=== PATIENT | female | born 1995 | race Hispanic/Latino ===

== ENCOUNTER 2017-01-13 13:57 | Emergency (ER) | payer OTHER, MEDICAID ==
[2017-01-13 14:04] VITALS: BP 129/69; PULSE 76; RESP 18; TEMP 97.6; O2SAT 99
[2017-01-13 15:54] LABS: BASO # 0.2 K/uL (0.0-0.2); BASO % 1.2 % (0.0-2.0); EOS # 0.6 K/uL (0.0-0.7); EOS % 4.2 % (0.0-4.0); HEMATOCRIT 43.3 % (34.0-47.0); LYMPH # 4.6 K/uL (1.0-4.3); MEAN CELL VOLUME 78.2 fl (81.0-99.0); MEAN CORPUSCULAR HEMOGLOBIN 24.9 pg (27.0-31.0); MEAN CORPUSCULAR HGB CONC 31.9 g/dL (33.0-37.0); MEAN PLATELET VOLUME 8.1 fl (7.2-11.7); MONO # 0.8 K/uL (0.0-0.8); MONO % 5.8 % (0.0-10.0); NEUT # 7.7 K/uL (1.8-7.0); NEUT % 55.8 % (50.0-75.0); NRBC % 0.1 % (0.0-0.0); RED CELL DISTRIBUTION WIDTH 15.3 % (11.5-14.5); WHITE BLOOD COUNT 13.9 K/uL (4.8-10.8)
--- NOTE | 2017-01-13 16:04 | US ---
HISTORY: RUQ pain radiating to back COMPARISON: 02/03/2015 TECHNIQUE: Sonographic evaluation of the right upper quadrant of the abdomen. FINDINGS: LIVER: Measures 16.5 cm in length. Hepatopedal blood flow. Fatty infiltration manifest ultrasonographically as increased echogenicity of the liver parenchyma. No mass. No intrahepatic bile duct dilatation. GALLBLADDER: Unremarkable. No gallstones. COMMON BILE DUCT: Measures 4.2 mm. No stones. No dilatation. PANCREAS: Unremarkable as visualized. No mass. No ductal dilatation. RIGHT KIDNEY: Measures 3.3 x 9.0 cm in length. Normal echogenicity. No calculus, mass, or hydronephrosis. AORTA: No aneurysmal dilatation. IVC: Unremarkable. OTHER FINDINGS: None . IMPRESSION: No acute findings related to/accounting for the clinical presentation.
[2017-01-13 16:05] LABS: ALB/GLOB RATIO 1.4 (1.0-2.1); ALKALINE PHOSPHATASE 90 U/L (38-126); ALT/SGPT 17 U/L (9-52); AST/SGOT 32 U/L (14-36); BILIRUBIN,TOTAL 0.7 mg/dl (0.2-1.3); BLOOD UREA NITROGEN 13 mg/dl (7-17); CALCIUM 9.5 mg/dL (8.4-10.2); CARBON DIOXIDE 22 mmol/L (22-30); CHLORIDE 105 mmol/L (98-107); GFR AFRICAN-AMERICAN > 60; GLUCOSE,RANDOM 78 mg/dL (65-105); LIPASE 53 U/L (23-300); POTASSIUM 5.3 MMOL/L (3.6-5.0); SODIUM 141 mmol/l (132-148); TOTAL PROTEIN 8.3 G/DL (6.3-8.2)
--- NOTE | 2017-01-13 16:44 | ED PDOC ---
HPI: Abdomen Chief Complaint (Provider): Flank pain History Per: Patient History/Exam Limitations: no limitations Onset/Duration Of Symptoms: Days Current Symptoms Are (Timing): Still Present Severity: Moderate Pain Scale Rating Of: 5 Location Of Pain/Discomfort: RUQ Quality Of Discomfort: Sharp, "Pain" Associated Symptoms: Nausea. denies: Fever, Chills, Vomiting Exacerbating Factors: Other (urination) Alleviating Factors: None Last Bowel Movement: Today Additional History Per: Patient <Sara Dong - Last Filed: 01/13/17 16:41> <Ihsan Luna - Last Filed: 01/13/17 16:54> Time Seen by Provider: 01/13/17 14:27 Chief Complaint (Nursing): Abdominal Pain Additional Complaint(s): 21 yo F with PMH of depression, CP and radha type I malformation presents to ER with c/o RUQ pain radiating to the back x 2 days. States pain is worse with urination, but denies dysuria or hematuria. No association with food. Mild nausea but no vomiting. Took 2 tabs of tylenol 2 days ago but made pain worse so discontinued use. Denies fever, chills, chest pain SOB. (Sara Dong) Supervising Attending Note - Supervising Attending Note The Documented history was done by the: Physician Passenger Car Cleaning Supervisor, Attending Physician The documented physical exam was done by the: Physician Passenger Car Cleaning Supervisor, Attending Physician The documented procedures were done by the: Physician Passenger Car Cleaning Supervisor, Attending Physician - Attestation: I have personally seen and examined this patient.: Yes I have fully participated in the care of the patient.: Yes I have reviewed all pertinent clinical information: Yes <Ihsan Luna - Last Filed: 01/13/17 16:54> Against Medical Advice <Sara Dong - Last Filed: 01/13/17 16:41> <Ihsan Luna - Last Filed: 01/13/17 16:54> - AMA Patient Left Against Medical Advice: The patient declines admission to the hospital and wishes to leave the Emergency Department. This action is against my medical advice. This decision was made with informed refusal. The patient was told that admission to the hospital is necessary. Explanation of the reasons why were discussed. The risks of leaving were explained to the patient and include, but are not limited to, worsening of known or currently unknown conditions, permanent disability and from undiagnosed or untreated conditions. The patient has the capacity to make this informed decision and understands my explanation of the current medical problem and risks of leaving. The patient voluntarily accepts these risks and signed an AMA form documenting our conversation. The patient was given the opportunity to ask questions and reconsider. The patient was encouraged to return to the Emergency Department at any time for further care. Past Medical History Reviewed: Historical Data, Nursing Documentation, Vital Signs - Medical History PMH: Anxiety, Asthma, Depression, Gastritis, Gall Bladder Disease - Surgical History Surgical History: Tonsillectomy - Family History Family History: States: Unknown Family Hx <Sara Dong - Last Filed: 01/13/17 16:41> <Ihsan Luna - Last Filed: 01/13/17 16:54> Vital Signs: Last Vital Signs Temp 97.6 F 01/13/17 14:01 Pulse 76 01/13/17 14:01 Resp 18 01/13/17 14:01 BP 129/69 01/13/17 14:01 Pulse Ox 99 01/13/17 16:50 - Home Medications Home Medications: Ambulatory Orders Medication Instructions Recorded ARIPiprazole [Abilify] 5 mg PO DAILY 04/01/16 FLUoxetine [Prozac] 20 mg PO BID 04/01/16 OXcarbazepine [Trileptal] 150 mg PO BID 04/01/16 Ciprofloxacin HCl [Cipro] 500 mg PO BID #0 tablet 04/02/16 Ciprofloxacin [Cipro] 500 mg PO Q8 #0 tab 04/02/16 - Allergies Allergies/Adverse Reactions: Allergies Allergy/AdvReac Type Severity Reaction Status Date / Time apple Allergy URTICARIA Verified 01/13/17 14:01 PEACH Allergy Mild URTICARIA Uncoded 01/13/17 14:01 PLUM Allergy URTICARIA Uncoded 01/13/17 14:01 Review of Systems Constitutional: Negative for: Fever, Chills Cardiovascular: Negative for: Chest Pain, Palpitations Respiratory: Negative for: Cough, Shortness of Breath Gastrointestinal: Positive for: Nausea, Abdominal Pain. Negative for: Vomiting Genitourinary Female: Negative for: Dysuria, Frequency, Incontinence, Hematuria Musculoskeletal: Negative for: Neck Pain, Shoulder Pain Skin: Negative for: Rash Psych: Negative for: Suicidal ideation <Sara Dong - Last Filed: 01/13/17 16:41> Physical Exam - Reviewed Nursing Documentation Reviewed: Yes Vital Signs Reviewed: Yes - Physical Exam Appears: Positive for: No Acute Distress Head Exam: Negative for: NORMAL INSPECTION (scar on right forehead from prior surgery) Skin: Positive for: Normal Color, Warm, Dry Eye Exam: Positive for: EOMI Neck: Positive for: Normal, Painless ROM Cardiovascular/Chest: Positive for: Regular Rate, Rhythm Respiratory: Positive for: Normal Breath Sounds Gastrointestinal/Abdominal: Positive for: Bowel Sounds (+), Soft, Tenderness ( RUQ with rebound, positive Mcneill's sign), Rebound. Negative for: Distended, Guarding Back: Positive for: R CVA Tenderness. Negative for: L CVA Tenderness Extremity: Positive for: Other (right wrist splint/scar from prior surgery 5 months ago) <Sara Dong - Last Filed: 01/13/17 16:41> - Laboratory Results Result Diagrams: 01/13/17 15:15 01/13/17 15:15 - ECG O2 Sat by Pulse Oximetry: 99 <Sara Dong - Last Filed: 01/13/17 16:41> - Laboratory Results Result Diagrams: 01/13/17 15:15 01/13/17 15:15 <Ihsan Luna - Last Filed: 01/13/17 16:54> - Progress ED Course And Treament: CBC, CMP, lipase, UA sent US gallbladder/CBD US resulted - wnl CT scan to r/o nephrolithiasis vs pyelonephritis Pt refused morphine, states she is feeling better Refuses CT scan because symptoms have resolved Discussed risks with pt of undiagnosed reason of pain; pt and mother verbalized understanding. AMA form signed. (Sara Dong) Disposition - Disposition Disposition: Against Medical Advice Disposition Time: 16:50 <Sara Dong - Last Filed: 01/13/17 16:41> <Ihsan Luna - Last Filed: 01/13/17 16:54> - Clinical Impression Clinical Impression: Abdominal pain - Disposition Condition: STABLE
[2017-01-13 16:50] LABS: RBC URINE 5 /hpf (0-3); URINE BILIRUBIN NEGATIVE (NEGATIVE); URINE BLOOD NEGATIVE (NEGATIVE); URINE COLOR YELLOW (YELLOW); URINE GLUCOSE (UA) NEG (Normal); URINE KETONE NEGATIVE (NEGATIVE); URINE LEUKOCYTE ESTERASE SMALL Leu/uL (Negative); URINE PROTEIN NEGATIVE (NEGATIVE); URINE UROBILINOGEN 0.2-1.0 mg/dL (0.2-1.0); WBC URINE 2 /hpf (0-5)
== END 2017-01-13 16:54 | disposition left against medical advice (07) ==
LOC: H.ER 13:57
DX: R10.9 Unspecified abdominal pain (principal)

== ENCOUNTER 2017-02-09 12:31 | Inpatient (IN) | payer OTHER, MEDICAID ==
--- NOTE | 2017-02-09 14:48 | ED PDOC ---
HPI: Psych/Substance Abuse Time Seen by Provider: 02/09/17 12:34 Chief Complaint (Nursing): Psychiatric Evaluation Chief Complaint (Provider): Psychiatric Evaluation History Per: Patient History/Exam Limitations: no limitations Onset/Duration Of Symptoms: Days (x1) Additional Complaint(s): 12:34 Tahira Ramos, 21 year old female presents to the ED on 02/09/17 sent by her psychiatrist for suicidal ideations. The patient states that she is not experiencing suicidal ideations right now, but they do come and go. The patient' s last suicidal attempt was in August 2016, as she tried to jump off a balcony. The patient states that yesterday she felt suicidal, but felt better today after talking to her mother. Past Medical History Reviewed: Historical Data, Nursing Documentation, Vital Signs Vital Signs: Last Vital Signs Temp 98.0 F 02/09/17 12:34 Pulse 72 02/09/17 12:34 Resp 22 02/09/17 12:34 BP 132/67 02/09/17 12:34 Pulse Ox 100 02/09/17 12:34 - Medical History PMH: Anxiety, Asthma, Depression, Gastritis, Gall Bladder Disease Other PMH: Cerebral Palsy, budd-chiari malformation - Surgical History Surgical History: Tonsillectomy - Family History Family History: States: Unknown Family Hx - Home Medications Home Medications: Ambulatory Orders Medication Instructions Recorded ARIPiprazole [Abilify] 5 mg PO DAILY 04/01/16 FLUoxetine [Prozac] 20 mg PO BID 04/01/16 LORazepam [Ativan] 0.5 mg PO Q8H PRN 02/09/17 OXcarbazepine [Trileptal] 300 mg PO BID 02/09/17 - Allergies Allergies/Adverse Reactions: Allergies Allergy/AdvReac Type Severity Reaction Status Date / Time apple Allergy URTICARIA Verified 01/13/17 14:01 PEACH Allergy Mild URTICARIA Uncoded 01/13/17 14:01 PLUM Allergy URTICARIA Uncoded 01/13/17 14:01 Review of Systems Psych: Positive for: Suicidal ideation Physical Exam - Reviewed Nursing Documentation Reviewed: Yes Vital Signs Reviewed: Yes - Physical Exam Appears: Positive for: Non-toxic, No Acute Distress Head Exam: Positive for: ATRAUMATIC, NORMOCEPHALIC Skin: Negative for: Normal Color (Scar on right eyebrow; multiple scars from self mutilation; right forearm surgical incision; skin graft) ENT: Positive for: Normal ENT Inspection Neck: Positive for: Normal Cardiovascular/Chest: Positive for: Regular Rate, Rhythm, Chest Non Tender Respiratory: Positive for: Normal Breath Sounds. Negative for: Accessory Muscle Use, Respiratory Distress Gastrointestinal/Abdominal: Positive for: Normal Exam, Soft. Negative for: Tenderness Extremity: Positive for: Deformity, Other (muscle contractions of right hand and right leg). Negative for: Normal ROM Neurologic/Psych: Positive for: Alert, Oriented (x3) - Laboratory Results Result Diagrams: 02/09/17 15:36 02/09/17 15:36 - ECG O2 Sat by Pulse Oximetry: 100 (RA) Pulse Ox Interpretation: Normal Medical Decision Making Medical Decision Makin - Pt signed in and I was informed by Kimberly that she is going to be admitted. Initial Plan: * ED EKG * Alcohol Serum Stat * COMP Metabolic Panel Stat * Drug Screen, Urine Stat * CBC Stat * Urinalysis Stat * EDNURTX Stat * Crisis Evaluation Stat Scribe Attestation: Documented by Melonie Henderson, acting as a scribe for Karen Blackwell PA-C. Provider Scribe Attestation: All medical record entries made by the Scribe were at my direction and personally dictated by me. I have reviewed the chart and agree that the record accurately reflects my personal performance of the history, physical exam, medical decision making, and the department course for this patient. I have also personally directed, reviewed, and agree with the discharge instructions and disposition. Disposition - Clinical Impression Clinical Impression: Depression - Patient ED Disposition Is Patient to be Admitted: Yes - Disposition Disposition Time: 15:40 Condition: STABLE - Pt Status Changed To: Hospital Disposition Of: Inpatient - Admit Certification Admit to Inpatient:: After my assessment, the patient will require hospitalization for at least two midnights. This is because of the severity of symptoms shown, intensity of services needed, and/or the medical risk in this patient being treated as an outpatient. - POA Present On Arrival: None
[2017-02-09 15:54] LABS: HEMATOCRIT 42.7 % (34.0-47.0); MEAN CELL VOLUME 78.9 fl (81.0-99.0); MEAN CORPUSCULAR HEMOGLOBIN 25.2 pg (27.0-31.0); RED CELL DISTRIBUTION WIDTH 14.1 % (11.5-14.5); WHITE BLOOD COUNT 11.8 K/uL (4.8-10.8)
[2017-02-09 15:56] LABS: URINE BILIRUBIN NEGATIVE (NEGATIVE); URINE BLOOD NEGATIVE (NEGATIVE); URINE COLOR YELLOW (YELLOW); URINE GLUCOSE (UA) NEG (Normal); URINE KETONE NEGATIVE (NEGATIVE); URINE LEUKOCYTE ESTERASE NEG Leu/uL (Negative); URINE PROTEIN NEGATIVE (NEGATIVE); URINE UROBILINOGEN 0.2-1.0 mg/dL (0.2-1.0); WBC URINE 2 /hpf (0-5)
[2017-02-09 15:58] LABS: ALB/GLOB RATIO 1.3 (1.0-2.1); ALCOHOL SERUM < 10 mg/dl (0-10); ALKALINE PHOSPHATASE 97 U/L (38-126); ALT/SGPT 26 U/L (9-52); AST/SGOT 27 U/L (14-36); BILIRUBIN,TOTAL 0.6 mg/dl (0.2-1.3); BLOOD UREA NITROGEN 7 mg/dl (7-17); CALCIUM 9.3 mg/dL (8.4-10.2); CARBON DIOXIDE 23 mmol/L (22-30); CHLORIDE 105 mmol/L (98-107); GFR AFRICAN-AMERICAN > 60; GLUCOSE,RANDOM 78 mg/dL (65-105); SODIUM 141 mmol/l (132-148); TOTAL PROTEIN 8.2 G/DL (6.3-8.2)
[2017-02-09 16:27] LABS: POTASSIUM 4.1 MMOL/L (3.6-5.0)
--- NOTE | 2017-02-09 16:45 | RAD ---
HISTORY: admission COMPARISON: Comparison chest 05/01/2015 FINDINGS: LUNGS: No active pulmonary disease. PLEURA: No significant pleural effusion identified, no pneumothorax apparent. CARDIOVASCULAR: Normal. OSSEOUS STRUCTURES: Questionable old healed fracture deformity left posterior 10th rib. VISUALIZED UPPER ABDOMEN: Normal. OTHER FINDINGS: None. IMPRESSION: No acute cardiopulmonary disease.
[2017-02-09 17:59] VITALS: O2SAT 97
[2017-02-09 19:02] VITALS: RESP 18
[2017-02-09] MEDS ORDERED: DiphenhydrAMINE 50 mg/ml Inj IM PRN (19:08)
[2017-02-09] MEDS ORDERED: Alum-Mag Hydrox-Simethicone Susp (30 mL) PO PRN (19:08)
[2017-02-09] MEDS ORDERED: Magnesium Hydroxide Susp 30 ml UD PO PRN (19:08)
[2017-02-10 08:03] LABS: T4 6.28 ug/dl (5.5-11.0)
[2017-02-10 08:16] LABS: THYROID STIMULATING HORMONE 1.9 mIU/ML (0.46-4.68)
--- NOTE | 2017-02-10 13:38 | PCM.PSYCH ---
Initial Psychiatric Evaluation - Initial Psychiatric Evaluation Type of Admission: Voluntary Legal Status: Capacity Chief Complaint (in patient's own words): my therapist sent me here Patient's Reaction to Hospitalization: i think i am fine History of Present Illness and Precipitating Events: 21 yo female who made a suicide by jumping of an 8 story window in august and was in a [facility]. she is currently seen at the clinic and is scheduled to be starting the php soon. she apparently was expressing some suicidal thoughts in her therapy session. pt states she does not want to kill herself and states she is feeling much better since her medications were started. she reports she did stop taking depakote without telling her doctor and was urged to do this by her mother. she reports she feels better not being on depakote. she reports she is bored and needs more structure and activity. she denies that she is being bullied in the community like she was last year and that she was sent her just for a precaution. apparently pt's mother has called and does not feel the patient is suicidal. she has been anxious on the unit and reported feeling "bullied on the unit" but now states that she just was misintepreting a peers. she states her mood is "fine" and states when she does feel suicidal she is able to cope with it. she reports she has goals of attending acting classes in the fall. she states she is currently feeling safe. she denies having any psychotic symptoms, but from her reports she may have some paranoid delusions. she reports taking medications as prescribed except for depakote. Current Medications: Active Medications Generic Name Dose Route Start Last Admin Trade Name Donalq PRN Reason Stop Dose Admin Acetaminophen 650 mg 02/09/17 19:08 Tylenol 325mg Tab PO Q4 PRN Pain, moderate (4-7) Al Hydrox/Mg Hydrox/Simethicone 30 ml 02/09/17 19:08 Maalox Plus 30 Ml PO Q4 PRN Dyspepsia Aripiprazole 5 mg 02/10/17 13:30 Abilify PO DAILY PERLA Diphenhydramine HCl 50 mg 02/09/17 19:08 Benadryl IM Q6 PRN Extrapyramidal S/S Unable PO Diphenhydramine HCl 50 mg 02/09/17 19:08 Benadryl PO Q6 PRN Extrapyramidal Symptoms Diphenhydramine HCl 50 mg 02/09/17 19:13 02/09/17 21:29 Benadryl PO 50 mg HS PRN Administration Sleep Fluoxetine HCl 20 mg 02/10/17 17:00 Prozac PO BID PERLA Haloperidol 5 mg 02/09/17 19:08 Haldol PO Q4 PRN Agitation Haloperidol Lactate 5 mg 02/09/17 19:08 Haldol IM Q4 PRN Agitation, Unable to Take PO Lorazepam 2 mg 02/09/17 19:08 Ativan IM Q4 PRN Anxiety/Agitation,Unable PO Lorazepam 2 mg 02/09/17 19:08 02/10/17 08:56 Ativan PO 2 mg Q4 PRN Administration Anxiety/Agitation Magnesium Hydroxide 30 ml 02/09/17 19:08 Milk Of Magnesia PO HS PRN Constipation Oxcarbazepine 300 mg 02/10/17 17:00 Trileptal PO BID PERLA Past Psychiatric History - Past Psychiatric History Previous Treatment History: Inpatient Prior Professional Help: 2 previous admissions to in- last in 2012 History of Abuse: reports being bullied in her community in the past. History of ETOH/Drug Use: denies History of Family Illness: denies Pertinent Medical Hx (Current Medical&Sleep Prob, Allergies): Allergies Allergy/AdvReac Type Severity Reaction Status Date / Time apple Allergy URTICARIA Verified 01/13/17 14:01 PEACH Allergy Mild URTICARIA Uncoded 01/13/17 14:01 PLUM Allergy URTICARIA Uncoded 01/13/17 14:01 ARIPiprazole [Abilify] 5 mg PO DAILY 04/01/16 FLUoxetine [Prozac] 20 mg PO BID 04/01/16 LORazepam [Ativan] 0.5 mg PO Q8H PRN 02/09/17 OXcarbazepine [Trileptal] 300 mg PO BID 02/09/17 pt with injuries from her suicide attempt. was in a coma. walks with a cane. has multiple surgeries to repair fractures Review of Systems - Psychiatric Psychiatric: As Per HPI Mental Status Examination - Personal Presentation Personal Presentation: Looks older than stated age Additional comments: walks with cane - Affect Affect: Constricted - Motor Activity Motor Activity: Calm - Reliability in Providing Information Reliability in Providing Information: Good - Speech Speech: Organized - Mood Mood: Neutral - Formal Thought Process Formal Thought Process: Paranoia (? feels bullied here.) - Obsessions/Compulsions Obsessions: No Compulsions: No - Cognitive Functions Orientation: Person, Place, Situation, Time Sensorium: Alert Attention/Concentration: Attentive Abstract Thinking: Garrison Estimate of Intelligence: Average Judgement: Intact, as evidence by: Insight regarding need for hospitalization Memory: Recent intact, as evidence by: Ability to recall events of the day, Remote intact, as evidenced by: Abilit to recall sig. life events - Risk Risk: Suicidal (history of attempt. denies suicidal thoughts/intent now. feels safe on unit and at home), Diminished functioning - Strength & Assets Inventory Strength & Assets Inventory: Intelligence, Family support DSM 5 DX - DSM 5 DSM 5 Diagnosis: major depression recurrent severe r/o bipolar disorder by pt's history - Recommended/Plan of Treatment Treatment Recommendations and Plan of Treatment: admit to [facility] for safety and observation gather collateral information provide supportive therapy adjust medications- restart previous medications and monitor. encouraged pt to not stop any medications without discussing with her doctor so she can get appropriate care. hospitalist consult disposition planning Projected ELOS: 3-5 days Prognosis: fair - Smoking Cessation Smoking Cessation Initiated: No Reason for not providing: does not smoke
--- NOTE | 2017-02-10 16:46 | CARD ---
APPROVED REPORT EKG Measurement Heart [id number] <Conclusion> Sinus bradycardia Otherwise normal ECG
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
--- NOTE | 2017-02-11 15:26 | PCM.PYCHPN ---
Psychiatric Progress Note - Psychiatric Progress Note Patient seen today, length of contact: discussed with team Patient Chief Complaint: when do you think i can go Problems Identified/Issues Discussed: pt talking medications as prescribed. she denies medication side effects. she is focused on being discharged tomorrow. she reports she is not suicidal. she is socializing with peers. Medication Change: No Medical Record Reviewed: Yes Mental Status Examination - Cognitive Function Orientation: Person, Place, Situation, Time Memory: Intact Attention: WNL Concentration: WNL Association: WNL Fund of Knowledge: [facility] Decription of patient's judgement and insights: fair - Mood Mood: Neutral - Affect Affect: Broad - Speech Speech: Appropriate - Formal Thought Process Formal Thought Process: No Impairment Psychotic Thoughts and Behaviors: denies a/v hallucinations - Suicidal Ideation Suicidal Ideation: No - Homicidal Ideation Homicidal Ideation: No Goal/Treatment Plan - Goal/Treatment Plan Need for Continued Stay: Remain at risks for inpatient hospitalization, Severe depression anxiety Progress Toward Problem(s) and Goals/Treatment Plan: major depression recurrent moderate continue current treatment disposition planning- refer to [facility] Estimated Date of D/C: 02/12/17
[2017-02-11 16:28] VITALS: TEMP 97.7
--- NOTE | 2017-02-12 08:24 | PCM.PYCHDC ---
Mental Status Examination - Mental Status Examination Orientation: Person, Place, Situation, Time Memory: Intact Mood: Neutral Affect: Broad Speech: Appropriate Attention: WNL Concentration: WNL Association: WNL Fund of Knowledge: WNL Formal Thought Process: No Impairment Description of patient's judgement and insight: fair Psychotic Thoughts and Behaviors: denies a/v hallucinations Suicidal Ideation: No Current Homicidal Ideation?: No Plan: pt denies any suicidal or homicidal thoughts/plan or intent Discharge Summary - Discharge Note Reason for Hospitalization: sent to er by therapist when pt was expressing feeling depressed with some suicidal thoughts Psychiatric History (includes Medical, Family, Personal Hx): history of depression, suicide attempt in past Consultations:: List each consultation separately and include: 1. Reason for request. 2. Findings. 3. Follow-up Consultations: seen by medical billing manager Summary of Hospital Course include:: 1. Description of specific treatment plan utilized for patients during their course of treatmen. 2. Summarize the time- course for resolution of acute symptoms and/or regressed behaviors. 3. Describe issues identified and worked on during hospitalization. 4. Describe medication utilized. 5. Describe medical problems identified and treated. 6. Reassessment of suicide risk Summary of Hospital Course: 21 yo female who made a suicide by jumping of an 8 story window in august and was in a [facility]hab. she is currently seen at the clinic and is scheduled to be starting the php soon. she apparently was expressing some suicidal thoughts in her therapy session. pt states she does not want to kill herself and states she is feeling much better since her medications were started. she reports she did stop taking depakote without telling her doctor and was urged to do this by her mother. she reports she feels better not being on depakote. she reports she is bored and needs more structure and activity. she denies that she is being bullied in the community like she was last year and that she was sent her just for a precaution. apparently pt's mother has called and does not feel the patient is suicidal. she has been anxious on the unit and reported feeling "bullied on the unit" but now states that she just was misintepreting a peers. she states her mood is "fine" and states when she does feel suicidal she is able to cope with it. she reports she has goals of attending acting classes in the fall. she states she is currently feeling safe. she denies having any psychotic symptoms, but from her reports she may have some paranoid delusions. she reports taking medications as prescribed except for depakote. hospital course admitted to [facility] and oriented to the unit. seen by medical providers. placed on routine safety protocols. seen by the treatment team and restarted on her previous medications. depakote was not restarted. pt attended all groups and was an active participant. she exhibited safe behaviors on the unit and with social with peers. she was agreeing to follow up with the [facility] after her discharge. he family was contacted and supported the discharge. on day of discharged the pt was denying any suicidal or homicidal thoughts/plans of intent. - Final Diagnosis (DSM 5) Condition upon Discharge: STABLE DSM 5: major depression recurrent moderate Disposition: HOME/ ROUTINE Follow-up Treatment Plan: take medications as prescribed do not use alcohol tobacco or other illicit substances follow up with aftercare as directed call 911 if any suicidal or homicidal thoughts Prescriptions/Medication Reconciliation: ARIPiprazole [Abilify] 5 mg PO DAILY #30 FLUoxetine [Prozac] 20 mg PO BID #60 OXcarbazepine [Trileptal] 300 mg PO BID #60 - Smoking Cessation Smoking Cessation Medication prescribed: No Reason for not providing: does not smoke - Antipsychotic Medications Pt discharged on 2 or more routine antipsychotic medications: No
[2017-02-12 08:52] VITALS: BP 111/70; PULSE 80
== END 2017-02-12 14:20 | disposition home or self-care (01) | DRG 885 ==
LOC: H.ER 12:31 → H.ERHOLD 16:59 → H.PSYCH 18:15
PROVIDERS: ADMIT Psychiatry & Neurology Psychiatry; ATTEND Psychiatry & Neurology Psychiatry
PROC: GZHZZZZ Group Psychotherapy (ICD-10-PCS; principal; 2017-02-09)
PROC: GZ56ZZZ Individual Psychotherapy, Supportive (ICD-10-PCS; 2017-02-09)
DX: F33.1 Major depressive disorder, recurrent, moderate (principal); R45.851 Suicidal ideations; F41.9 Anxiety disorder, unspecified; J45.909 Unspecified asthma, uncomplicated; G80.9 Cerebral palsy, unspecified; Z91.018 Allergy to other foods; K29.70 Gastritis, unspecified, without bleeding

== ENCOUNTER 2017-03-09 11:55 | Emergency (ER) | payer OTHER, MEDICAID ==
[2017-03-09 11:57] VITALS: BP 128/86; PULSE 76; TEMP 97; O2SAT 99; BMI 26.3
--- NOTE | 2017-03-09 12:20 | ED PDOC ---
HPI: Psych/Substance Abuse Time Seen by Provider: 03/09/17 12:05 Chief Complaint (Provider): Psychiatric Evaluation History Per: Patient, Family (mother) History/Exam Limitations: no limitations Onset/Duration Of Symptoms: Mins (just prior to arrival) Current Symptoms Are (Timing): Still Present Suicide/Self Injury Attempted (Context): None (patient denies) Severity: Moderate Associated Symptoms: denies: Depression, Suicidal Thoughts, Suicidal Plan Additional Complaint(s): 21 year old female with a pertinent medical history of depression and past suicidal attempts is brought into the ED by EMS for a psychiatric evaluation and a wound check. Patient states that she was at a behavioral group session at [address] [place] [address] in [place] and she took off her wound dressing on her right arm "to make her doctor's job easier" because she had an appointment with her surgeon 5x days from today to have the sutures removed. She reports that she had surgery at [facility] on 02/26/[address] Duarte after she broke her arm after a suicide attempt in August 2016. She denies trying to remove her sutures, although she thinks that one of them is loose. She denies feeling depressed, having any suicidal ideation, or a suicidal plan and she denies having any medical complaints at this time. PMD: Morris Rahman MD Orthopedic hand surgeon: Yonatan Duarte MD Past Medical History Reviewed: Historical Data, Nursing Documentation, Vital Signs Vital Signs: Last Vital Signs Temp 97 F L 03/09/17 11:56 Pulse 76 03/09/17 11:56 Resp BP 128/86 03/09/17 11:56 Pulse Ox 99 03/09/17 11:56 - Medical History PMH: Anxiety, Asthma, Bipolar Disorder, Depression, Fractures, Gastritis, Gall Bladder Disease, Migraine, Osteoporosis Denies: Alzheimer's Disease, Anemia, Arthritis, Atrial Fibrillation, Bronchitis, Cardia Arrhythmia, CHF, COPD, Crohn's Disease, Dementia, Diabetes, Diverticulitis, Emphysema, Hepatitis, HIV, HTN, Hypercholesterolemia, Hyperthyroidism, Hypothyroidism, Mitral Valve Prolapse, Multiple Sclerosis, Pancreatitis, Parkinson's Disease, Peripheral Edema, Personality Disorder, Pneumonia, Pulmonary Embolism, Chronic Kidney Disease, Rheumatoid Arthritis, Schizophrenia, Seizures, Sickle Cell Disease, Sexually Transmitted Disease, Sleep Apnea, TIA - Surgical History Surgical History: Tonsillectomy Denies: Appendectomy, CABG, Carotid Endarterectomy, Cholecystectomy, Coronary Stent, Pacemaker Other surgeries: arm surgery 02/26/2017 - Family History Family History: States: No Known Family Hx, Other Other Family History: mother has bipolar disorder - Social History Alcohol: None Drugs: Denies - Home Medications Home Medications: Ambulatory Orders Medication Instructions Recorded LORazepam [Ativan] 0.5 mg PO Q8H PRN 02/09/17 ARIPiprazole [Abilify] 5 mg PO DAILY #30 02/12/17 FLUoxetine [Prozac] 20 mg PO BID #60 02/12/17 OXcarbazepine [Trileptal] 300 mg PO BID #60 02/12/17 - Allergies Allergies/Adverse Reactions: Allergies Allergy/AdvReac Type Severity Reaction Status Date / Time apple Allergy URTICARIA Verified 03/09/17 12:13 PEACH Allergy Mild URTICARIA Uncoded 03/09/17 12:13 PLUM Allergy URTICARIA Uncoded 03/09/17 12:13 Review of Systems ROS Statement: Except As Marked, All Systems Reviewed And Found Negative Psych: Negative for: Depression, Suicidal ideation Physical Exam - Reviewed Nursing Documentation Reviewed: Yes Vital Signs Reviewed: Yes - Physical Exam Appears: Positive for: Well, Non-toxic, No Acute Distress Head Exam: Positive for: ATRAUMATIC, NORMOCEPHALIC Skin: Positive for: Normal Color, Warm, Dry Neck: Positive for: Normal Cardiovascular/Chest: Positive for: Regular Rate, Rhythm Respiratory: Positive for: Normal Breath Sounds. Negative for: Respiratory Distress Extremity: Positive for: Other (right upper extremity: suture wound noted to dorsum, volar dorsal surface: sutures in tact, (+) discharge, no loose sutures noted.) Neurologic/Psych: Positive for: Alert, Oriented (3x) - Laboratory Results Result Diagrams: 03/09/17 14:28 03/09/17 14:28 - ECG O2 Sat by Pulse Oximetry: 99 (RA) Pulse Ox Interpretation: Normal - Progress ED Course And Treament: seen by crisis Cleared by Dr. Pretty for d/c Diagnosis Major Depressive disorder Xry of wrist:Impression: ORIF changes distal right radius and ulna. In situ fixation plate attached to the distal ulna. Residual screw holes are present within the distal right radius consistent with removal of fixation hardware. . Deformity of the distal radius and ulna with with apparent CT callus formation and cortical new bone. The possibility of osteomyelitis cannot be excluded. Infiltration changes and swelling of the subcutaneous tissues of the distal forearm, likely posttraumatic and postoperative however the possibility of a cellulitis not excluded. xry of hand: IMPRESSION: No acute findings related to/accounting for the clinical presentation. Additional benign and/or incidental findings described above. Findings d/w Dr. Rehman. Patient has no findings of cellulitis/increased pain/ fevers/chills. d/w Dr. Rubalcava orthopedics who is managing patient's care. States Xry findings are post-surgical in nature most likely and patient will f/u with him on Thursday. If any pain or new symptoms occur, patient can call office on Thursday to discuss with them at that time. Medical Decision Making Medical Decision Makin:05 Initial impression: 21 year old female with possible self injurious behavior. Initial plan: * XRay forearm right * XRay hand right 3 views * alcohol serum * CMP * drug screen, urinary * urine * udip * CBC * urinalysis * reevaluation Scribe Attestation: Documented by Amita Canela, acting as a scribe for Luis Rush PA-C. Provider Scribe Attestation: All medical record entries made by the Scribe were at my direction and personally dictated by me. I have reviewed the chart and agree that the record accurately reflects my personal performance of the history, physical exam, medical decision making, and the department course for this patient. I have also personally directed, reviewed, and agree with the discharge instructions and disposition. Disposition - Clinical Impression Clinical Impression: Major depressive disorder, Encounter for wound re-check - Patient ED Disposition Is Patient to be Admitted: No - Disposition Disposition: Routine/Home Disposition Time: 15:49 Condition: FAIR Additional Instructions: FOLLOW UP WITH DR. RUBALCAVA ON THURSDAY PLANNED PLEASE DO NOT REMOVE SPLINT OR SUTURES ON YOUR OWN. Instructions: Splint Care (ED)
[2017-03-09 12:25] VITALS: RESP 18
--- NOTE | 2017-03-09 13:02 | RAD ---
PROCEDURE: Right forearm dated 03/09/2017 HISTORY: History of fracture. COMPARISON: No prior TECHNIQUE: Two views of the right foot performed and compared with concurrent radiographs of the right hand FINDINGS: BONES: The current study reveals postoperative changes of the distal right radius and ulna. . There is a metallic fixation plate transfixed to the distal ulna of which appears intact. No evidence of loosening. . Residual screw holes from since removed hardware distal right radius. There is marked deformity of the distal right radius and to a lesser degree ulna with what appears to represent callus formation and cortical new bone. The possibility of an osteomyelitis cannot be excluded. There are of infiltration changes of the subcutaneous tissues likely at some combination of posttraumatic and postoperative sequela however would possibility of a cellulitis not excluded. Diffuse demineralization of the bones of the wrist as well as the distal radius and ulna. No subcutaneous evidence identified. Note made of what appear to represent residual screw holes within the shaft of the 3rd metacarpal as well. Clinical correlation recommended Impression: ORIF changes distal right radius and ulna. In situ fixation plate attached to the distal ulna. Residual screw holes are present within the distal right radius consistent with removal of fixation hardware. . Deformity of the distal radius and ulna with with apparent CT callus formation and cortical new bone. The possibility of osteomyelitis cannot be excluded. Infiltration changes and swelling of the subcutaneous tissues of the distal forearm, likely posttraumatic and postoperative however the possibility of a cellulitis not excluded.
[2017-03-09 13:17] LABS: SQUAMOUS EPITHIAL 4 /hpf (0-5); URINE BACTERIA RARE (<OCC); URINE BILIRUBIN NEGATIVE (NEGATIVE); URINE BLOOD LARGE (NEGATIVE); URINE CLARITY SLIGHTY-CLOUDY (Clear); URINE COLOR YELLOW (YELLOW); URINE GLUCOSE (UA) NEG (Normal); URINE LEUKOCYTE ESTERASE SMALL Leu/uL (Negative); URINE NITRATE NEGATIVE (NEGATIVE); URINE PROTEIN 30 mg/dL (NEGATIVE); URINE UROBILINOGEN 0.2-1.0 mg/dL (0.2-1.0)
[2017-03-09 13:51] LABS: BARBITURATES, UR NEGATIVE (NEGATIVE); BENZODIAZEPINES, UR NEGATIVE (NEGATIVE)
[2017-03-09 13:54] LABS: OPIATES, UR NEGATIVE (NEGATIVE)
[2017-03-09 13:55] LABS: PHENCYCLIDINE, UR NEGATIVE (NEGATIVE)
[2017-03-09 14:34] LABS: BASO # 0.1 K/uL (0.0-0.2); BASO % 0.8 % (0.0-2.0); EOS # 0.4 K/uL (0.0-0.7); EOS % 3.5 % (0.0-4.0); HEMOGLOBIN 12.3 g/dL (12.0-16.0); LYMPH # 2.6 K/uL (1.0-4.3); LYMPH % 23.5 % (20.0-40.0); MEAN CELL VOLUME 77.6 fl (81.0-99.0); MEAN CORPUSCULAR HEMOGLOBIN 24.8 pg (27.0-31.0); MEAN PLATELET VOLUME 7.9 fl (7.2-11.7); MONO # 0.6 K/uL (0.0-0.8); MONO % 5.7 % (0.0-10.0); NEUT # 7.2 K/uL (1.8-7.0); NEUT % 66.5 % (50.0-75.0); RBC 4.94 Mil/uL (3.80-5.20); WHITE BLOOD COUNT 10.9 K/uL (4.8-10.8)
[2017-03-09 14:46] LABS: ALB/GLOB RATIO 1.5 (1.0-2.1); ALBUMIN 4.5 g/dL (3.5-5.0); ALT/SGPT 48 U/L (9-52); AST/SGOT 26 U/L (14-36); BLOOD UREA NITROGEN 13 mg/dl (7-17); CALCIUM 9.7 mg/dL (8.4-10.2); GFR AFRICAN-AMERICAN > 60; GFR NON-AFRICAN AMERICAN > 60
--- NOTE | 2017-03-09 14:54 | RAD ---
PROCEDURE: Right Hand Radiographs. HISTORY: h/o fx COMPARISON: None. FINDINGS: BONES: Profound osteopenia visualized osseous structures. Residual orthopedic hardware distal radius. Evidence of prior, subsequently removed orthopedic hardware affecting the 2nd and 3rd metacarpals. JOINTS: Contracture deformities noted at the proximal interphalangeal joint level. SOFT TISSUES: Normal. OTHER FINDINGS: None. IMPRESSION: No acute findings related to/accounting for the clinical presentation. Additional benign and/or incidental findings described above.
== END 2017-03-09 16:33 | disposition home or self-care (01) ==
LOC: H.ER 11:55
DX: F33.9 Major depressive disorder, recurrent, unspecified (principal); F31.9 Bipolar disorder, unspecified; F41.9 Anxiety disorder, unspecified; Z48.00 Encounter for change or removal of nonsurgical wound dressing; J45.909 Unspecified asthma, uncomplicated

== ENCOUNTER 2017-04-27 10:40 | Inpatient (IN) | payer OTHER, MEDICAID ==
[2017-04-27 10:44] VITALS: BMI 26.9
--- NOTE | 2017-04-27 11:12 | ED PDOC ---
HPI: Psych/Substance Abuse Time Seen by Provider: 04/27/17 10:50 Chief Complaint (Nursing): Psychiatric Evaluation Chief Complaint (Provider): psych eval History Per: Patient (21 y/o female here with mother for evaluation of agitation /suicidal statement. Mother feels patient has been more aggressive due to Ability medication and has d/c abilify this week until today. Was given one dose that aggravated patient and may have attributed to her smashing ipad. Patient has h/o jumping out of building secondary to suicidal thoughts in care home with multiple fx and long recovery. Currently states she is upset b/c of argument with grandmother and premenstrual syndrome.) Past Medical History Reviewed: Historical Data, Nursing Documentation, Vital Signs Vital Signs: Last Vital Signs Temp 99 F 04/27/17 10:42 Pulse 111 H 04/27/17 10:42 Resp BP 154/97 H 04/27/17 10:42 Pulse Ox 98 04/27/17 10:42 - Medical History PMH: Anxiety, Asthma, Bipolar Disorder, Depression, Fractures, Gastritis, Gall Bladder Disease, Migraine, Osteoporosis Denies: Alzheimer's Disease, Anemia, Arthritis, Atrial Fibrillation, Bronchitis, Cardia Arrhythmia, CHF, COPD, Crohn's Disease, Dementia, Diabetes, Diverticulitis, Emphysema, Hepatitis, HIV, HTN, Hypercholesterolemia, Hyperthyroidism, Hypothyroidism, Mitral Valve Prolapse, Multiple Sclerosis, Pancreatitis, Parkinson's Disease, Peripheral Edema, Personality Disorder, Pneumonia, Pulmonary Embolism, Chronic Kidney Disease, Rheumatoid Arthritis, Schizophrenia, Seizures, Sickle Cell Disease, Sexually Transmitted Disease, Sleep Apnea, TIA Other PMH: h/o Major Depression - Surgical History Surgical History: Tonsillectomy Denies: Appendectomy, CABG, Carotid Endarterectomy, Cholecystectomy, Coronary Stent, Pacemaker - Family History Family History: States: Unknown Family Hx - Home Medications Home Medications: Ambulatory Orders Medication Instructions Recorded LORazepam [Ativan] 0.5 mg PO Q8H PRN 02/09/17 ARIPiprazole [Abilify] 5 mg PO DAILY #30 02/12/17 FLUoxetine [Prozac] 20 mg PO BID #60 02/12/17 OXcarbazepine [Trileptal] 300 mg PO BID #60 02/12/17 - Allergies Allergies/Adverse Reactions: Allergies Allergy/AdvReac Type Severity Reaction Status Date / Time apple Allergy URTICARIA Verified 04/27/17 10:57 PEACH Allergy Mild URTICARIA Uncoded 03/09/17 12:13 PLUM Allergy URTICARIA Uncoded 03/09/17 12:13 Review of Systems ROS Statement: Except As Marked, All Systems Reviewed And Found Negative Physical Exam - Reviewed Nursing Documentation Reviewed: Yes Vital Signs Reviewed: Yes - Physical Exam Appears: Positive for: Well, Non-toxic, No Acute Distress Head Exam: Positive for: ATRAUMATIC, NORMAL INSPECTION, NORMOCEPHALIC Skin: Positive for: Normal Color, Warm, DRY Eye Exam: Positive for: EOMI, Normal appearance, PERRL ENT: Positive for: Normal ENT Inspection Neck: Positive for: Normal, Painless ROM Cardiovascular/Chest: Positive for: Regular Rate, Rhythm Respiratory: Positive for: CNT, Normal Breath Sounds Gastrointestinal/Abdominal: Positive for: Normal Exam, Bowel Sounds, Soft Back: Positive for: Normal Inspection Extremity: Positive for: Normal ROM Neurologic/Psych: Positive for: Alert, Oriented - Laboratory Results Result Diagrams: 04/27/17 11:37 04/27/17 11:37 - ECG O2 Sat by Pulse Oximetry: 98 - Progress ED Course And Treament: SEEN BY CRISIS ADMIT TO DR. ADAMS DIAGNOSIS DEPRESSION Disposition - Clinical Impression Clinical Impression: Depression - Patient ED Disposition Is Patient to be Admitted: Yes - Disposition Disposition Time: 12:37 Condition: FAIR Forms: [facility] (Sinhala) - Pt Status Changed To: Hospital Disposition Of: Inpatient - Admit Certification Admit to Inpatient:: After my assessment, the patient will require hospitalization for at least two midnights. This is because of the severity of symptoms shown, intensity of services needed, and/or the medical risk in this patient being treated as an outpatient.
[2017-04-27 11:38] LABS: RBC URINE 2950 /hpf (0-3); URINE BILIRUBIN NEGATIVE (NEGATIVE); URINE BLOOD LARGE (NEGATIVE); URINE COLOR YELLOW (YELLOW); URINE GLUCOSE (UA) NEG (Normal); URINE KETONE NEGATIVE (NEGATIVE); URINE LEUKOCYTE ESTERASE SMALL Leu/uL (Negative); URINE PROTEIN 100 mg/dL (NEGATIVE); URINE UROBILINOGEN 0.2-1.0 mg/dL (0.2-1.0); WBC URINE 16 /hpf (0-5)
[2017-04-27 11:48] LABS: BASO # 0.1 K/uL (0.0-0.2); BASO % 1.2 % (0.0-2.0); EOS # 0.5 K/uL (0.0-0.7); EOS % 4.7 % (0.0-4.0); HEMATOCRIT 41.8 % (34.0-47.0); LYMPH # 2.7 K/uL (1.0-4.3); LYMPH % 22.9 % (20.0-40.0); MEAN CELL VOLUME 76.9 fl (81.0-99.0); MEAN CORPUSCULAR HEMOGLOBIN 24.9 pg (27.0-31.0); MEAN CORPUSCULAR HGB CONC 32.3 g/dL (33.0-37.0); MEAN PLATELET VOLUME 8.1 fl (7.2-11.7); MONO # 0.6 K/uL (0.0-0.8); NEUT # 7.7 K/uL (1.8-7.0); NEUT % 66.2 % (50.0-75.0); NRBC % 0.1 % (0.0-0.0); WHITE BLOOD COUNT 11.6 K/uL (4.8-10.8)
[2017-04-27 12:00] LABS: ALCOHOL SERUM < 10 mg/dl (0-10); BLOOD UREA NITROGEN 11 mg/dl (7-17); CALCIUM 9.7 mg/dL (8.4-10.2); CARBON DIOXIDE 26 mmol/L (22-30); CHLORIDE 104 mmol/L (98-107); GFR AFRICAN-AMERICAN > 60; GLUCOSE,RANDOM 91 mg/dL (65-105); POTASSIUM 4.2 MMOL/L (3.6-5.0); SODIUM 141 mmol/l (132-148)
[2017-04-27 13:23] VITALS: O2SAT 99
[2017-04-27] MEDS ORDERED: Alum-Mag Hydrox-Simethicone Susp (30 mL) PO PRN (15:15)
[2017-04-27] MEDS ORDERED: Magnesium Hydroxide Susp 30 ml UD PO PRN (15:15)
[2017-04-27] MEDS ORDERED: DiphenhydrAMINE 50 mg/ml Inj IM PRN (15:15)
[2017-04-27 18:16] VITALS: TEMP 97.2
--- NOTE | 2017-04-27 18:17 | PCM.BM ---
Treatment Plan Problems - Problems identified on initial assessmt Agitated/agressive behavior Date Initiated: 04/27/17 Time Initiated: 18:16 Assessment reference: NA Status: Active Treatment assets and liabiliti Patient Assests: self-reliant, ADL independent, negotiates basic needs, good past tx response Patient Liabilities: relationship conflicts (emoitonal issues), other - Milieu Protocol Maintain good personal hygiene: daily Encourage regular showers, daily Remind patient to perform daily oral care, daily Assist patient to perform ADL's Maintain personal safety: daily Educate patient to report safety concerns to staff, daily Monitor environment for contraband/sharps, every shift Educate patient to report safety concerns to staff, every shift Monitor environment for contraband/sharps Medication safety: Monitor for expected outcome, potential side effects: every shift, Assess barriers to learning: every shift, daily, Assess readiness for medication education: every shift, daily
--- NOTE | 2017-04-27 21:03 | PCM.RRTMUL ---
BUSINESS AREA MANAGER Nurse Assessment - Situation BUSINESS AREA MANAGER Responder Arrival Time:: 08:45 Location:: 3rd floor Room Number:: [id number] BUSINESS AREA MANAGER Reason for Call: Tachycardia (Seizure like episode ) BUSINESS AREA MANAGER Called By: RN - IV IV Inserted during BUSINESS AREA MANAGER?: No - Respiratory Oxygen Delivery Method:: Room Air - Vital Signs Blood Pressure:: 149/77 Pulse Rate:: 77 Respiratory Rate:: 18 Temperature:: 97.2 F I.Reason for BUSINESS AREA MANAGER - A) Acute Change in Patient: Subjective: BUSINESS AREA MANAGER was called by RN at 8:42pm for 21 y/o F due to questionable seizure like episode/twitching which lasted less than a min and pt was AAO. upon arrival pt was stable, awake, verbally responsive and able to follow all commands. initial VS BP 149/81, HR113 and O2 sat 99%. unremarkable PE, Accu chek 104 BS, ECG showed sinus tachycardia. BUSINESS AREA MANAGER ended at 9:00pm with BP159/92, HR112, O2 sat 99%, RR 22 and patient was sent to ER for head CT and further evaluation. - Case discussed with Dr. Gil --- Lex Rush, PGY-1 - A) Initial Vital Signs: Blood Pressure: 149/81 Pulse Rate: 113 Respiratory Rate: 22 O2 Sat by Pulse Oximetry: 99 Finger Stick Blood Glucose: 104 - B) Neurological Status (Select all that apply): Alert, Responsive, Oriented, Verbal, Follows Commands - C) Respiratory Oxygen Delivery Method: Room Air - Constitutional Appears: Well, No Acute Distress - Respiratory Exam Respiratory Exam: Clear to Ausculation Bilateral. absent: Accessory Muscle Use , Chest Wall Tenderness - Cardiovascular Exam Cardiovascular Exam: Tachycardia, REGULAR RHYTHM, +S1, +S2 - Neurological Exam Neurological Exam: Alert, Awake, Oriented x3 Plan - A. End of BUSINESS AREA MANAGER Vital Signs: Blood Pressure: 159/92 Pulse Rate: 112 Respiratory Rate: 22 O2 Sat by Pulse Oximetry: 99
[2017-04-27 21:14] VITALS: BP 159/92; PULSE 112; RESP 22
--- NOTE | 2017-04-27 22:22 | CT ---
EXAM: CT Head Without Intravenous Contrast CLINICAL HISTORY: 21 years old, female; Signs and symptoms; Other: Twitching TECHNIQUE: Axial computed tomography images of the head/brain without intravenous contrast. All CT scans at this facility use one or more dose reduction techniques, viz.: automated exposure control; ma/kV adjustment per patient size (including targeted exams where dose is matched to indication; i.e. head); or iterative reconstruction technique. Coronal and sagittal reformatted images were created and reviewed. COMPARISON: CT HEAD OR BRAIN W/O CONT 12/09/2013 6:12:31 PM FINDINGS: Brain: No acute intracranial hemorrhage. Postoperative changes identified within the right frontal lobe, an interval change when compared with 2013 examination. No significant periventricular white matter disease. No edema. Ventricles: No significant ventriculomegaly. Bones: No acute displaced fracture. Sinuses: Mucoperiosteal thickening within the bilateral ethmoid sinuses. Postoperative change within the right maxillary sinus. Mastoid air cells: Unremarkable as visualized. No mastoid effusion. IMPRESSION: No acute intracranial hemorrhage, or suspicious mass effect.
--- NOTE | 2017-04-28 09:41 | RAD ---
PROCEDURE: CHEST RADIOGRAPH, 1 VIEW HISTORY: Chest pain COMPARISON: 02/09/2017. FINDINGS: LUNGS: The lungs are well inflated. The right lung is clear. There is diffuse haziness in the left lung. PLEURA: No pneumothorax or pleural fluid seen. CARDIOVASCULAR: Normal. OSSEOUS STRUCTURES: No significant abnormalities. VISUALIZED UPPER ABDOMEN: Normal. OTHER FINDINGS: None. IMPRESSION: Diffuse haziness in the left lung could represent layering pleural effusion. PA and lateral chest radiographs are recommended for further evaluation.
== END 2017-04-27 21:31 | disposition short-term general hospital (02) | DRG 881 ==
LOC: H.ER 10:40 → H.ERHOLD 12:38 → H.PSYCH 14:47
PROVIDERS: ADMIT Psychiatry & Neurology Psychiatry; ATTEND Psychiatry & Neurology Psychiatry
PROC: GZ58ZZZ Individual Psychotherapy, Cognitive-Behavioral (ICD-10-PCS; principal; 2017-04-27)
DX: F32.9 Major depressive disorder, single episode, unspecified (principal); R56.9 Unspecified convulsions; R00.0 Tachycardia, unspecified; F41.9 Anxiety disorder, unspecified; J45.909 Unspecified asthma, uncomplicated; K29.70 Gastritis, unspecified, without bleeding

== ENCOUNTER 2017-04-27 21:16 | Inpatient (IN) | payer OTHER, MEDICAID ==
[2017-04-27 21:16] VITALS: BMI 26.9
--- NOTE | 2017-04-27 21:33 | ED PDOC ---
HPI: Chest Pain Time Seen by Provider: 04/27/17 21:20 Chief Complaint (Nursing): Seizure Chief Complaint (Provider): Chest pain, seizure like activity History Per: Patient, Other (records) History/Exam Limitations: no limitations Onset/Duration Of Symptoms: Mins Current Symptoms Are (Timing): Gone Now Additional Complaint(s): The patient is a 21yo female, past medical history of asthma, bipolar depressive disorder, admitted earlier today to psychiatric floor for further treatment of her depression. Patient has a twitching type of movement and an episode of confusion after which a rapid response was activated in unit and patient was brought to the ED after evaluation by the FARM PRODUCTS SHIPPER and Dr. Gil. On arrival to ED, patient also reports 1 hour prior, she had an episode of chest pain, which has since resolved. Patient's chest pain was worked up by Dr. Gil who ordered ddimer and troponin levels which were both normal. Patient denies any other medical complaints. Past Medical History Reviewed: Historical Data, Nursing Documentation, Vital Signs Vital Signs: Last Vital Signs Temp 98.6 F 04/28/17 01:00 Pulse 106 H 04/28/17 01:24 Resp 18 04/28/17 01:24 BP 130/73 04/28/17 01:00 Pulse Ox 98 04/28/17 01:24 - Medical History PMH: Anxiety, Asthma, Bipolar Disorder, Depression, Fractures, Gastritis, Gall Bladder Disease, Migraine, Osteoporosis Denies: Alzheimer's Disease, Anemia, Arthritis, Atrial Fibrillation, Bronchitis, Cardia Arrhythmia, CHF, COPD, Crohn's Disease, Dementia, Diabetes, Diverticulitis, Emphysema, Hepatitis, HIV, HTN, Hypercholesterolemia, Hyperthyroidism, Hypothyroidism, Mitral Valve Prolapse, Multiple Sclerosis, Pancreatitis, Parkinson's Disease, Peripheral Edema, Personality Disorder, Pneumonia, Pulmonary Embolism, Chronic Kidney Disease, Rheumatoid Arthritis, Schizophrenia, Seizures, Sickle Cell Disease, Sexually Transmitted Disease, Sleep Apnea, TIA - Surgical History Surgical History: Tonsillectomy Denies: Appendectomy, CABG, Carotid Endarterectomy, Cholecystectomy, Coronary Stent, Pacemaker - Family History Family History: States: Unknown Family Hx - Social History Current smoker - smoking cessation education provided: No Alcohol: None Drugs: Denies - Home Medications Home Medications: Ambulatory Orders Medication Instructions Recorded LORazepam [Ativan] 0.5 mg PO Q8H PRN 02/09/17 OXcarbazepine [Trileptal] 300 mg PO BID #60 02/12/17 ARIPiprazole [Abilify] 15 mg PO DAILY 04/27/17 Sertraline [Zoloft] 25 mg PO DAILY 04/27/17 - Allergies Allergies/Adverse Reactions: Allergies Allergy/AdvReac Type Severity Reaction Status Date / Time apple Allergy URTICARIA Verified 04/27/17 10:57 PEACH Allergy Mild URTICARIA Uncoded 03/09/17 12:13 PLUM Allergy URTICARIA Uncoded 03/09/17 12:13 Review of Systems ROS Statement: Except As Marked, All Systems Reviewed And Found Negative Cardiovascular: Positive for: Chest Pain (now resolved) Neurological: Positive for: Seizures (seizure like episode) Physical Exam - Reviewed Nursing Documentation Reviewed: Yes Vital Signs Reviewed: Yes - Physical Exam Appears: Positive for: Well, Non-toxic, No Acute Distress Head Exam: Positive for: ATRAUMATIC, NORMAL INSPECTION, NORMOCEPHALIC Skin: Positive for: Normal Color, Warm Eye Exam: Positive for: Normal appearance Neck: Positive for: Normal, Supple Cardiovascular/Chest: Positive for: Regular Rate, Rhythm Respiratory: Positive for: Normal Breath Sounds. Negative for: Respiratory Distress Gastrointestinal/Abdominal: Positive for: Normal Exam Back: Positive for: Normal Inspection Extremity: Positive for: Normal ROM. Negative for: Deformity, Swelling Neurologic/Psych: Positive for: Alert, Oriented, Motor/Sensory Deficits, Other ( patient's speech slow to respond, resolved within couple minutes) - Laboratory Results Result Diagrams: 04/27/17 23:00 04/28/17 04:20 - ECG O2 Sat by Pulse Oximetry: 100 (RA) Pulse Ox Interpretation: Normal - Critical Care Total Time (In Min): 30 Documented Critical Care: Time excludes all time spent performint seperately billable procedures Medical Decision Making Medical Decision Making: Time: 2129 Impression: 19y/o with seizure like activity and chest pain in setting of recent hospitalization for bipolar depression Plan: -- Labs -- EKG -- Chest x-ray -- Accucheck -- CT Head Reassess Time: 2154 Labs reviewed and show no clinically significant abnormalities. Chest x-ray as read by provider indicates no acute disease. Case discussed with patient's PCP Aaron Fatima, who is aware of plan. Patient to be admitted to telemetry for chest pain and seizure like activity. Time: 2226 Provider called to bedside by network security analyst for evaluation of a possible seizure activity. Patient observed to have a seizure, which stopped 15 seconds later. Time: 2228 Second seizure episode witnessed. Ativan 2mg IV ordered. Keppra 750mg/100ml NS IVPB Patient to be upgraded to ICU. Dr. Gil, hospitalist production controller, informed. Time: [address] Guaman, neurologist production controller who advised if Vimpat is available, stop Keppra and start Vimpat. Keppra order cancelled and Vimpat 200mg/100ml NS IVPB ordered. Patient's PCP Aaron Fatima also made aware of new updates. CT Head FINDINGS: Brain: No acute intracranial hemorrhage. Postoperative changes identified within the right frontal lobe, an interval change when compared with 2014 examination. No significant periventricular white matter disease. No edema. Ventricles: No significant ventriculomegaly. Bones: No acute displaced fracture. Sinuses: Mucoperiosteal thickening within the bilateral ethmoid sinuses. Postoperative change within the right maxillary sinus. Mastoid air cells: Unremarkable as visualized. No mastoid effusion. IMPRESSION: No acute intracranial hemorrhage, or suspicious mass effect. Time: 2336 Patient with another episode of witnessed seizure. Ativan 2mg IV ordered Time: 2341 Upon re-evaluation by provider, patient noted to have multiple healed scars on her right forearm, indicative of surgeries; patient also with right forehead scar. Patient's mother is at bedside and she provides more history; mother reports in October, patient fell from [facility] and incurred severe trauma to her right head, right arm and right leg. Patient was then hospitalized and required multiple surgeries including neurocranial reconstruction, right forearm reconstruction and right knee surgery. Patient was subsequently given a diagnosis of clonus. Mother reports some acitivity she's noted at home is similar to clonus however seizure like activity noted by provider is different than previous episodes of clonus as described by the mother. Time: 2355 Patient with another episode of seizure, Ativan 2mg IV ordered. Scribe Attestation: Documented by Francesca Wilson acting as a scribe for Nagi Jara MD. Provider Attestation: All medical record entries made by the Scribe were at my direction and personally dictated by me. I have reviewed the chart and agree that the record accurately reflects my personal performance of the history, physical exam, medical decision making, and the department course for this patient. I have also personally directed, reviewed, and agree with the discharge instructions and disposition. Disposition - Clinical Impression Clinical Impression: Seizure - Patient ED Disposition Is Patient to be Admitted: Yes Discussed With Dr.: Jackelyn Gil (Genesis Fatima/Dr Guaman) Counseled Patient/Family Regarding: Studies Performed, Diagnosis - Disposition Disposition Time: 21:10 Condition: GUARDED - Pt Status Changed To: Hospital Disposition Of: Inpatient - Admit Certification Admit to Inpatient:: After my assessment, the patient will require hospitalization for at least two midnights. This is because of the severity of symptoms shown, intensity of services needed, and/or the medical risk in this patient being treated as an outpatient.
[2017-04-27] MEDS ORDERED: Lacosamide 200mg/20ml 200 MG in Sodium Chloride 0.9% 100 ML IVPB STA (22:37)
--- NOTE | 2017-04-27 22:49 | CP.PCM.CON ---
History of Present Illness - History of Present Illness History of Present Illness: CC: New-onset seizures HPI: This is a 21-year-old female with medical history significant for depression, anxiety, bipolar disorder, and asthma among other medical conditions who was initially admitted to psychiatry for treatment of depression and for possible suicidal ideation. This evening the psychiatry staff reported that patient was complaining of chest pain. At that time her vital signs were stable. Labs, chest x-ray, and EKG were ordered for further workup. While staff was starting her workup, she was noted to have 2 episodes of what appeared to be seizure-like activity. An CARTOGRAPHY SUPERVISOR was called. By the time the CARTOGRAPHY SUPERVISOR team had arrived, seizure activity had resolved, and patient was awake and interactive. Vital signs were stable, and blood sugar was over 100. Patient did state that she felt weird before the seizure. Patient denied prior history of seizures, but she did report myoclonic episodesin the past. Patient does state that she has suffered from head trauma in the past, about 6-7 months ago. Patient denies chest pain currently, denies shortness of breath, denies fevers, chills, nausea. Patient denies any focal weakness. Review of systems: 14 systems reviewed, negative other than HPI Medical history: Depression, anxiety, bipolar disorder, asthma, migraines, gastritis, possible gallstones Surgical history: Tonsil surgery Allergies: No known medical allergies Medications: As per med rec Family history: No relevant family history Social history: Lives with family, denies alcohol, denies tobacco, denies drugs Past Patient History - Infectious Disease Hx of Infectious Diseases: None - Past Medical History & Family History Past Medical History?: Yes - Past Social History Alcohol: None Drugs: Denies - CARDIAC Hx Atrial Fibrillation: No Hx Cardia Arrhythmia: No Hx Congestive Heart Failure: No Hx Hypercholesterolemia: No Hx Hypertension: No Hx Mitral Valve Prolapse: No Hx Pacemaker: No Hx Peripheral Edema: No - PULMONARY Hx Asthma: Yes Hx Bronchitis: No Hx Chronic Obstructive Pulmonary Disease (COPD): No Hx Emphysema: No Hx Pneumonia: No Hx Pulmonary Embolism: No Hx Sleep Apnea: No - NEUROLOGICAL Hx Alzheimer's Disease: No Hx Dementia: No Hx Migraine: Yes Hx Multiple Sclerosis: No Hx Parkinson's Disease: No Hx Seizures: No Hx Transient Ischemic Attacks (TIA): No - HEENT Hx HEENT Problems: No - RENAL Hx Chronic Kidney Disease: No - ENDOCRINE/METABOLIC Hx Hyperthyroidism: No Hx Hypothyroidism: No - HEMATOLOGICAL/ONCOLOGICAL Hx Anemia: No Hx Human Immunodeficiency Virus (HIV): No Hx Sickle Cell Disease: No - INTEGUMENTARY Hx Squamous Cell: Yes Other/Comment: liu from [employer] - MUSCULOSKELETAL/RHEUMATOLOGICAL Hx Arthritis: No Hx Fractures: Yes Hx Osteoporosis: Yes Hx Rheumatoid Arthritis: No - GASTROINTESTINAL Hx Crohn's Disease: No Hx Diverticulitis: No Hx Gall Bladder Disease: Yes Hx Gastritis: Yes Hx Pancreatitis: No - GENITOURINARY/GYNECOLOGICAL Hx Sexually Transmitted Disorders: No - PSYCHIATRIC Hx Anxiety: Yes Hx Bipolar Disorder: Yes Hx Depression: Yes Hx Schizophrenia: No - SURGICAL HISTORY Hx Appendectomy: No Hx Carotid Endarterectomy: No Hx Cholecystectomy: No Hx Coronary Artery Bypass Graft: No Hx Coronary Stent: No Hx Tonsillectomy: Yes - ANESTHESIA Hx Anesthesia: Yes Hx Anesthesia Reactions: No Hx Malignant Hyperthermia: No Meds Allergies/Adverse Reactions: Allergies Allergy/AdvReac Type Severity Reaction Status Date / Time apple Allergy URTICARIA Verified 04/27/17 10:57 PEACH Allergy Mild URTICARIA Uncoded 03/09/17 12:13 PLUM Allergy URTICARIA Uncoded 03/09/17 12:13 - Medications Medications: Current Medications Lacosamide 200mg/20ml 200 mg/ (Sodium Chloride) 120 mls @ 120 mls/hr IVPB STAT STA Stop: 04/27/17 23:36 Physical Exam - Constitutional Appears: No Acute Distress Additional comments: awake and alert, but did have several observed episodes of seizure like activity - Head Exam Head Exam: ATRAUMATIC, NORMOCEPHALIC - Eye Exam Eye Exam: EOMI, PERRL - ENT Exam ENT Exam: Mucous Membranes Moist - Neck Exam Neck exam: Positive for: Full Rom - Respiratory Exam Respiratory Exam: Clear to Auscultation Bilateral, NORMAL BREATHING PATTERN - Cardiovascular Exam Cardiovascular Exam: Tachycardia, +S1, +S2 - GI/Abdominal Exam GI & Abdominal Exam: Normal Bowel Sounds, Soft - Extremities Exam Extremities exam: Positive for: full ROM, normal inspection - Neurological Exam Neurological exam: Alert, CN II-XII Intact, Oriented x3 - Psychiatric Exam Psychiatric exam: Flat Affect - Skin Skin Exam: Dry, Warm Results - Vital Signs Recent Vital Signs: Last Vital Signs Temp 98.5 F 04/27/17 21:23 Pulse 106 H 04/27/17 21:23 Resp 16 04/27/17 21:23 BP 121/82 04/27/17 21:23 Pulse Ox 100 04/27/17 22:45 - Imaging and Cardiology CT scan - head Status: Pending Assessment & Plan (1) New onset seizure Assessment and Plan: 21 y/o female who was moved from psych to ER 2/2 CARTOGRAPHY SUPERVISOR for new onset seizures. Observed to have several seizures in ER. -Admit to ICU -Patient loaded with keppra, IV -Ativan IV PRN for breakthrough seizures -CT head pending -Lab workup pending -Neuro consult in AM -DVT PPx -- SCDs only Status: Acute
[2017-04-27 23:01] LABS: BASO # 0.1 K/uL (0.0-0.2); BASO % 0.4 % (0.0-2.0); EOS # 0.6 K/uL (0.0-0.7); EOS % 3.6 % (0.0-4.0); LYMPH # 3.3 K/uL (1.0-4.3); LYMPH % 19.9 % (20.0-40.0); MEAN CELL VOLUME 76.9 fl (81.0-99.0); MEAN CORPUSCULAR HEMOGLOBIN 24.5 pg (27.0-31.0); MEAN CORPUSCULAR HGB CONC 31.9 g/dL (33.0-37.0); MEAN PLATELET VOLUME 8.3 fl (7.2-11.7); MONO # 0.9 K/uL (0.0-0.8); MONO % 5.3 % (0.0-10.0); NEUT # 11.8 K/uL (1.8-7.0); NEUT % 70.8 % (50.0-75.0); NRBC % 0.1 % (0.0-0.0); RED CELL DISTRIBUTION WIDTH 14.1 % (11.5-14.5); WHITE BLOOD COUNT 16.7 K/uL (4.8-10.8)
[2017-04-27 23:11] LABS: ALB/GLOB RATIO 1.4 (1.0-2.1); ALKALINE PHOSPHATASE 84 U/L (38-126); ALT/SGPT 33 U/L (9-52); AST/SGOT 26 U/L (14-36); BILIRUBIN,TOTAL 0.2 mg/dl (0.2-1.3); BLOOD UREA NITROGEN 16 mg/dl (7-17); CALCIUM 9.6 mg/dL (8.4-10.2); CARBON DIOXIDE 26 mmol/L (22-30); CHLORIDE 103 mmol/L (98-107); GFR AFRICAN-AMERICAN > 60; GLUCOSE,RANDOM 95 mg/dL (65-105); POTASSIUM 3.7 MMOL/L (3.6-5.0); SODIUM 141 mmol/l (132-148); TOTAL PROTEIN 7.3 G/DL (6.3-8.2)
[2017-04-27 23:13] LABS: PARTIAL THROMBOPLASTIN TIME 30.6 Seconds (25.6-37.1)
[2017-04-28 05:40] LABS: ALB/GLOB RATIO 1.4 (1.0-2.1); ALKALINE PHOSPHATASE 74 U/L (38-126); ALT/SGPT 25 U/L (9-52); AST/SGOT 18 U/L (14-36); BILIRUBIN,TOTAL 0.3 mg/dl (0.2-1.3); BLOOD UREA NITROGEN 20 mg/dl (7-17); CALCIUM 9.1 mg/dL (8.4-10.2); CARBON DIOXIDE 24 mmol/L (22-30); CHLORIDE 106 mmol/L (98-107); GFR AFRICAN-AMERICAN > 60; GLUCOSE,RANDOM 104 mg/dL (65-105); POTASSIUM 4.2 MMOL/L (3.6-5.0); SODIUM 140 mmol/l (132-148); TOTAL PROTEIN 6.5 G/DL (6.3-8.2)
--- NOTE | 2017-04-28 07:11 | CP.PCM.HP ---
History of Present Illness - History of Present Illness History of Present Illness: pt admitted for cp and new onset sz, no f/c, n/v/d. never had sz previously. has h/o depression, anxiety, agitation, cerebral palsy. had 2x witnessed seizures in er that she now reports had aura w/ floaters. st on monitor no distress Present on Admission - Present on Admission Any Indicators Present on Admission: No Review of Systems - Cardiovascular Cardiovascular: As Per HPI, Chest Pain - Neurological Neurological: As Per HPI, Convulsions Past Patient History - Infectious Disease Hx of Infectious Diseases: None - Past Medical History & Family History Past Medical History?: Yes - Past Social History Alcohol: None Drugs: Denies - CARDIAC Hx Atrial Fibrillation: No Hx Cardia Arrhythmia: No Hx Congestive Heart Failure: No Hx Hypercholesterolemia: No Hx Hypertension: No Hx Mitral Valve Prolapse: No Hx Pacemaker: No Hx Peripheral Edema: No - PULMONARY Hx Asthma: Yes Hx Bronchitis: No Hx Chronic Obstructive Pulmonary Disease (COPD): No Hx Emphysema: No Hx Pneumonia: No Hx Pulmonary Embolism: No Hx Sleep Apnea: No - NEUROLOGICAL Hx Alzheimer's Disease: No Hx Dementia: No Hx Migraine: Yes Hx Multiple Sclerosis: No Hx Parkinson's Disease: No Hx Seizures: No Hx Transient Ischemic Attacks (TIA): No - HEENT Hx HEENT Problems: No - RENAL Hx Chronic Kidney Disease: No - ENDOCRINE/METABOLIC Hx Hyperthyroidism: No Hx Hypothyroidism: No - HEMATOLOGICAL/ONCOLOGICAL Hx Anemia: No Hx Human Immunodeficiency Virus (HIV): No Hx Sickle Cell Disease: No - INTEGUMENTARY Hx Squamous Cell: Yes Other/Comment: liu from salt and ice challenge - MUSCULOSKELETAL/RHEUMATOLOGICAL Hx Arthritis: No Hx Fractures: Yes Hx Osteoporosis: Yes Hx Rheumatoid Arthritis: No - GASTROINTESTINAL Hx Crohn's Disease: No Hx Diverticulitis: No Hx Gall Bladder Disease: Yes Hx Gastritis: Yes Hx Pancreatitis: No - GENITOURINARY/GYNECOLOGICAL Hx Sexually Transmitted Disorders: No - PSYCHIATRIC Hx Anxiety: Yes Hx Bipolar Disorder: Yes Hx Depression: Yes Hx Schizophrenia: No - SURGICAL HISTORY Hx Appendectomy: No Hx Carotid Endarterectomy: No Hx Cholecystectomy: No Hx Coronary Artery Bypass Graft: No Hx Coronary Stent: No Hx Tonsillectomy: Yes - ANESTHESIA Hx Anesthesia: Yes Hx Anesthesia Reactions: No Hx Malignant Hyperthermia: No Meds Allergies/Adverse Reactions: Allergies Allergy/AdvReac Type Severity Reaction Status Date / Time apple Allergy URTICARIA Verified 04/27/17 10:57 PEACH Allergy Mild URTICARIA Uncoded 03/09/17 12:13 PLUM Allergy URTICARIA Uncoded 03/09/17 12:13 Physical Exam - Constitutional Appears: Well, Non-toxic, No Acute Distress - Head Exam Head Exam: ATRAUMATIC, NORMAL INSPECTION, NORMOCEPHALIC - Eye Exam Eye Exam: EOMI, Normal appearance, PERRL Pupil Exam: NORMAL ACCOMODATION, PERRL - ENT Exam ENT Exam: Mucous Membranes Moist, Normal Exam - Neck Exam Neck exam: Positive for: Normal Inspection - Respiratory Exam Respiratory Exam: Clear to Auscultation Bilateral, NORMAL BREATHING PATTERN - Cardiovascular Exam Cardiovascular Exam: REGULAR RHYTHM, RRR, +S1, +S2 - GI/Abdominal Exam GI & Abdominal Exam: Normal Bowel Sounds, Soft. absent: Tenderness - Extremities Exam Extremities exam: Positive for: full ROM, normal capillary refill, normal inspection, pedal pulses present - Back Exam Back exam: FULL ROM, NORMAL INSPECTION - Neurological Exam Neurological exam: Alert, CN II-XII Intact, Normal Gait, Oriented x3, Reflexes Normal - Psychiatric Exam Psychiatric exam: Normal Affect, Normal Mood - Skin Skin Exam: Dry, Intact, Normal Color, Warm Results - Vital Signs Recent Vital Signs: Last Vital Signs Temp 98.6 F 04/28/17 01:00 Pulse 80 04/28/17 04:00 Resp 18 04/28/17 04:00 BP 109/90 04/28/17 04:00 Pulse Ox 100 04/28/17 06:36 - Labs Result Diagrams: 04/28/17 06:00 04/28/17 04:20 Labs: Laboratory Results - last 24 hr 04/27/17 04/27/17 04/27/17 23:00 23:00 23:00 WBC 16.7 H RBC 5.07 Hgb 12.4 Hct 39.0 MCV 76.9 L MCH 24.5 L MCHC 31.9 L RDW 14.1 Plt Count 318 MPV 8.3 Neut % (Auto) 70.8 Lymph % (Auto) 19.9 L Pine % (Auto) 5.3 Eos % (Auto) 3.6 Baso % (Auto) 0.4 Neut # 11.8 H Lymph # 3.3 Pine # 0.9 H Eos # 0.6 Baso # 0.1 PT 13.2 H INR 1.3 H APTT 30.6 Sodium 141 Potassium 3.7 Chloride 103 Carbon Dioxide 26 Anion Gap 16 BUN 16 Creatinine 1.0 Est GFR ( Amer) > 60 Est GFR (Non-Af Amer) > 60 Random Glucose 95 Calcium 9.6 Total Bilirubin 0.2 AST 26 ALT 33 Alkaline Phosphatase 84 Troponin I Cancelled Total Protein 7.3 Albumin 4.3 Globulin 3.0 Albumin/Globulin Ratio 1.4 04/28/17 04:20 WBC RBC Hgb Hct MCV MCH MCHC RDW Plt Count MPV Neut % (Auto) Lymph % (Auto) Pine % (Auto) Eos % (Auto) Baso % (Auto) Neut # Lymph # Pine # Eos # Baso # PT INR APTT Sodium 140 Potassium 4.2 Chloride 106 Carbon Dioxide 24 Anion Gap 14 BUN 20 H Creatinine 0.9 Est GFR ( Amer) > 60 Est GFR (Non-Af Amer) > 60 Random Glucose 104 Calcium 9.1 Total Bilirubin 0.3 AST 18 ALT 25 Alkaline Phosphatase 74 Troponin I Total Protein 6.5 Albumin 3.8 Globulin 2.7 Albumin/Globulin Ratio 1.4 Assessment & Plan (1) New onset seizure Assessment and Plan: keprra, eeg, neuro icu care Status: Acute (2) Chest pain Assessment and Plan: trops (1st trop in [facility] chart) cardio Status: Acute (3) DVT prophylaxis Assessment and Plan: scd and ae hose ambulation Status: Acute (4) Major depressive disorder Assessment and Plan: 1:1 cont meds from psych will dc back to 3[facility] Status: Acute Decision To Admit - Pt Status Changed To: Hospital Disposition Of: Inpatient - Admit Certification Admit to Inpatient:: After my assessment, the patient will require hospitalization for at least two midnights. This is because of the severity of symptoms shown, intensity of services needed, and/or the medical risk in this patient being treated as an outpatient. - . Bed Request Type: Intensive Care Admitting Physician: Kate Cruz
[2017-04-28 07:22] LABS: BASO # 0.1 K/uL (0.0-0.2); BASO % 0.5 % (0.0-2.0); EOS # 0.5 K/uL (0.0-0.7); EOS % 4.1 % (0.0-4.0); HEMATOCRIT 37.6 % (34.0-47.0); LYMPH # 2.7 K/uL (1.0-4.3); LYMPH % 21.6 % (20.0-40.0); MEAN CELL VOLUME 77.2 fl (81.0-99.0); MEAN CORPUSCULAR HEMOGLOBIN 24.4 pg (27.0-31.0); MEAN CORPUSCULAR HGB CONC 31.6 g/dL (33.0-37.0); MEAN PLATELET VOLUME 8.1 fl (7.2-11.7); MONO # 0.7 K/uL (0.0-0.8); NEUT # 8.3 K/uL (1.8-7.0); NEUT % 67.8 % (50.0-75.0); RED CELL DISTRIBUTION WIDTH 14.1 % (11.5-14.5); WHITE BLOOD COUNT 12.3 K/uL (4.8-10.8)
[2017-04-28] MEDS ORDERED: Pneumococcal 23-Valent Vaccine IM ONE (09:00)
--- NOTE | 2017-04-28 10:07 | CON ---
CHIEF COMPLIANT: New-onset seizure. HISTORY OF PRESENT ILLNESS: A 21-year-old woman with history of depression, anxiety, bipolar disorder and asthma and history of cerebral palsy since , never had any seizure, was in psychiatry unit for treatment of depression and possible suicidal ideation. During her workup, she again had 2 episodes of what appeared to be seizure like activity, therefore, rapid response was called, and her seizure activity resolved quickly. Her vital signs are stable. Her blood sugars are over 100. The patient felt like weird sensation prior to seizure and denies any report of any seizure in the past. She suffered a head trauma in the past 6 to 7 months ago, but nothing acute. CAT scan of the head showed no acute intracranial abnormalities. She had no bowel and bladder incontinence. She has leukocyte esterase secondary to seizure. She was given stat one dose of lacosamide in the ER and Ativan and was stabilized. Currently, she is following simple commands. Has spastic right side from underlying cerebral palsy. PAST MEDICAL HISTORY: Cerebral palsy, depression, anxiety, bipolar disorder. SURGICAL HISTORY: Tonsil surgery. MEDICATIONS: Reviewed by nurse reconciliation sheet. REVIEW OF SYSTEMS: A 14-point review of system is negative except as in the HPI. FAMILY HISTORY: Noncontributory. SOCIAL HISTORY: No illicit drug use, smoking or ETOH abuse. ALLERGIES: ALLERGIC TO APPLES, PEACH, AND PLUMS. PHYSICAL EXAMINATION: VITAL SIGNS: Temperature afebrile, pulse rate 80, blood pressure 109/90, respiratory rate of 18, and oxygen saturation 97% by room air. GENERAL: The patient is seen up in bed, no acute distress. HEENT: Atraumatic and normocephalic. PERRLA. Extraocular muscles intact. NECK: Supple. No JVD. No adenopathy noted. LUNGS: Clear to auscultation. No adventitious sounds. HEART: S1 and S2.. Normal rate and rhythm. No murmurs, rubs, or gallops. ABDOMEN: Soft, nontender, and nondistended. Bowel sounds are present. EXTREMITIES: No clubbing. No cyanosis. Peripheral pulses 2+ bilaterally. NEUROLOGIC: The patient is alert and oriented to person, place, month, and year. Speech is fluent without any errors. Cranial nerves II through XII are intact. Motor exam: Moves all extremities equally, does show spasticity and atrophy of the right side secondary to cerebral palsy. DTRs are 2+ throughout. Coordination [id number] intact. Gait deferred for now. LABORATORY DATA: Sodium is 140, potassium 4.2, chloride 106, carbon dioxide 24, BUN of 20, and creatinine 0.9, random glucose of 104. ASSESSMENT AND PLAN: This is a 21-year-old woman with history of bipolar disorder, anxiety, depression, was recently in psychiatric unit for underlying depression. Had 2 episodes of generalized tonic clonic seizure and was stabilized with Ativan and one stat dose of 200 of IV lacosamide, which stabilized her. Transferred to ICU, again being monitored for underlying seizures. Given her history of cerebral palsy, she has increased risk of having developing seizure in her adulthood, which is likely provoked by underlying stress and depression. At this time, I recommended; 1. She will be on Keppra 500 mg p.o. b.i.d. for seizure prophylaxis. 2. We will recommend for psychiatry to address her psychiatric meds and avoid any atypical, and a psychiatrist can lower the seizure threshold. 3. Advised sleep hygiene. 4. We will get an EEG to assess any brainwave activity and continue current present medical management. Continue with seizure precautions. Thank you for this consult. Howie Guaman MD
--- NOTE | 2017-04-28 11:15 | CARD ---
APPROVED REPORT EKG Measurement Heart [id number] MA [id number] [id number] <Conclusion> Sinus rhythm with short MA Otherwise normal ECG
--- NOTE | 2017-04-28 11:23 | CARD ---
APPROVED REPORT EKG Measurement Heart [id number] CA [id number] <Conclusion> Poor data quality, interpretation may be adversely affected Sinus tachycardia Otherwise normal ECG
--- NOTE | 2017-04-28 12:17 | CP.CCUPN ---
<Chanel Haas - Last Filed: 04/28/17 15:17> CCU Subjective - Physician Review Subjective (Free Text): 04/28/17 7:30 am Patient seen and examined bedside. As per nurse patient had 1 episode of seizure last night and today early in the morning lasting seconds. Nurse describe seizure event lasting seconds, no tonic clonic movements, and is associated with head turning to the right side during the event. No urinary incontinence during seizure. Patient has hx/o cerebral palsy, awake, alert, oriented. Speech fluid. Good eye contact. Patient reports that chest pain has subsided since last night. Patient denies hx/o seizure before admission, denies suicidal ideation, auditory or visual hallucination. Denies fever, cough, SOB, dysuria, recent infection. Patient in 1:1 to prevent fall CCU Objective - Vital Signs / Intake & Output Vital Signs (Last 4 hours): Vital Signs Temp Pulse Resp BP Pulse Ox 04/28/17 12:00 98.8 F 78 17 113/44 L 97 04/28/17 10:00 90 24 130/66 100 Intake and Output (Last 8hrs): Intake & Output 04/27/17 04/28/17 04/28/17 22:59 06:59 14:59 Intake Total 240 240 Output Total 300 Balance -60 240 Weight 172 lb Intake: Oral 240 240 Output: Urine 300 Urine, Voided 300 Other: # Voids Urine, Voided 1 - Physical Exam Head: Positive for: Atraumatic, Normocephalic, Other (Right frontal head scar s/ p old head trauma ). Negative for: Tenderness Pupils: Positive for: PERRL Extroacular Muscles: Positive for: EOMI Conjunctiva: Positive for: Normal Mouth: Positive for: Moist Mucous Membranes Neck: Positive for: Normal Range of Motion Respiratory/Chest: Positive for: Clear to Auscultation, Other (Reproducible chest pain ). Negative for: Wheezes, Rales, Rhonchi Abdomen: Positive for: Normal Bowel Sounds. Negative for: Tenderness, Distention Upper Extremity: Positive for: Other (Right arm distal forearm internal side scar) Lower Extremity: Positive for: Normal Inspection. Negative for: CALF TENDERNESS , Swelling Neurological: Positive for: Speech Normal, Norm Deep Tendon Reflexes, Other ( Spasticity and atrophy of the right side secondary to cerebral palsy. ) Skin: Positive for: Warm Psychiatric: Positive for: Alert, Oriented x 3 - Medications Active Medications: Active Medications Generic Name Dose Route Start Last Admin Trade Name Freq PRN Reason Stop Dose Admin Acetaminophen 650 mg 04/28/17 10:45 04/28/17 10:57 Tylenol 325mg Tab PO 650 mg Q6 PRN Administration Headache Levetiracetam 500 mg 04/28/17 09:00 04/28/17 10:59 Keppra PO 500 mg BID PERLA Administration Lorazepam 2 mg 04/27/17 22:58 04/28/17 11:00 Ativan IVP 2 mg Q6H PRN Administration seizures - Patient Studies Lab Studies: Lab Studies 04/28/17 04/28/17 04/28/17 Range/Units 10:10 07:24 06:00 WBC 12.3 H (4.8-10.8) K/uL RBC 4.87 (3.80-5.20) Mil/uL Hgb 11.9 L (12.0-16.0) g/dL Hct 37.6 (34.0-47.0) % MCV 77.2 L (81.0-99.0) fl MCH 24.4 L (27.0-31.0) pg MCHC 31.6 L (33.0-37.0) g/dL RDW 14.1 (11.5-14.5) % Plt Count 301 (130-400) K/uL MPV 8.1 (7.2-11.7) fl Neut % (Auto) 67.8 (50.0-75.0) % Lymph % (Auto) 21.6 (20.0-40.0) % Eddy % (Auto) 6.0 (0.0-10.0) % Eos % (Auto) 4.1 H (0.0-4.0) % Baso % (Auto) 0.5 (0.0-2.0) % Neut # 8.3 H (1.8-7.0) K/uL Lymph # 2.7 (1.0-4.3) K/uL Eddy # 0.7 (0.0-0.8) K/uL Eos # 0.5 (0.0-0.7) K/uL Baso # 0.1 (0.0-0.2) K/uL PT (9.8-13.1) Seconds INR (0.9-1.2) APTT (25.6-37.1) Seconds Sodium (132-148) mmol/l Potassium (3.6-5.0) MMOL/L Chloride (98-107) mmol/L Carbon Dioxide (22-30) mmol/L Anion Gap (10-20) BUN (7-17) mg/dl Creatinine (0.7-1.2) mg/dL Est GFR ( Amer) Est GFR (Non-Af Amer) Random Glucose (65-105) mg/dL Calcium (8.4-10.2) mg/dL Total Bilirubin (0.2-1.3) mg/dl AST (14-36) U/L ALT (9-52) U/L Alkaline Phosphatase (38-126) U/L Troponin I < 0.0120 < 0.0120 Total Protein (6.3-8.2) G/DL Albumin (3.5-5.0) g/dL Globulin (2.2-3.9) gm/dL Albumin/Globulin Ratio (1.0-2.1) 04/28/17 04/27/17 04/27/17 Range/Units 04:20 23:00 23:00 WBC (4.8-10.8) K/uL RBC (3.80-5.20) Mil/uL Hgb (12.0-16.0) g/dL Hct (34.0-47.0) % MCV (81.0-99.0) fl MCH (27.0-31.0) pg MCHC (33.0-37.0) g/dL RDW (11.5-14.5) % Plt Count (130-400) K/uL MPV (7.2-11.7) fl Neut % (Auto) (50.0-75.0) % Lymph % (Auto) (20.0-40.0) % Eddy % (Auto) (0.0-10.0) % Eos % (Auto) (0.0-4.0) % Baso % (Auto) (0.0-2.0) % Neut # (1.8-7.0) K/uL Lymph # (1.0-4.3) K/uL Eddy # (0.0-0.8) K/uL Eos # (0.0-0.7) K/uL Baso # (0.0-0.2) K/uL PT 13.2 H (9.8-13.1) Seconds INR 1.3 H (0.9-1.2) APTT 30.6 (25.6-37.1) Seconds Sodium 140 141 (132-148) mmol/l Potassium 4.2 3.7 (3.6-5.0) MMOL/L Chloride 106 103 (98-107) mmol/L Carbon Dioxide 24 26 (22-30) mmol/L Anion Gap 14 16 (10-20) BUN 20 H 16 (7-17) mg/dl Creatinine 0.9 1.0 (0.7-1.2) mg/dL Est GFR ( Amer) > 60 > 60 Est GFR (Non-Af Amer) > 60 > 60 Random Glucose 104 95 (65-105) mg/dL Calcium 9.1 9.6 (8.4-10.2) mg/dL Total Bilirubin 0.3 0.2 (0.2-1.3) mg/dl AST 18 26 (14-36) U/L ALT 25 33 (9-52) U/L Alkaline Phosphatase 74 84 (38-126) U/L Troponin I Cancelled Total Protein 6.5 7.3 (6.3-8.2) G/DL Albumin 3.8 4.3 (3.5-5.0) g/dL Globulin 2.7 3.0 (2.2-3.9) gm/dL Albumin/Globulin Ratio 1.4 1.4 (1.0-2.1) 04/27/17 Range/Units 23:00 WBC 16.7 H (4.8-10.8) K/uL RBC 5.07 (3.80-5.20) Mil/uL Hgb 12.4 (12.0-16.0) g/dL Hct 39.0 (34.0-47.0) % MCV 76.9 L (81.0-99.0) fl MCH 24.5 L (27.0-31.0) pg MCHC 31.9 L (33.0-37.0) g/dL RDW 14.1 (11.5-14.5) % Plt Count 318 (130-400) K/uL MPV 8.3 (7.2-11.7) fl Neut % (Auto) 70.8 (50.0-75.0) % Lymph % (Auto) 19.9 L (20.0-40.0) % Eddy % (Auto) 5.3 (0.0-10.0) % Eos % (Auto) 3.6 (0.0-4.0) % Baso % (Auto) 0.4 (0.0-2.0) % Neut # 11.8 H (1.8-7.0) K/uL Lymph # 3.3 (1.0-4.3) K/uL Eddy # 0.9 H (0.0-0.8) K/uL Eos # 0.6 (0.0-0.7) K/uL Baso # 0.1 (0.0-0.2) K/uL PT (9.8-13.1) Seconds INR (0.9-1.2) APTT (25.6-37.1) Seconds Sodium (132-148) mmol/l Potassium (3.6-5.0) MMOL/L Chloride (98-107) mmol/L Carbon Dioxide (22-30) mmol/L Anion Gap (10-20) BUN (7-17) mg/dl Creatinine (0.7-1.2) mg/dL Est GFR ( Amer) Est GFR (Non-Af Amer) Random Glucose (65-105) mg/dL Calcium (8.4-10.2) mg/dL Total Bilirubin (0.2-1.3) mg/dl AST (14-36) U/L ALT (9-52) U/L Alkaline Phosphatase (38-126) U/L Troponin I Total Protein (6.3-8.2) G/DL Albumin (3.5-5.0) g/dL Globulin (2.2-3.9) gm/dL Albumin/Globulin Ratio (1.0-2.1) Laboratory Results - last 24 hr 04/27/17 04/27/17 04/27/17 23:00 23:00 23:00 WBC 16.7 H RBC 5.07 Hgb 12.4 Hct 39.0 MCV 76.9 L MCH 24.5 L MCHC 31.9 L RDW 14.1 Plt Count 318 MPV 8.3 Neut % (Auto) 70.8 Lymph % (Auto) 19.9 L Eddy % (Auto) 5.3 Eos % (Auto) 3.6 Baso % (Auto) 0.4 Neut # 11.8 H Lymph # 3.3 Eddy # 0.9 H Eos # 0.6 Baso # 0.1 PT 13.2 H INR 1.3 H APTT 30.6 Sodium 141 Potassium 3.7 Chloride 103 Carbon Dioxide 26 Anion Gap 16 BUN 16 Creatinine 1.0 Est GFR ( Amer) > 60 Est GFR (Non-Af Amer) > 60 Random Glucose 95 Calcium 9.6 Total Bilirubin 0.2 AST 26 ALT 33 Alkaline Phosphatase 84 Troponin I Cancelled Total Protein 7.3 Albumin 4.3 Globulin 3.0 Albumin/Globulin Ratio 1.4 04/28/17 04/28/17 04/28/17 04:20 06:00 07:24 WBC 12.3 H RBC 4.87 Hgb 11.9 L Hct 37.6 MCV 77.2 L MCH 24.4 L MCHC 31.6 L RDW 14.1 Plt Count 301 MPV 8.1 Neut % (Auto) 67.8 Lymph % (Auto) 21.6 Eddy % (Auto) 6.0 Eos % (Auto) 4.1 H Baso % (Auto) 0.5 Neut # 8.3 H Lymph # 2.7 Eddy # 0.7 Eos # 0.5 Baso # 0.1 PT INR APTT Sodium 140 Potassium 4.2 Chloride 106 Carbon Dioxide 24 Anion Gap 14 BUN 20 H Creatinine 0.9 Est GFR ( Amer) > 60 Est GFR (Non-Af Amer) > 60 Random Glucose 104 Calcium 9.1 Total Bilirubin 0.3 AST 18 ALT 25 Alkaline Phosphatase 74 Troponin I < 0.0120 Total Protein 6.5 Albumin 3.8 Globulin 2.7 Albumin/Globulin Ratio 1.4 04/28/17 10:10 WBC RBC Hgb Hct MCV MCH MCHC RDW Plt Count MPV Neut % (Auto) Lymph % (Auto) Eddy % (Auto) Eos % (Auto) Baso % (Auto) Neut # Lymph # Eddy # Eos # Baso # PT INR APTT Sodium Potassium Chloride Carbon Dioxide Anion Gap BUN Creatinine Est GFR ( Amer) Est GFR (Non-Af Amer) Random Glucose Calcium Total Bilirubin AST ALT Alkaline Phosphatase Troponin I < 0.0120 Total Protein Albumin Globulin Albumin/Globulin Ratio EKG/Cardiology Studies: Cardiology / EKG Studies 04/28/17 10:16 ELECTROCARDIOGRAM Routine Reason For Exam: ORDER Review of Systems - Cardiovascular Cardiovascular: UNREMARKABLE - Gastrointestinal Gastrointestinal: UNREMARKABLE - Genitourinary Genitourinary: UNREMARKABLE - Neurological Neurological: Abnormal Movements Critical Care Progress Note - Nutrition Nutrition: Nutrition Category Date Time Status Regular Diet [DIET] Diets 04/27/17 Breakfast Active Assessment/Plan - Assessment and Plan (Free Text) Plan: 21 yo ,f, Pmhx/o Asthma, Bipolar disorder, anxiety, moved from psych to ER 2/2 [employer] for new onset seizures. Observed to have several seizures in ER and patient admitted to ICU Assessment/Plan 1) New onset seizure -possible secondary to hx/o cerebral palsy or head trauma -EEG done today -CT Head:No acute intracranial hemorrhage or suspicious mass effect. -Neuro consult appreciated: c/w sang,seizure precaution and psyc consult to adjust psyc meds. -Seizure precaution -CBC, CMP, ionic Ca, Mg, PH, CPK, urine myoblobin -continue 1:1 (2) Chest pain -reproducible secondary to osteochondritis -trops x 3 neg -Cardiology consult appreciated -tylenol 650 mg PO PRN pain (3) Bipolar disorder -Sertraline hold -Oxacarbazepine hold -Lorazepan hold -Aripiprazol hold (4)DVT prophylaxis -SCD <Akhil Dixon V - Last Filed: 04/28/17 17:30> CCU Subjective - Physician Review Events Since Last Encounter (Free Text): 04/28/17 17:28 patient is seen and examined at bedside. case discussed with resident, and in am rounds. agree with plan of care as detailed in resident's note CCU Objective - Vital Signs / Intake & Output Vital Signs (Last 4 hours): Vital Signs Temp Pulse Resp BP Pulse Ox 04/28/17 16:00 98 F 87 25 H 111/60 04/28/17 14:00 64 20 119/75 99 Intake and Output (Last 8hrs): Intake & Output 04/28/17 04/28/17 04/28/17 06:59 14:59 22:59 Intake Total 240 480 240 Output Total 300 Balance -60 480 240 Intake: Oral 240 480 240 Output: Urine 300 Urine, Voided 300 Other: # Voids Urine, Voided 1 - Medications Active Medications: Active Medications Generic Name Dose Route Start Last Admin Trade Name Freq PRN Reason Stop Dose Admin Acetaminophen 650 mg 04/28/17 10:45 04/28/17 10:57 Tylenol 325mg Tab PO 650 mg Q6 PRN Administration Headache Levetiracetam 500 mg 04/28/17 09:00 04/28/17 10:59 Keppra PO 500 mg BID PERLA Administration Lorazepam 2 mg 04/27/17 22:58 04/28/17 11:00 Ativan IVP 2 mg Q6H PRN Administration seizures Sertraline HCl 25 mg 04/29/17 16:55 Zoloft PO 04/29/17 16:56 ONCE ONE Sertraline HCl 25 mg 04/29/17 09:00 Zoloft PO DAILY PERLA - Patient Studies Lab Studies: Lab Studies 04/28/17 04/28/17 04/28/17 Range/Units 11:52 11:18 10:10 WBC (4.8-10.8) K/uL RBC (3.80-5.20) Mil/uL Hgb (12.0-16.0) g/dL Hct (34.0-47.0) % MCV (81.0-99.0) fl MCH (27.0-31.0) pg MCHC (33.0-37.0) g/dL RDW (11.5-14.5) % Plt Count (130-400) K/uL MPV (7.2-11.7) fl Neut % (Auto) (50.0-75.0) % Lymph % (Auto) (20.0-40.0) % Eddy % (Auto) (0.0-10.0) % Eos % (Auto) (0.0-4.0) % Baso % (Auto) (0.0-2.0) % Neut # (1.8-7.0) K/uL Lymph # (1.0-4.3) K/uL Eddy # (0.0-0.8) K/uL Eos # (0.0-0.7) K/uL Baso # (0.0-0.2) K/uL PT (9.8-13.1) Seconds INR (0.9-1.2) APTT (25.6-37.1) Seconds Sodium (132-148) mmol/l Potassium (3.6-5.0) MMOL/L Chloride (98-107) mmol/L Carbon Dioxide (22-30) mmol/L Anion Gap (10-20) BUN (7-17) mg/dl Creatinine (0.7-1.2) mg/dL Est GFR ( Amer) Est GFR (Non-Af Amer) Random Glucose (65-105) mg/dL Calcium (8.4-10.2) mg/dL Phosphorus 4.0 (2.5-4.5) mg/dl Magnesium 1.7 (1.6-2.3) MG/DL Total Bilirubin (0.2-1.3) mg/dl AST (14-36) U/L ALT (9-52) U/L Alkaline Phosphatase (38-126) U/L Total Creatine Kinase 32 (30-135) U/L Troponin I < 0.0120 Total Protein (6.3-8.2) G/DL Albumin (3.5-5.0) g/dL Globulin (2.2-3.9) gm/dL Albumin/Globulin Ratio (1.0-2.1) Vitamin B12 539 (239-931) pg/mL Prolactin (3.0-18.9) ng/mL 04/28/17 04/28/17 04/28/17 Range/Units 07:24 06:00 04:20 WBC 12.3 H (4.8-10.8) K/uL RBC 4.87 (3.80-5.20) Mil/uL Hgb 11.9 L (12.0-16.0) g/dL Hct 37.6 (34.0-47.0) % MCV 77.2 L (81.0-99.0) fl MCH 24.4 L (27.0-31.0) pg MCHC 31.6 L (33.0-37.0) g/dL RDW 14.1 (11.5-14.5) % Plt Count 301 (130-400) K/uL MPV 8.1 (7.2-11.7) fl Neut % (Auto) 67.8 (50.0-75.0) % Lymph % (Auto) 21.6 (20.0-40.0) % Eddy % (Auto) 6.0 (0.0-10.0) % Eos % (Auto) 4.1 H (0.0-4.0) % Baso % (Auto) 0.5 (0.0-2.0) % Neut # 8.3 H (1.8-7.0) K/uL Lymph # 2.7 (1.0-4.3) K/uL Eddy # 0.7 (0.0-0.8) K/uL Eos # 0.5 (0.0-0.7) K/uL Baso # 0.1 (0.0-0.2) K/uL PT (9.8-13.1) Seconds INR (0.9-1.2) APTT (25.6-37.1) Seconds Sodium 140 (132-148) mmol/l Potassium 4.2 (3.6-5.0) MMOL/L Chloride 106 (98-107) mmol/L Carbon Dioxide 24 (22-30) mmol/L Anion Gap 14 (10-20) BUN 20 H (7-17) mg/dl Creatinine 0.9 (0.7-1.2) mg/dL Est GFR ( Amer) > 60 Est GFR (Non-Af Amer) > 60 Random Glucose 104 (65-105) mg/dL Calcium 9.1 (8.4-10.2) mg/dL Phosphorus (2.5-4.5) mg/dl Magnesium (1.6-2.3) MG/DL Total Bilirubin 0.3 (0.2-1.3) mg/dl AST 18 (14-36) U/L ALT 25 (9-52) U/L Alkaline Phosphatase 74 (38-126) U/L Total Creatine Kinase (30-135) U/L Troponin I < 0.0120 Total Protein 6.5 (6.3-8.2) G/DL Albumin 3.8 (3.5-5.0) g/dL Globulin 2.7 (2.2-3.9) gm/dL Albumin/Globulin Ratio 1.4 (1.0-2.1) Vitamin B12 (239-931) pg/mL Prolactin (3.0-18.9) ng/mL 04/27/17 04/27/17 04/27/17 Range/Units 23:00 23:00 23:00 WBC 16.7 H (4.8-10.8) K/uL RBC 5.07 (3.80-5.20) Mil/uL Hgb 12.4 (12.0-16.0) g/dL Hct 39.0 (34.0-47.0) % MCV 76.9 L (81.0-99.0) fl MCH 24.5 L (27.0-31.0) pg MCHC 31.9 L (33.0-37.0) g/dL RDW 14.1 (11.5-14.5) % Plt Count 318 (130-400) K/uL MPV 8.3 (7.2-11.7) fl Neut % (Auto) 70.8 (50.0-75.0) % Lymph % (Auto) 19.9 L (20.0-40.0) % Eddy % (Auto) 5.3 (0.0-10.0) % Eos % (Auto) 3.6 (0.0-4.0) % Baso % (Auto) 0.4 (0.0-2.0) % Neut # 11.8 H (1.8-7.0) K/uL Lymph # 3.3 (1.0-4.3) K/uL Eddy # 0.9 H (0.0-0.8) K/uL Eos # 0.6 (0.0-0.7) K/uL Baso # 0.1 (0.0-0.2) K/uL PT 13.2 H (9.8-13.1) Seconds INR 1.3 H (0.9-1.2) APTT 30.6 (25.6-37.1) Seconds Sodium 141 (132-148) mmol/l Potassium 3.7 (3.6-5.0) MMOL/L Chloride 103 (98-107) mmol/L Carbon Dioxide 26 (22-30) mmol/L Anion Gap 16 (10-20) BUN 16 (7-17) mg/dl Creatinine 1.0 (0.7-1.2) mg/dL Est GFR ( Amer) > 60 Est GFR (Non-Af Amer) > 60 Random Glucose 95 (65-105) mg/dL Calcium 9.6 (8.4-10.2) mg/dL Phosphorus (2.5-4.5) mg/dl Magnesium (1.6-2.3) MG/DL Total Bilirubin 0.2 (0.2-1.3) mg/dl AST 26 (14-36) U/L ALT 33 (9-52) U/L Alkaline Phosphatase 84 (38-126) U/L Total Creatine Kinase (30-135) U/L Troponin I Cancelled Total Protein 7.3 (6.3-8.2) G/DL Albumin 4.3 (3.5-5.0) g/dL Globulin 3.0 (2.2-3.9) gm/dL Albumin/Globulin Ratio 1.4 (1.0-2.1) Vitamin B12 (239-931) pg/mL Prolactin 17.1 (3.0-18.9) ng/mL Laboratory Results - last 24 hr 04/27/17 04/27/17 04/27/17 23:00 23:00 23:00 WBC 16.7 H RBC 5.07 Hgb 12.4 Hct 39.0 MCV 76.9 L MCH 24.5 L MCHC 31.9 L RDW 14.1 Plt Count 318 MPV 8.3 Neut % (Auto) 70.8 Lymph % (Auto) 19.9 L Eddy % (Auto) 5.3 Eos % (Auto) 3.6 Baso % (Auto) 0.4 Neut # 11.8 H Lymph # 3.3 Eddy # 0.9 H Eos # 0.6 Baso # 0.1 PT 13.2 H INR 1.3 H APTT 30.6 Sodium 141 Potassium 3.7 Chloride 103 Carbon Dioxide 26 Anion Gap 16 BUN 16 Creatinine 1.0 Est GFR ( Amer) > 60 Est GFR (Non-Af Amer) > 60 Random Glucose 95 Calcium 9.6 Phosphorus Magnesium Total Bilirubin 0.2 AST 26 ALT 33 Alkaline Phosphatase 84 Total Creatine Kinase Troponin I Cancelled Total Protein 7.3 Albumin 4.3 Globulin 3.0 Albumin/Globulin Ratio 1.4 Vitamin B12 Prolactin 17.1 04/28/17 04/28/17 04/28/17 04:20 06:00 07:24 WBC 12.3 H RBC 4.87 Hgb 11.9 L Hct 37.6 MCV 77.2 L MCH 24.4 L MCHC 31.6 L RDW 14.1 Plt Count 301 MPV 8.1 Neut % (Auto) 67.8 Lymph % (Auto) 21.6 Eddy % (Auto) 6.0 Eos % (Auto) 4.1 H Baso % (Auto) 0.5 Neut # 8.3 H Lymph # 2.7 Eddy # 0.7 Eos # 0.5 Baso # 0.1 PT INR APTT Sodium 140 Potassium 4.2 Chloride 106 Carbon Dioxide 24 Anion Gap 14 BUN 20 H Creatinine 0.9 Est GFR ( Amer) > 60 Est GFR (Non-Af Amer) > 60 Random Glucose 104 Calcium 9.1 Phosphorus Magnesium Total Bilirubin 0.3 AST 18 ALT 25 Alkaline Phosphatase 74 Total Creatine Kinase Troponin I < 0.0120 Total Protein 6.5 Albumin 3.8 Globulin 2.7 Albumin/Globulin Ratio 1.4 Vitamin B12 Prolactin 04/28/17 04/28/17 04/28/17 10:10 11:18 11:52 WBC RBC Hgb Hct MCV MCH MCHC RDW Plt Count MPV Neut % (Auto) Lymph % (Auto) Eddy % (Auto) Eos % (Auto) Baso % (Auto) Neut # Lymph # Eddy # Eos # Baso # PT INR APTT Sodium Potassium Chloride Carbon Dioxide Anion Gap BUN Creatinine Est GFR ( Amer) Est GFR (Non-Af Amer) Random Glucose Calcium Phosphorus 4.0 Magnesium 1.7 Total Bilirubin AST ALT Alkaline Phosphatase Total Creatine Kinase 32 Troponin I < 0.0120 Total Protein Albumin Globulin Albumin/Globulin Ratio Vitamin B12 539 Prolactin EKG/Cardiology Studies: Cardiology / EKG Studies 04/28/17 10:16 ELECTROCARDIOGRAM Routine Reason For Exam: MD ORDER Critical Care Progress Note - Nutrition Nutrition: Nutrition Category Date Time Status Regular Diet [DIET] Diets 04/27/17 Breakfast Active
[2017-04-28 12:20] LABS: MAGNESIUM 1.7 MG/DL (1.6-2.3)
--- NOTE | 2017-04-28 14:32 | CP.PCM.CON ---
History of Present Illness - History of Present Illness History of Present Illness: psychiatry consult ordered by: dr michael reason: came from [facility] cc: i had a seizure hpi 21 yo female with history of bipolar disorder s/p a suicide attempt by jumping in august. was in the [facility] and starting to refuse to take her abilify for the last two weeks. was to be admitted to psychiatry for her unstable mood/ irritability and to adjust medications. the patient had seizures on the 3 unit and was transfered to icu and seen by neurology and started on keppra. she is currently anxious about her seizures. she states "i'm done with trying suicide" she has been noted to be tearful and with some mood lability per rn. past medical: trauma from her suicide attempt with multiple surgeries, CP. seizure disorder social: lives with mother in [place]. attends [facility] past psych: hospitalized earlier this year. in [place]. was taking abilify. depakote makes pt vomit. poor response to seroquel. feels zoloft has helped her. substance use: denies trauma history: was bullied mse: somnolent, oriented x 3. mood is anxious. affect constricted. pt with logical thoughts, speech is appropriate. no delusions or hallucinations. denies suicidal or homicidal thoughts. fair i/j. assessment: bipolar disorder by history recommendation: would restart zoloft and monitor can return to psychiatry unit when medically cleared Past Patient History - Infectious Disease Hx of Infectious Diseases: None - Past Medical History & Family History Past Medical History?: Yes - Past Social History Alcohol: None Drugs: Denies - CARDIAC Hx Atrial Fibrillation: No Hx Cardia Arrhythmia: No Hx Congestive Heart Failure: No Hx Hypercholesterolemia: No Hx Hypertension: No Hx Mitral Valve Prolapse: No Hx Pacemaker: No Hx Peripheral Edema: No - PULMONARY Hx Asthma: Yes Hx Bronchitis: No Hx Chronic Obstructive Pulmonary Disease (COPD): No Hx Emphysema: No Hx Pneumonia: No Hx Pulmonary Embolism: No Hx Sleep Apnea: No - NEUROLOGICAL Hx Alzheimer's Disease: No Hx Dementia: No Hx Migraine: Yes Hx Multiple Sclerosis: No Hx Parkinson's Disease: No Hx Seizures: No Hx Transient Ischemic Attacks (TIA): No - HEENT Hx HEENT Problems: No - RENAL Hx Chronic Kidney Disease: No - ENDOCRINE/METABOLIC Hx Hyperthyroidism: No Hx Hypothyroidism: No - HEMATOLOGICAL/ONCOLOGICAL Hx Anemia: No Hx Human Immunodeficiency Virus (HIV): No Hx Sickle Cell Disease: No - INTEGUMENTARY Hx Squamous Cell: Yes Other/Comment: liu from salt and ice challenge - MUSCULOSKELETAL/RHEUMATOLOGICAL Hx Arthritis: No Hx Fractures: Yes Hx Osteoporosis: Yes Hx Rheumatoid Arthritis: No - GASTROINTESTINAL Hx Crohn's Disease: No Hx Diverticulitis: No Hx Gall Bladder Disease: Yes Hx Gastritis: Yes Hx Pancreatitis: No - GENITOURINARY/GYNECOLOGICAL Hx Sexually Transmitted Disorders: No - PSYCHIATRIC Hx Anxiety: Yes Hx Bipolar Disorder: Yes Hx Depression: Yes Hx Schizophrenia: No - SURGICAL HISTORY Hx Appendectomy: No Hx Carotid Endarterectomy: No Hx Cholecystectomy: No Hx Coronary Artery Bypass Graft: No Hx Coronary Stent: No Hx Tonsillectomy: Yes - ANESTHESIA Hx Anesthesia: Yes Hx Anesthesia Reactions: No Hx Malignant Hyperthermia: No Meds Allergies/Adverse Reactions: Allergies Allergy/AdvReac Type Severity Reaction Status Date / Time apple Allergy URTICARIA Verified 04/27/17 10:57 PEACH Allergy Mild URTICARIA Uncoded 03/09/17 12:13 PLUM Allergy URTICARIA Uncoded 03/09/17 12:13 - Medications Medications: Current Medications Acetaminophen (Tylenol 325mg Tab) 650 mg PO Q6 PRN PRN Reason: Headache Last Admin: 04/28/17 10:57 Dose: 650 mg Levetiracetam (Keppra) 500 mg PO BID PERLA Last Admin: 04/28/17 10:59 Dose: 500 mg Lorazepam (Ativan) 2 mg IVP Q6H PRN PRN Reason: seizures Last Admin: 04/28/17 11:00 Dose: 2 mg Results - Vital Signs Recent Vital Signs: Last Vital Signs Temp 98.8 F 04/28/17 12:00 Pulse 64 04/28/17 14:00 Resp 20 04/28/17 14:00 BP 119/75 04/28/17 14:00 Pulse Ox 99 04/28/17 14:00 - Labs Result Diagrams: 04/28/17 06:00 04/28/17 04:20 Labs: Laboratory Results - last 24 hr 04/27/17 04/27/17 04/27/17 23:00 23:00 23:00 WBC 16.7 H RBC 5.07 Hgb 12.4 Hct 39.0 MCV 76.9 L MCH 24.5 L MCHC 31.9 L RDW 14.1 Plt Count 318 MPV 8.3 Neut % (Auto) 70.8 Lymph % (Auto) 19.9 L Haakon % (Auto) 5.3 Eos % (Auto) 3.6 Baso % (Auto) 0.4 Neut # 11.8 H Lymph # 3.3 Haakon # 0.9 H Eos # 0.6 Baso # 0.1 PT 13.2 H INR 1.3 H APTT 30.6 Sodium 141 Potassium 3.7 Chloride 103 Carbon Dioxide 26 Anion Gap 16 BUN 16 Creatinine 1.0 Est GFR ( Amer) > 60 Est GFR (Non-Af Amer) > 60 Random Glucose 95 Calcium 9.6 Phosphorus Magnesium Total Bilirubin 0.2 AST 26 ALT 33 Alkaline Phosphatase 84 Total Creatine Kinase Troponin I Cancelled Total Protein 7.3 Albumin 4.3 Globulin 3.0 Albumin/Globulin Ratio 1.4 Vitamin B12 Prolactin 17.1 04/28/17 04/28/17 04/28/17 04:20 06:00 07:24 WBC 12.3 H RBC 4.87 Hgb 11.9 L Hct 37.6 MCV 77.2 L MCH 24.4 L MCHC 31.6 L RDW 14.1 Plt Count 301 MPV 8.1 Neut % (Auto) 67.8 Lymph % (Auto) 21.6 Haakon % (Auto) 6.0 Eos % (Auto) 4.1 H Baso % (Auto) 0.5 Neut # 8.3 H Lymph # 2.7 Haakon # 0.7 Eos # 0.5 Baso # 0.1 PT INR APTT Sodium 140 Potassium 4.2 Chloride 106 Carbon Dioxide 24 Anion Gap 14 BUN 20 H Creatinine 0.9 Est GFR ( Amer) > 60 Est GFR (Non-Af Amer) > 60 Random Glucose 104 Calcium 9.1 Phosphorus Magnesium Total Bilirubin 0.3 AST 18 ALT 25 Alkaline Phosphatase 74 Total Creatine Kinase Troponin I < 0.0120 Total Protein 6.5 Albumin 3.8 Globulin 2.7 Albumin/Globulin Ratio 1.4 Vitamin B12 Prolactin 04/28/17 04/28/17 04/28/17 10:10 11:18 11:52 WBC RBC Hgb Hct MCV MCH MCHC RDW Plt Count MPV Neut % (Auto) Lymph % (Auto) Haakon % (Auto) Eos % (Auto) Baso % (Auto) Neut # Lymph # Haakon # Eos # Baso # PT INR APTT Sodium Potassium Chloride Carbon Dioxide Anion Gap BUN Creatinine Est GFR ( Amer) Est GFR (Non-Af Amer) Random Glucose Calcium Phosphorus 4.0 Magnesium 1.7 Total Bilirubin AST ALT Alkaline Phosphatase Total Creatine Kinase 32 Troponin I < 0.0120 Total Protein Albumin Globulin Albumin/Globulin Ratio Vitamin B12 539 Prolactin
--- NOTE | 2017-04-28 19:00 | CP.PCM.CON ---
History of Present Illness - History of Present Illness History of Present Illness: I was asked to evaluate patient due to seizures. Patient is a 21 year old female with PMH bipolar dosrder and seizures who presnts with seizure. [employer] INSPECTOR was called. The patient had a seizure, but also complained of chest pain. Symptoms occurred at rest. The patient denies associated dyspnea. Review of Systems - Constitutional Constitutional: absent: As Per HPI, Anorexia, Chills, Daytime Sleepiness, Excessive Sweating, Fatigue, Fever, Frequent Falls, Headache, Increased Appetite , Lethargy, Malaise, Night Sweats, Snoring, Sleep Apnea, Weight Gain, Weight Loss, Weakness, Other - EENT Eyes: absent: As Per HPI, Blind Spots, Blurred Vision, Change in Vision, Decreased Night Vision, Diplopia, Discharge, Dry Eye, Exophthalmos, Floaters, Irritation, Itchy Eyes, Loss of Peripheral Vision, Pain, Photophobia, Requires Corrective Lenses, Sees Flashes, Spots in Vision, Tunnel Vision, Other Visual Disturbances, Loss of Vision, Other Ears: absent: As Per HPI, Decreased Hearing, Ear Discharge, Ear Pain, Tinnitus, Abnormal Hearing, Disequilibrium, Dizziness, Other Nose/Mouth/Throat: absent: As Per HPI, Epistaxis, Nasal Congestion, Nasal Discharge, Nasal Obstruction, Nasal Trauma, Nose Pain, Post Nasal Drip, Sinus Pain, Sinus Pressure, Bleeding Gums, Change in Voice, Dental Pain, Dry Mouth, Dysphagia, Halitosis, Hoarsness, Lip Swelling, Mouth Lesions, Mouth Pain, Odynophagia, Sore Throat, Throat Swelling, Tongue Swelling, Facial Pain, Neck Pain, Neck Mass, Other - Cardiovascular Cardiovascular: absent: As Per HPI, Acrocyanosis, Chest Pain, Chest Pain at Rest , Chest Pain with Activity, Claudication, Diaphoresis, Dyspnea, Dyspnea on Exertion, Edema, Irregular Heart Rhythm, Pain Radiating to Arm/Neck/Jaw, Leg Edema, Leg Ulcers, Lightheadedness, Orthopnea, Palpitations, Paroxysmal Nocturnal Dyspnea, Pedal Edema, Radiating Pain, Rapid Heart Rate, Slow Heart Rate, Syncope, Other - Respiratory Respiratory: absent: As Per HPI, Cough, Dyspnea, Hemoptysis, Dyspnea on Exertion , Wheezing, Snoring, Stridor, Pain on Inspiration, Chest Congestion, Excessive Mucous Production, Change in Mucous Color, Pain with Coughing, Other - Gastrointestinal Gastrointestinal: absent: As Per HPI, Abdominal Pain, Belching, Bloating, Change in Bowel Habits, Change in Stool Character, Coffee Ground Emesis, Constipation, Cramping, Diarrhea, Dyspepsia, Dysphagia, Early Satiety, Excessive Flatus, Fecal Incontinence, Heartburn, Hematemesis, Hematochezia, Loose Stools, Melena, Nausea, Odynophagia, Temesmus, Vomiting, Other - Genitourinary Genitourinary: absent: As Per HPI, Change in Urinary Stream, Difficulty Urinating, Dysuria, Flank Pain, Hematuria, Pyuria, Nocturia, Urinary Incontinence, Urinary Frequency, Urinary Hesitance, Urinary Urgency, Voiding Freq/Small Amts, Freq UTI, Hx Renal/Bladder Calculi, Hx /Renal Surgery, Bladder Distension, Other - Musculoskeletal Musculoskeletal: absent: As Per HPI, Abnormal Gait, Arthralgias, Atrophy, Back Pain, Deformity, Joint Swelling, Limited Range of Motion, Loss of Height, Muscle Cramps, Muscle Weakness, Myalgias, Neck Pain, Numbness, Radiating Pain into Limb, Stiffness, Tingling, Other - Integumentary Integumentary: absent: As Per HPI, Acne, Alopecia, Bleeding Lesions, Change in Hair, Change in Nails, Change in Pigmentation, Changing Lesions, Dry Skin, Erythema, Furuncle, Hirsutism, Lesions, New Lesions, Non-Healing Lesions, Photosensitivity, Pruritus, Rash, Skin Pain, Skin Ulcer, Sores, Striae, Swelling , Unusual Bruising, Wounds, Jaundice, Other - Neurological Neurological: Disequilibrium - Psychiatric Psychiatric: absent: As Per HPI, Abnormal Sleep Pattern, Anhedonia, Anxiety, Auditory Hallucinations, Behavioral Changes, Change in Appetite, Change in Libido, Confusion, Depression, Difficulty Concentrating, Hallucinations, Homicidal Ideation, Hopelessness, Irritability, Memory Loss, Mood Swings, Panic Attacks, Paranoia, Suicidal Ideation, Visual Hallucinations, Tactile Hallucinations, Other - Endocrine Endocrine: absent: As Per HPI, Change in Body Appearance, Change in Libido, Cold Intolorance, Deepening of Voice, Excessive Sweating, Fatigue, Flushing, Heat Intolorance, Increase in Ring/Shoe/Hat Size, Palpitations, Polydipsia, Polyphagia, Polyuria, Other - Hematologic/Lymphatic Hematologic: absent: As Per HPI, Easy Bleeding, Easy Bruising, Lymphadenopathy, Other Past Patient History - Infectious Disease Hx of Infectious Diseases: None - Past Medical History & Family History Past Medical History?: Yes - Past Social History Alcohol: None Drugs: Denies - CARDIAC Hx Atrial Fibrillation: No Hx Cardia Arrhythmia: No Hx Congestive Heart Failure: No Hx Hypercholesterolemia: No Hx Hypertension: No Hx Mitral Valve Prolapse: No Hx Pacemaker: No Hx Peripheral Edema: No - PULMONARY Hx Asthma: Yes Hx Bronchitis: No Hx Chronic Obstructive Pulmonary Disease (COPD): No Hx Emphysema: No Hx Pneumonia: No Hx Pulmonary Embolism: No Hx Sleep Apnea: No - NEUROLOGICAL Hx Alzheimer's Disease: No Hx Dementia: No Hx Migraine: Yes Hx Multiple Sclerosis: No Hx Parkinson's Disease: No Hx Seizures: No Hx Transient Ischemic Attacks (TIA): No - HEENT Hx HEENT Problems: No - RENAL Hx Chronic Kidney Disease: No - ENDOCRINE/METABOLIC Hx Hyperthyroidism: No Hx Hypothyroidism: No - HEMATOLOGICAL/ONCOLOGICAL Hx Anemia: No Hx Human Immunodeficiency Virus (HIV): No Hx Sickle Cell Disease: No - INTEGUMENTARY Hx Squamous Cell: Yes Other/Comment: liu from salt and ice challenge - MUSCULOSKELETAL/RHEUMATOLOGICAL Hx Arthritis: No Hx Fractures: Yes Hx Osteoporosis: Yes Hx Rheumatoid Arthritis: No - GASTROINTESTINAL Hx Crohn's Disease: No Hx Diverticulitis: No Hx Gall Bladder Disease: Yes Hx Gastritis: Yes Hx Pancreatitis: No - GENITOURINARY/GYNECOLOGICAL Hx Sexually Transmitted Disorders: No - PSYCHIATRIC Hx Anxiety: Yes Hx Bipolar Disorder: Yes Hx Depression: Yes Hx Schizophrenia: No - SURGICAL HISTORY Hx Appendectomy: No Hx Carotid Endarterectomy: No Hx Cholecystectomy: No Hx Coronary Artery Bypass Graft: No Hx Coronary Stent: No Hx Tonsillectomy: Yes - ANESTHESIA Hx Anesthesia: Yes Hx Anesthesia Reactions: No Hx Malignant Hyperthermia: No Meds Allergies/Adverse Reactions: Allergies Allergy/AdvReac Type Severity Reaction Status Date / Time apple Allergy URTICARIA Verified 04/27/17 10:57 PEACH Allergy Mild URTICARIA Uncoded 03/09/17 12:13 PLUM Allergy URTICARIA Uncoded 03/09/17 12:13 - Medications Medications: Current Medications Acetaminophen (Tylenol 325mg Tab) 650 mg PO Q6 PRN PRN Reason: Headache Last Admin: 04/28/17 10:57 Dose: 650 mg Levetiracetam (Keppra) 500 mg PO BID PERLA Last Admin: 04/28/17 18:39 Dose: 500 mg Lorazepam (Ativan) 2 mg IVP Q6H PRN PRN Reason: seizures Last Admin: 04/28/17 11:00 Dose: 2 mg Sertraline HCl (Zoloft) 25 mg PO DAILY PERLA Physical Exam - Constitutional Appears: Non-toxic - Head Exam Head Exam: NORMAL INSPECTION - Eye Exam Eye Exam: Normal appearance - ENT Exam ENT Exam: Mucous Membranes Moist - Neck Exam Neck exam: Positive for: Normal Inspection - Respiratory Exam Respiratory Exam: Decreased Breath Sounds - Cardiovascular Exam Cardiovascular Exam: REGULAR RHYTHM - GI/Abdominal Exam GI & Abdominal Exam: Normal Bowel Sounds - Rectal Exam Rectal Exam: Deferred - Extremities Exam Extremities exam: Positive for: pedal edema - Back Exam Back exam: NORMAL INSPECTION - Neurological Exam Neurological exam: Alert, Oriented x3 - Psychiatric Exam Psychiatric exam: Normal Affect - Skin Skin Exam: Normal Color Results - Vital Signs Recent Vital Signs: Last Vital Signs Temp 98 F 04/28/17 16:00 Pulse 61 04/28/17 18:00 Resp 19 04/28/17 18:00 BP 111/62 04/28/17 18:00 Pulse Ox 100 04/28/17 18:00 - Labs Result Diagrams: 04/28/17 06:00 04/28/17 04:20 Labs: Laboratory Results - last 24 hr 04/27/17 04/27/17 04/27/17 23:00 23:00 23:00 WBC 16.7 H RBC 5.07 Hgb 12.4 Hct 39.0 MCV 76.9 L MCH 24.5 L MCHC 31.9 L RDW 14.1 Plt Count 318 MPV 8.3 Neut % (Auto) 70.8 Lymph % (Auto) 19.9 L [place] % (Auto) 5.3 Eos % (Auto) 3.6 Baso % (Auto) 0.4 Neut # 11.8 H Lymph # 3.3 [place] # 0.9 H Eos # 0.6 Baso # 0.1 PT 13.2 H INR 1.3 H APTT 30.6 Sodium 141 Potassium 3.7 Chloride 103 Carbon Dioxide 26 Anion Gap 16 BUN 16 Creatinine 1.0 Est GFR ( Amer) > 60 Est GFR (Non-Af Amer) > 60 Random Glucose 95 Calcium 9.6 Phosphorus Magnesium Total Bilirubin 0.2 AST 26 ALT 33 Alkaline Phosphatase 84 Total Creatine Kinase Troponin I Cancelled Total Protein 7.3 Albumin 4.3 Globulin 3.0 Albumin/Globulin Ratio 1.4 Vitamin B12 Prolactin 17.1 04/28/17 04/28/17 04/28/17 04:20 06:00 07:24 WBC 12.3 H RBC 4.87 Hgb 11.9 L Hct 37.6 MCV 77.2 L MCH 24.4 L MCHC 31.6 L RDW 14.1 Plt Count 301 MPV 8.1 Neut % (Auto) 67.8 Lymph % (Auto) 21.6 [place] % (Auto) 6.0 Eos % (Auto) 4.1 H Baso % (Auto) 0.5 Neut # 8.3 H Lymph # 2.7 [place] # 0.7 Eos # 0.5 Baso # 0.1 PT INR APTT Sodium 140 Potassium 4.2 Chloride 106 Carbon Dioxide 24 Anion Gap 14 BUN 20 H Creatinine 0.9 Est GFR ( Amer) > 60 Est GFR (Non-Af Amer) > 60 Random Glucose 104 Calcium 9.1 Phosphorus Magnesium Total Bilirubin 0.3 AST 18 ALT 25 Alkaline Phosphatase 74 Total Creatine Kinase Troponin I < 0.0120 Total Protein 6.5 Albumin 3.8 Globulin 2.7 Albumin/Globulin Ratio 1.4 Vitamin B12 Prolactin 04/28/17 04/28/17 04/28/17 10:10 11:18 11:52 WBC RBC Hgb Hct MCV MCH MCHC RDW Plt Count MPV Neut % (Auto) Lymph % (Auto) [place] % (Auto) Eos % (Auto) Baso % (Auto) Neut # Lymph # [place] # Eos # Baso # PT INR APTT Sodium Potassium Chloride Carbon Dioxide Anion Gap BUN Creatinine Est GFR ( Amer) Est GFR (Non-Af Amer) Random Glucose Calcium Phosphorus 4.0 Magnesium 1.7 Total Bilirubin AST ALT Alkaline Phosphatase Total Creatine Kinase 32 Troponin I < 0.0120 Total Protein Albumin Globulin Albumin/Globulin Ratio Vitamin B12 539 Prolactin - EKG Data EKG Interpreted by: Myself EKG shows normal: Sinus rhythm Assessment & Plan (1) Chest pain Assessment and Plan: EKG reveals normal sinus rhythm without ischemia. Unlikely cardiac in origin. Patient to continue neuro and pyschiatric workup. Status: Acute
[2017-04-28 22:10] LABS: FOLATE 9.5 ng/mL
[2017-04-29 05:24] LABS: HEMATOCRIT 40.3 % (34.0-47.0); MEAN CELL VOLUME 77.2 fl (81.0-99.0); MEAN CORPUSCULAR HEMOGLOBIN 24.4 pg (27.0-31.0); MEAN CORPUSCULAR HGB CONC 31.7 g/dL (33.0-37.0); RED CELL DISTRIBUTION WIDTH 14.2 % (11.5-14.5); WHITE BLOOD COUNT 11.2 K/uL (4.8-10.8)
[2017-04-29 05:38] LABS: ALB/GLOB RATIO 1.4 (1.0-2.1); ALKALINE PHOSPHATASE 86 U/L (38-126); ALT/SGPT 30 U/L (9-52); AST/SGOT 21 U/L (14-36); BILIRUBIN,TOTAL 0.7 mg/dl (0.2-1.3); BLOOD UREA NITROGEN 15 mg/dl (7-17); CALCIUM 9.5 mg/dL (8.4-10.2); CARBON DIOXIDE 24 mmol/L (22-30); CHLORIDE 106 mmol/L (98-107); GFR AFRICAN-AMERICAN > 60; GLUCOSE,RANDOM 87 mg/dL (65-105); SODIUM 141 mmol/l (132-148); TOTAL PROTEIN 7.2 G/DL (6.3-8.2)
--- NOTE | 2017-04-29 08:00 | CP.PCM.PN ---
Subjective - Date & Time of Evaluation Date of Evaluation: 04/29/17 Time of Evaluation: 07:58 - Subjective Subjective: no distress/complaints. no f/c, n/v/d still w/ fatigue. no seizures. eeg completed. neuro consultand cardio consult appriciated. Objective - Vital Signs/Intake and Output Vital Signs (last 24 hours): Temp Pulse Resp BP Pulse Ox 98.5 F 71 20 109/69 99 04/29/17 07:48 04/29/17 07:48 04/29/17 07:48 04/29/17 07:48 04/29/17 07:48 Intake and Output: 04/29/17 04/29/17 06:59 18:59 Intake Total 80 Output Total 550 Balance -470 - Medications Medications: Current Medications Acetaminophen (Tylenol 325mg Tab) 650 mg PO Q6 PRN PRN Reason: Headache Last Admin: 04/28/17 10:57 Dose: 650 mg Levetiracetam (Keppra) 500 mg PO BID PERLA Last Admin: 04/28/17 18:39 Dose: 500 mg Lorazepam (Ativan) 2 mg IVP Q6H PRN PRN Reason: seizures Last Admin: 04/28/17 11:00 Dose: 2 mg Sertraline HCl (Zoloft) 25 mg PO DAILY PERLA - Labs Labs: 04/29/17 04:20 04/29/17 04:20 PT 13.2 Seconds (9.8-13.1) H 04/27/17 23:00 INR 1.3 (0.9-1.2) H 04/27/17 23:00 APTT 30.6 Seconds (25.6-37.1) 04/27/17 23:00 - Constitutional Appears: Well, Non-toxic, No Acute Distress - Head Exam Head Exam: ATRAUMATIC, NORMAL INSPECTION, NORMOCEPHALIC - Eye Exam Eye Exam: EOMI, Normal appearance, PERRL Pupil Exam: NORMAL ACCOMODATION, PERRL - ENT Exam ENT Exam: Mucous Membranes Moist, Normal Exam - Neck Exam Neck Exam: Full ROM, Normal Inspection. absent: Lymphadenopathy - Respiratory Exam Respiratory Exam: Clear to Ausculation Bilateral, NORMAL BREATHING PATTERN - Cardiovascular Exam Cardiovascular Exam: REGULAR RHYTHM, RRR, +S1, +S2. absent: Murmur - GI/Abdominal Exam GI & Abdominal Exam: Soft, Normal Bowel Sounds. absent: Tenderness - Extremities Exam Extremities Exam: Full ROM, Normal Capillary Refill, Normal Inspection. absent : Joint Swelling, Pedal Edema - Back Exam Back Exam: NORMAL INSPECTION - Neurological Exam Neurological Exam: Alert, Awake, CN II-XII Intact, Normal Gait, Oriented x3 - Psychiatric Exam Psychiatric exam: Normal Affect, Normal Mood - Skin Skin Exam: Dry, Intact, Normal Color, Warm Assessment and Plan (1) New onset seizure Assessment & Plan: keppra eeg neuro Status: Acute (2) Chest pain Assessment & Plan: cleared by cardio Status: Acute (3) DVT prophylaxis Assessment & Plan: scd and ae hose ambulation Status: Acute (4) Major depressive disorder Assessment & Plan: zoloft psych for 3np when cleared Status: Acute
--- NOTE | 2017-04-29 09:24 | CP.PCM.DIS ---
Provider - Provider Date of Admission: 04/27/17 21:22 Attending physician: Kate Cruz MD Primary care physician: Morris Rahman Time Spent in preparation of Discharge (in minutes): 15 Diagnosis - Discharge Diagnosis (1) New onset seizure Status: Acute (2) Chest pain Status: Acute (3) DVT prophylaxis Status: Acute (4) Major depressive disorder Status: Acute Hospital Course - Lab Results Lab Results: Most Recent Lab Values WBC 11.2 K/uL (4.8-10.8) H 04/29/17 04:20 RBC 5.22 Mil/uL (3.80-5.20) H 04/29/17 04:20 Hgb 12.8 g/dL (12.0-16.0) 04/29/17 04:20 Hct 40.3 % (34.0-47.0) 04/29/17 04:20 MCV 77.2 fl (81.0-99.0) L 04/29/17 04:20 MCH 24.4 pg (27.0-31.0) L 04/29/17 04:20 MCHC 31.7 g/dL (33.0-37.0) L 04/29/17 04:20 RDW 14.2 % (11.5-14.5) 04/29/17 04:20 Plt Count 314 K/uL (130-400) 04/29/17 04:20 MPV 8.1 fl (7.2-11.7) 04/28/17 06:00 Neut % (Auto) 67.8 % (50.0-75.0) 04/28/17 06:00 Lymph % (Auto) 21.6 % (20.0-40.0) 04/28/17 06:00 [place] % (Auto) 6.0 % (0.0-10.0) 04/28/17 06:00 Eos % (Auto) 4.1 % (0.0-4.0) H 04/28/17 06:00 Baso % (Auto) 0.5 % (0.0-2.0) 04/28/17 06:00 Neut # 8.3 K/uL (1.8-7.0) H 04/28/17 06:00 Lymph # 2.7 K/uL (1.0-4.3) 04/28/17 06:00 [place] # 0.7 K/uL (0.0-0.8) 04/28/17 06:00 Eos # 0.5 K/uL (0.0-0.7) 04/28/17 06:00 Baso # 0.1 K/uL (0.0-0.2) 04/28/17 06:00 PT 13.2 Seconds (9.8-13.1) H 04/27/17 23:00 INR 1.3 (0.9-1.2) H 04/27/17 23:00 APTT 30.6 Seconds (25.6-37.1) 04/27/17 23:00 Sodium 141 mmol/l (132-148) 04/29/17 04:20 Potassium 4.0 MMOL/L (3.6-5.0) 04/29/17 04:20 Chloride 106 mmol/L (98-107) 04/29/17 04:20 Carbon Dioxide 24 mmol/L (22-30) 04/29/17 04:20 Anion Gap 15 (10-20) 04/29/17 04:20 BUN 15 mg/dl (7-17) 04/29/17 04:20 Creatinine 0.7 mg/dL (0.7-1.2) 04/29/17 04:20 Est GFR ( Amer) > 60 04/29/17 04:20 Est GFR (Non-Af Amer) > 60 04/29/17 04:20 Random Glucose 87 mg/dL (65-105) 04/29/17 04:20 Calcium 9.5 mg/dL (8.4-10.2) 04/29/17 04:20 Phosphorus 4.0 mg/dl (2.5-4.5) 04/28/17 11:52 Magnesium 1.7 MG/DL (1.6-2.3) 04/28/17 11:52 Total Bilirubin 0.7 mg/dl (0.2-1.3) 04/29/17 04:20 AST 21 U/L (14-36) 04/29/17 04:20 ALT 30 U/L (9-52) 04/29/17 04:20 Alkaline Phosphatase 86 U/L (38-126) 04/29/17 04:20 Total Creatine Kinase 32 U/L (30-135) 04/28/17 11:18 Troponin I < 0.0120 ng/mL (0.00-0.120) 04/29/17 04:20 Total Protein 7.2 G/DL (6.3-8.2) 04/29/17 04:20 Albumin 4.1 g/dL (3.5-5.0) 04/29/17 04:20 Globulin 3.0 gm/dL (2.2-3.9) 04/29/17 04:20 Albumin/Globulin Ratio 1.4 (1.0-2.1) 04/29/17 04:20 Vitamin B12 539 pg/mL (239-931) 04/28/17 11:52 Folate 9.5 ng/mL 04/28/17 11:52 Prolactin 17.1 ng/mL (3.0-18.9) 04/27/17 23:00 RPR Nonreactive (NONREACTIVE) 04/28/17 11:52 Discharge Exam - Head Exam Head Exam: ATRAUMATIC, NORMAL INSPECTION, NORMOCEPHALIC Discharge Plan - Follow Up Plan Condition: GUARDED Disposition: HOME/ ROUTINE Additional Instructions: pt cleared by neuro for psych admission, will follow on 3np final dx-seizure d/o, MDD< cerebral palsy Referrals: Morris Rahman MD [Primary Care Provider] -
--- NOTE | 2017-04-29 14:20 | CP.PCM.PN ---
Subjective - Date & Time of Evaluation Date of Evaluation: 04/29/17 Time of Evaluation: 14:00 - Subjective Subjective: psychiatry follow up met with pt and discussed with RN. reviewed chart cc: "i will sign the 48 hour notice" s: pt with labile mood. making threats to harm self by hitting head and threats to kill self if she is transferred to [facility]. pt is now denying that she made those statements. she is refusing to take abilify. mse: alert, oriented x 3. mood is labile. affect is constricted. pt denies si/ hi. denies a/v hallucinations. pt has made suicidal threats. she has made threats to hit herself in the head to cause injury. she is evasive and minimizing the serious nature of these threats and denying needing treatment. she has poor i/j. assessment: bipolar disorder, history of serious suicide attempt and now making threats and has been refusing treatment in the community. recommendation: pt is not accepting transfer back to [facility] and is actively threatening to harm self would keep 1:1 supervision for prevention of suicide and self injury screen for involuntary hospitalization as she is refusing both inpt treatment and appropriate medications and is posing a risk to self. she has history of serious suicide attempt. Objective - Vital Signs/Intake and Output Vital Signs (last 24 hours): Temp Pulse Resp BP Pulse Ox 98.3 F 93 H 14 117/66 96 04/29/17 12:00 04/29/17 12:00 04/29/17 12:00 04/29/17 12:00 04/29/17 12:00 Intake and Output: 04/29/17 04/29/17 06:59 18:59 Intake Total 80 900 Output Total 550 Balance -470 900 - Medications Medications: Current Medications Acetaminophen (Tylenol 325mg Tab) 650 mg PO Q6 PRN PRN Reason: Headache Last Admin: 04/28/17 10:57 Dose: 650 mg Levetiracetam (Keppra) 500 mg PO BID PERLA Last Admin: 04/29/17 08:23 Dose: 500 mg Lorazepam (Ativan) 2 mg IVP Q6H PRN PRN Reason: seizures Last Admin: 04/28/17 11:00 Dose: 2 mg Sertraline HCl (Zoloft) 25 mg PO DAILY PERLA Last Admin: 04/29/17 08:23 Dose: 25 mg - Labs Labs: 04/29/17 04:20 04/29/17 04:20 PT 13.2 Seconds (9.8-13.1) H 04/27/17 23:00 INR 1.3 (0.9-1.2) H 04/27/17 23:00 APTT 30.6 Seconds (25.6-37.1) 04/27/17 23:00
--- NOTE | 2017-04-29 16:43 | EEG ---
DATE: 04/29/2017 CONDITION OF THE RECORDING: This is a drowsy EEG. DIAGNOSIS: Seizure. MEDICATION: Reviewed by nurse reconciliation sheet. INTERPRETATION: This is 16-channel international recording. The background activity was composed of 8 cycles per second. There was small amount of beta activity of 16-20 cycles per second seen in this tracing. There was small amount of theta activity of 5-7 cycles per second seen in this tracing. Drowsiness was characterized by mixed beta and theta activities. Sleep was characterized by vertex transients, sleep spindles, and bilateral slowing. Photic stimulation showed no change in the tracing. No paroxysmal activity noted in this recording. CONCLUSION: This is a normal drowsy EEG. No evidence of any epileptiform activity. Please clinically correlate. Howie Guaman MD [facility] # [id number]
[2017-04-30 03:25] LABS: RBC URINE 3 /hpf (0-3); URINE BILIRUBIN NEGATIVE (NEGATIVE); URINE BLOOD LARGE (NEGATIVE); URINE COLOR YELLOW (YELLOW); URINE GLUCOSE (UA) NEG (Normal); URINE KETONE NEGATIVE (NEGATIVE); URINE LEUKOCYTE ESTERASE NEG Leu/uL (Negative); URINE PROTEIN 30 mg/dL (NEGATIVE); URINE UROBILINOGEN 0.2-1.0 mg/dL (0.2-1.0); WBC URINE 2 /hpf (0-5)
--- NOTE | 2017-04-30 07:31 | CP.PCM.PN ---
Subjective - Date & Time of Evaluation Date of Evaluation: 04/30/17 Time of Evaluation: 07:30 - Subjective Subjective: no distress/complaints. no f/c, n/v/d. pending [facility] [place], 1:1 at bedside, still w/ periods of agitation. neuro cleared. had 2x "seizures" overnight Objective - Vital Signs/Intake and Output Vital Signs (last 24 hours): Temp Pulse Resp BP Pulse Ox 98.3 F 88 19 101/68 96 04/30/17 00:53 04/30/17 00:53 04/30/17 00:53 04/30/17 00:53 04/30/17 00:53 - Medications Medications: Current Medications Acetaminophen (Tylenol 325mg Tab) 650 mg PO Q6 PRN PRN Reason: Headache Last Admin: 04/29/17 18:57 Dose: 650 mg Levetiracetam (Keppra) 500 mg PO BID PERLA Last Admin: 04/29/17 16:03 Dose: 500 mg Lorazepam (Ativan) 2 mg IVP Q6H PRN PRN Reason: seizures Last Admin: 04/28/17 11:00 Dose: 2 mg Sertraline HCl (Zoloft) 25 mg PO DAILY PERLA Last Admin: 04/29/17 08:23 Dose: 25 mg - Labs Labs: 04/29/17 04:20 04/29/17 04:20 PT 13.2 Seconds (9.8-13.1) H 04/27/17 23:00 INR 1.3 (0.9-1.2) H 04/27/17 23:00 APTT 30.6 Seconds (25.6-37.1) 04/27/17 23:00 - Constitutional Appears: Well, Non-toxic, No Acute Distress - Head Exam Head Exam: ATRAUMATIC, NORMAL INSPECTION, NORMOCEPHALIC - Eye Exam Eye Exam: EOMI, Normal appearance, PERRL Pupil Exam: NORMAL ACCOMODATION, PERRL - ENT Exam ENT Exam: Mucous Membranes Moist, Normal Exam - Neck Exam Neck Exam: Full ROM, Normal Inspection. absent: Lymphadenopathy - Respiratory Exam Respiratory Exam: Clear to Ausculation Bilateral, NORMAL BREATHING PATTERN - Cardiovascular Exam Cardiovascular Exam: REGULAR RHYTHM, RRR, +S1, +S2. absent: Murmur - GI/Abdominal Exam GI & Abdominal Exam: Soft, Normal Bowel Sounds. absent: Tenderness - Extremities Exam Extremities Exam: Full ROM, Normal Capillary Refill, Normal Inspection. absent : Joint Swelling, Pedal Edema - Back Exam Back Exam: NORMAL INSPECTION - Neurological Exam Neurological Exam: Alert, Awake, CN II-XII Intact, Normal Gait, Oriented x3 - Psychiatric Exam Psychiatric exam: Normal Affect, Normal Mood - Skin Skin Exam: Dry, Intact, Normal Color, Warm Assessment and Plan (1) New onset seizure Status: Acute (2) Chest pain Status: Acute (3) DVT prophylaxis Status: Acute (4) Major depressive disorder Status: Acute - Assessment and Plan (Free Text) Assessment: (1) New onset seizure Assessment & Plan: keppra eeg neuro cleared for psych admission Status: Acute (2) Chest pain Assessment & Plan: cleared by cardio Status: Acute (3) DVT prophylaxis Assessment & Plan: scd and ae hose ambulation Status: Acute (4) Major depressive disorder Assessment & Plan: zoloft psych for [facility] invol, 1:1 Status: Acute
--- NOTE | 2017-04-30 13:46 | PCM.PYCHPN ---
Psychiatric Progress Note - Psychiatric Progress Note Patient seen today, length of contact: discusse with rn, met with pt's mother Patient Chief Complaint: i want to go home Problems Identified/Issues Discussed: pt wants to leave. she has been acting out behaviorally, throwing objects, making verbal threats. she is accepted at [facility] and waiting for a bed to become available. she is focused on wanting to leave. currently calm and with mother and exhibiting some regressed/chidlike behaviors. she is agreeable to try risperdal to help with her anger problems Medical Problems: seizure disorder, cp Medication Change: Yes Medical Record Reviewed: Yes Mental Status Examination - Cognitive Function Orientation: Person, Place, Situation, Time Memory: Intact Attention: WNL Concentration: Poor Association: WNL Fund of Knowledge: WNL Decription of patient's judgement and insights: poor i/j - Mood Mood: Depressed, Anxious, Other (angry) - Affect Affect: Other (labile) - Speech Speech: Appropriate - Formal Thought Process Formal Thought Process: No Impairment - Suicidal Ideation Suicidal Ideation: Yes Plan: recent suicidal threats - Homicidal Ideation Homicidal Ideation: Yes Plan: threatened to "blow up" things Goal/Treatment Plan - Goal/Treatment Plan Need for Continued Stay: Remain at risks for inpatient hospitalization, Severe functional impairment Progress Toward Problem(s) and Goals/Treatment Plan: bipolar disorder pt is grossly impaired by her mood symptoms and with poor impulse control pt has agreed to start risperdal for mood stabilization will add prn meds for agitation maintain 1:1 supervision for safety Estimated Date of D/C: 05/03/17
[2017-04-30] MEDS: Risperidone M tab 0.5MG PO SCH (16:28)
[2017-04-30] MEDS ORDERED: Iohexol 240 (50 ml) PO ONE (17:44)
[2017-04-30 17:50] LABS: MEAN CELL VOLUME 77.1 fl (81.0-99.0); MEAN CORPUSCULAR HEMOGLOBIN 24.5 pg (27.0-31.0); MEAN CORPUSCULAR HGB CONC 31.8 g/dL (33.0-37.0); RED CELL DISTRIBUTION WIDTH 13.7 % (11.5-14.5); WHITE BLOOD COUNT 11.5 K/uL (4.8-10.8)
[2017-04-30 18:02] LABS: BLOOD UREA NITROGEN 16 mg/dl (7-17); GFR AFRICAN-AMERICAN > 60; GLUCOSE,RANDOM 94 mg/dL (65-105); POTASSIUM 4.3 MMOL/L (3.6-5.0); SODIUM 140 mmol/l (132-148)
[2017-04-30 18:03] LABS: ALB/GLOB RATIO 1.4 (1.0-2.1); ALKALINE PHOSPHATASE 85 U/L (38-126); ALT/SGPT 26 U/L (9-52); AST/SGOT 25 U/L (14-36); BILIRUBIN,TOTAL 0.5 mg/dl (0.2-1.3); CALCIUM 9.4 mg/dL (8.4-10.2); CARBON DIOXIDE 23 mmol/L (22-30); CHLORIDE 106 mmol/L (98-107); TOTAL PROTEIN 7.5 G/DL (6.3-8.2)
[2017-05-01] MEDS ORDERED: Iohexol 240 (50 ml) PO ONE (07:24)
--- NOTE | 2017-05-01 07:32 | CP.PCM.PN ---
Subjective - Date & Time of Evaluation Date of Evaluation: 05/01/17 Time of Evaluation: 07:31 - Subjective Subjective: pt w/ rlq pain, refused ct last night as she refused to drink contrast. got toradol w/ relief. wbc wnl. [facility] [place] bed, still on 1:1 initially agreed to drink contrast then refused. will do ct w/ iv contrast Objective - Vital Signs/Intake and Output Vital Signs (last 24 hours): Temp Pulse Resp BP Pulse Ox 98.2 F 67 20 92/53 L 97 04/30/17 16:58 04/30/17 16:58 04/30/17 16:58 04/30/17 16:58 04/30/17 16:58 - Medications Medications: Current Medications Acetaminophen (Tylenol 325mg Tab) 650 mg PO Q6 PRN PRN Reason: Headache Last Admin: 04/29/17 18:57 Dose: 650 mg Haloperidol (Haldol) 5 mg PO Q6 PRN PRN Reason: Agitation Haloperidol Lactate (Haldol) 5 mg IM Q6 PRN PRN Reason: Agitation and refusing prn Ketorolac Tromethamine (Toradol) 30 mg IVP Q6 PRN PRN Reason: Pain, severe (8-10) Last Admin: 05/01/17 02:27 Dose: 30 mg Levetiracetam (Keppra) 500 mg PO BID [facility] Last Admin: 04/30/17 16:28 Dose: 500 mg Lorazepam (Ativan) 2 mg IVP Q6H PRN PRN Reason: seizures Last Admin: 04/28/17 11:00 Dose: 2 mg Lorazepam (Ativan) 2 mg PO Q6 PRN PRN Reason: Agitation Risperidone (Risperdal M-Tab) 0.5 mg PO DAILY [facility] Last Admin: 04/30/17 16:28 Dose: 0.5 mg Sertraline HCl (Zoloft) 25 mg PO DAILY [facility] Last Admin: 04/30/17 08:19 Dose: 25 mg - Labs Labs: 04/30/17 17:44 04/30/17 17:44 PT 13.2 Seconds (9.8-13.1) H 04/27/17 23:00 INR 1.3 (0.9-1.2) H 04/27/17 23:00 APTT 30.6 Seconds (25.6-37.1) 04/27/17 23:00 - Constitutional Appears: Well, Non-toxic, No Acute Distress - Head Exam Head Exam: ATRAUMATIC, NORMAL INSPECTION, NORMOCEPHALIC - Eye Exam Eye Exam: EOMI, Normal appearance, PERRL Pupil Exam: NORMAL ACCOMODATION, PERRL - ENT Exam ENT Exam: Mucous Membranes Moist, Normal Exam - Neck Exam Neck Exam: Full ROM, Normal Inspection. absent: Lymphadenopathy - Respiratory Exam Respiratory Exam: Clear to Ausculation Bilateral, NORMAL BREATHING PATTERN - Cardiovascular Exam Cardiovascular Exam: REGULAR RHYTHM, RRR, +S1, +S2. absent: Murmur - GI/Abdominal Exam GI & Abdominal Exam: Soft, Tenderness, Normal Bowel Sounds Additional comments: rlq tenderness - Extremities Exam Extremities Exam: Full ROM, Normal Capillary Refill, Normal Inspection. absent : Joint Swelling, Pedal Edema - Back Exam Back Exam: NORMAL INSPECTION - Neurological Exam Neurological Exam: Alert, Awake, CN II-XII Intact, Normal Gait, Oriented x3 - Psychiatric Exam Psychiatric exam: Normal Affect, Normal Mood - Skin Skin Exam: Dry, Intact, Normal Color, Warm Assessment and Plan (1) New onset seizure Status: Acute (2) Chest pain Status: Acute (3) DVT prophylaxis Status: Acute (4) Major depressive disorder Status: Acute - Assessment and Plan (Free Text) Assessment: (1) New onset seizure Assessment & Plan: keppra eeg neuro Status: Acute (2) Chest pain Assessment & Plan: cleared by cardio Status: Acute (3) DVT prophylaxis Assessment & Plan: scd and ae hose ambulation Status: Acute (4) Major depressive disorder Assessment & Plan: zoloft psych for 3np when cleared Status: Acute 5-rlq tenderness, cbc,cmp wnl, ct abd/pelvis w/ iv contrast completed pendignresults, pt refused to drink oral contrast 6-urine c/s w/ gram neg rods-will start rocephin
[2017-05-01] MEDS ORDERED: Iohexol 300 100 ML IJ ONE (09:16)
[2017-05-01] MEDS ORDERED: Sodium Chloride 0.9% 50 ML IV ONE (09:16)
[2017-05-01] MEDS: Risperidone M tab 0.5MG PO SCH (09:59)
--- NOTE | 2017-05-01 11:24 | CT ---
PROCEDURE: CT abdomen and pelvis dated in 04/2017 HISTORY: Right lower quadrant pain. COMPARISON: Comparison made with CT scan of the abdomen and pelvis 04/01/2016. TECHNIQUE: Contiguous axial images of the abdomen and pelvis performed following intravenous injection of approximately 95 cc Omnipaque 300 contrast material. Oral contrast material not administered however there is opacification of the cecum and ascending colon. This could represent oral contrast material related to an outside imaging study. Clinic correlation recommended. Radiation dose: Total exam DLP = 793.7 mGy-cm. This CT exam was performed using one or more of the following dose reduction techniques: Automated exposure control, adjustment of the mA and/or kV according to patient size, and/or use of iterative reconstruction technique. FINDINGS: LOWER THORAX: Minor scattered scarring changes or chronic atelectasis both lung bases. . No focal consolidation effusion or basilar pneumothorax. Heart size within range of normal. No significant pericardial effusion. Tiny hiatal hernia. LIVER: Liver is upper limits of normal measuring nearly 18 cm in CC dimension. Minor fatty hepatic infiltration. No obvious hepatic mass collection or calcification. Portal and splenic veins are opacified. GALLBLADDER AND BILE DUCTS: Gallbladder is physiologically distended. No evidence of intraluminal gallbladder calculi. No significant wall thickening or pericholecystic fluid collections PANCREAS: . Pancreas appears grossly unremarkable without mass collection calcification. No significant pancreatic ductal dilatation. SPLEEN: Spleen is normal size measuring approximately 11 cm in AP dimension. No splenic mass collection or calcification. ADRENALS: There are no adrenal lesions seen. KIDNEYS AND URETERS: Kidneys demonstrate symmetric nephrograms. No evidence of nephrolithiasis or hydronephrosis. BLADDER: The urinary bladder appears incompletely distended which may account for slight thick-walled appearance. Possibility of a cystitis not excluded. REPRODUCTIVE: Uterus and adnexal structures appear unremarkable as visualized. APPENDIX: Appendix is not definitively identified. BOWEL: Evaluation of the bowel is limited due to incomplete opacification. . Stomach is incompletely distended which presumably accounts for thick-walled appearance. Rule out gastritis. There appears to be mild wall thickening of the distal ileum nonspecific. Rule out nonspecific enteritis. No evidence of acute mechanical small bowel obstruction with oral contrast material seen in cecum and ascending colon. . Moderate amount of stool is present within the right colon and transverse colon suggesting mild fecal retention/constipation. Previously noted of mild wall thickening of the rectosigmoid not presenting non specific colitis on prior study improved on prior exam. PERITONEUM: Unremarkable. No fluid collection. No free air. LYMPH NODES: There are multiple prominent lymph nodes again seen scattered throughout the mesenteries as well as retroperitoneum nonspecific. ; VASCULATURE: No evidence of abdominal aortic or iliac artery aneurysms. BONES: Few scattered chronic appearing Schmorl's nodes seen in the lower thoracic spine. OTHER FINDINGS: None. IMPRESSION: Findings consistent with a nonspecific inflammatory process of the distal ileum; rule out pictures inflammatory enteritis. Previously noted wall thickening -colitis involving the rectosigmoid on prior CT scan improved. Mild fatty hepatic infiltration. Multiple prominent mesenteric lymph nodes nonspecific. Note these findings were discussed with nurse practitioner Kushal at approximately 11:21 a.m. with written down and read back verification
--- NOTE | 2017-05-01 12:18 | CP.PCM.CON ---
<Nicolás Lopez - Last Filed: 05/01/17 12:23> History of Present Illness - History of Present Illness History of Present Illness: General Surgery Consult Note for Dr. Thurston CC: Abdominal pain 21 F with PMH of cerebral palsy, depression/anxiety, bipolar disorder, s/p TBI, seizures presents with abdominal pain. Patient states pain started last night. She reports sudden onset. Patient has had similar abdominal pain in the past and was found to have mesenteric adenitis. She rates pain 1/10 currently, but this morning and yesterday it was 10/10. She describes pain as intermittent, sharp and stabbing located in RLQ with occasional radiation to her back. Toradol alleviates the pain while nothing specifically exacerbates it. She is tolerating diet and having BMs. Denies fever/chills, cp, sob, n/v/d, constipation, hemetemesis, hematochezia, incontinence. PMH: cerebral palsy, depression/anxiety, bipolar disorder, s/p TBI, seizures, gastritis, asthma, migraines Meds: As per EMR Allergy: NKDA PSH: tonsilectomy, ORIF of ankle wrist, elbow, Craniotomy with plate Hosp: several this year for psych isssues FH: unknown Social: lives with her family, denies tobacco/etoh/illicit drug use Review of Systems - Review of Systems All systems: reviewed and no additional remarkable complaints except (abdominal pain) Past Patient History - Infectious Disease Hx of Infectious Diseases: None - Past Medical History & Family History Past Medical History?: Yes - Past Social History Alcohol: None Drugs: Denies - CARDIAC Hx Atrial Fibrillation: No Hx Cardia Arrhythmia: No Hx Congestive Heart Failure: No Hx Hypercholesterolemia: No Hx Hypertension: No Hx Mitral Valve Prolapse: No Hx Pacemaker: No Hx Peripheral Edema: No - PULMONARY Hx Asthma: Yes Hx Bronchitis: No Hx Chronic Obstructive Pulmonary Disease (COPD): No Hx Emphysema: No Hx Pneumonia: No Hx Pulmonary Embolism: No Hx Sleep Apnea: No - NEUROLOGICAL Hx Alzheimer's Disease: No Hx Dementia: No Hx Migraine: Yes Hx Multiple Sclerosis: No Hx Parkinson's Disease: No Hx Seizures: No Hx Transient Ischemic Attacks (TIA): No - HEENT Hx HEENT Problems: No - RENAL Hx Chronic Kidney Disease: No - ENDOCRINE/METABOLIC Hx Hyperthyroidism: No Hx Hypothyroidism: No - HEMATOLOGICAL/ONCOLOGICAL Hx Anemia: No Hx Human Immunodeficiency Virus (HIV): No Hx Sickle Cell Disease: No - INTEGUMENTARY Hx Squamous Cell: Yes Other/Comment: liu from salt and ice challenge - MUSCULOSKELETAL/RHEUMATOLOGICAL Hx Arthritis: No Hx Fractures: Yes Hx Osteoporosis: Yes Hx Rheumatoid Arthritis: No - GASTROINTESTINAL Hx Crohn's Disease: No Hx Diverticulitis: No Hx Gall Bladder Disease: Yes Hx Gastritis: Yes Hx Pancreatitis: No - GENITOURINARY/GYNECOLOGICAL Hx Sexually Transmitted Disorders: No - PSYCHIATRIC Hx Anxiety: Yes Hx Bipolar Disorder: Yes Hx Depression: Yes Hx Schizophrenia: No - SURGICAL HISTORY Hx Appendectomy: No Hx Carotid Endarterectomy: No Hx Cholecystectomy: No Hx Coronary Artery Bypass Graft: No Hx Coronary Stent: No Hx Tonsillectomy: Yes - ANESTHESIA Hx Anesthesia: Yes Hx Anesthesia Reactions: No Hx Malignant Hyperthermia: No Meds Home Medications: Home Medication List Medication Instructions Recorded Confirmed Type Acetaminophen [Tylenol 325mg tab] 650 mg PO Q6 PRN tab 04/29/17 Rx Sertraline [Zoloft] 25 mg PO DAILY tab 04/29/17 Rx levETIRAcetam [Keppra] 500 mg PO BID tab 04/29/17 Rx Allergies/Adverse Reactions: Allergies Allergy/AdvReac Type Severity Reaction Status Date / Time apple Allergy URTICARIA Verified 04/27/17 10:57 PEACH Allergy Mild URTICARIA Uncoded 03/09/17 12:13 PLUM Allergy URTICARIA Uncoded 03/09/17 12:13 - Medications Medications: Current Medications Acetaminophen (Tylenol 325mg Tab) 650 mg PO Q6 PRN PRN Reason: Headache Last Admin: 04/29/17 18:57 Dose: 650 mg Haloperidol (Haldol) 5 mg PO Q6 PRN PRN Reason: Agitation Haloperidol Lactate (Haldol) 5 mg IM Q6 PRN PRN Reason: Agitation and refusing prn Ceftriaxone Sodium 1 gm/ (Sodium Chloride) 100 mls @ 100 mls/hr IVPB DAILY [facility] Ketorolac Tromethamine (Toradol) 30 mg IVP Q6 PRN PRN Reason: Pain, severe (8-10) Last Admin: 05/01/17 10:17 Dose: 30 mg Levetiracetam (Keppra) 500 mg PO BID [facility] Last Admin: 05/01/17 09:58 Dose: 500 mg Lorazepam (Ativan) 2 mg IVP Q6H PRN PRN Reason: seizures Last Admin: 05/01/17 08:16 Dose: 2 mg Lorazepam (Ativan) 2 mg PO Q6 PRN PRN Reason: Agitation Risperidone (Risperdal M-Tab) 0.5 mg PO DAILY [facility] Last Admin: 05/01/17 09:59 Dose: 0.5 mg Sertraline HCl (Zoloft) 25 mg PO DAILY [facility] Last Admin: 05/01/17 09:59 Dose: 25 mg Physical Exam - Constitutional Appears: No Acute Distress - Head Exam Head Exam: NORMOCEPHALIC Additional comments: vertical scar on r frontal region - Eye Exam Eye Exam: Normal appearance - ENT Exam ENT Exam: Mucous Membranes Moist - Neck Exam Neck exam: Positive for: Full Rom - Respiratory Exam Respiratory Exam: NORMAL BREATHING PATTERN - Cardiovascular Exam Cardiovascular Exam: REGULAR RHYTHM - GI/Abdominal Exam GI & Abdominal Exam: Soft, Tenderness (RLQ). absent: Distended, Firm, Guarding , Mass, Pulsatile Mass, Rebound, Rigid - Extremities Exam Additional comments: multiple scars from previous ORIF of ankle, elbow, wrist - Back Exam Back exam: absent: CVA tenderness (L), CVA tenderness (R) - Neurological Exam Neurological exam: Alert, Oriented x3 - Psychiatric Exam Psychiatric exam: Normal Affect, Normal Mood - Skin Skin Exam: Dry, Intact, Normal Color, Warm Results - Vital Signs Recent Vital Signs: Last Vital Signs Temp 97.5 F L 05/01/17 09:00 Pulse 81 05/01/17 09:00 Resp 18 05/01/17 09:00 BP 102/68 05/01/17 09:00 Pulse Ox 97 05/01/17 09:00 - Labs Result Diagrams: 04/30/17 17:44 04/30/17 17:44 Labs: Laboratory Results - last 24 hr 04/30/17 04/30/17 04/30/17 17:44 17:44 17:45 WBC 11.5 H RBC 5.18 Hgb 12.7 Hct 40.0 MCV 77.1 L MCH 24.5 L MCHC 31.8 L RDW 13.7 Plt Count 321 Sodium 140 Potassium 4.3 Chloride 106 Carbon Dioxide 23 Anion Gap 16 BUN 16 Creatinine 0.8 Est GFR ( Amer) > 60 Est GFR (Non-Af Amer) > 60 Random Glucose 94 Calcium 9.4 Total Bilirubin 0.5 AST 25 ALT 26 Alkaline Phosphatase 85 Total Protein 7.5 Albumin 4.3 Globulin 3.2 Albumin/Globulin Ratio 1.4 Beta HCG, Quant < 2.39 Assessment & Plan - Assessment and Plan (Free Text) Plan: 21 F with PMH of cerebral palsy, depression/anxiety, bipolar disorder, s/p TBI, seizures with abdominal pain -CT abdomen/pelvis: Findings consistent with a nonspecific inflammatory process of the distal ileum; rule out pictures inflammatory enteritis (see full report) -Pain control -Will DW Dr. Karena Lopez PGY1 <Jelani Thurston - Last Filed: 05/01/17 14:19> History of Present Illness - History of Present Illness History of Present Illness: Patient was seen and examined at the bedside with the resident. Agree with resident's note above. Meds - Medications Medications: Current Medications Acetaminophen (Tylenol 325mg Tab) 650 mg PO Q6 PRN PRN Reason: Headache Last Admin: 04/29/17 18:57 Dose: 650 mg Haloperidol (Haldol) 5 mg PO Q6 PRN PRN Reason: Agitation Haloperidol Lactate (Haldol) 5 mg IM Q6 PRN PRN Reason: Agitation and refusing prn Ceftriaxone Sodium 1 gm/ (Sodium Chloride) 100 mls @ 100 mls/hr IVPB DAILY [facility] Last Admin: 05/01/17 12:40 Dose: 100 mls/hr Ketorolac Tromethamine (Toradol) 30 mg IVP Q6 PRN PRN Reason: Pain, severe (8-10) Last Admin: 05/01/17 10:17 Dose: 30 mg Levetiracetam (Keppra) 500 mg PO BID [facility] Last Admin: 05/01/17 09:58 Dose: 500 mg Lorazepam (Ativan) 2 mg IVP Q6H PRN PRN Reason: seizures Last Admin: 05/01/17 08:16 Dose: 2 mg Lorazepam (Ativan) 2 mg PO Q6 PRN PRN Reason: Agitation Risperidone (Risperdal M-Tab) 0.5 mg PO DAILY [facility] Last Admin: 05/01/17 09:59 Dose: 0.5 mg Sertraline HCl (Zoloft) 25 mg PO DAILY [facility] Last Admin: 05/01/17 09:59 Dose: 25 mg Results - Vital Signs Recent Vital Signs: Last Vital Signs Temp 97.5 F L 05/01/17 09:00 Pulse 81 05/01/17 09:00 Resp 18 05/01/17 09:00 BP 102/68 05/01/17 09:00 Pulse Ox 97 05/01/17 09:00 - Labs Result Diagrams: 04/30/17 17:44 04/30/17 17:44 Labs: Laboratory Results - last 24 hr 04/30/17 04/30/17 04/30/17 17:44 17:44 17:45 WBC 11.5 H RBC 5.18 Hgb 12.7 Hct 40.0 MCV 77.1 L MCH 24.5 L MCHC 31.8 L RDW 13.7 Plt Count 321 Sodium 140 Potassium 4.3 Chloride 106 Carbon Dioxide 23 Anion Gap 16 BUN 16 Creatinine 0.8 Est GFR ( Amer) > 60 Est GFR (Non-Af Amer) > 60 Random Glucose 94 Calcium 9.4 Total Bilirubin 0.5 AST 25 ALT 26 Alkaline Phosphatase 85 Total Protein 7.5 Albumin 4.3 Globulin 3.2 Albumin/Globulin Ratio 1.4 Beta HCG, Quant < 2.39 - Imaging and Cardiology CT scan - abdomen Status: Image reviewed by me, Report reviewed by me Assessment & Plan - Assessment and Plan (Free Text) Plan: 21 y.o. female with adenitis - Continue diet - pain control - No general surgery intervention at present time - Repeat labs in am - Will follow
[2017-05-01 16:56] VITALS: RESP 20
[2017-05-02 07:27] LABS: HEMATOCRIT 37.4 % (34.0-47.0); MEAN CELL VOLUME 77.1 fl (81.0-99.0); MEAN CORPUSCULAR HEMOGLOBIN 24.9 pg (27.0-31.0); MEAN CORPUSCULAR HGB CONC 32.3 g/dL (33.0-37.0); WHITE BLOOD COUNT 10.9 K/uL (4.8-10.8)
[2017-05-02 08:36] VITALS: BP 100/61; PULSE 68; TEMP 98.1; O2SAT 98
[2017-05-02] MEDS: Risperidone M tab 0.5MG PO SCH (08:57)
--- NOTE | 2017-05-02 10:24 | CP.PCM.PN ---
Subjective - Date & Time of Evaluation Date of Evaluation: 05/02/17 Time of Evaluation: 10:21 - Subjective Subjective: Surgery: Dr. hitchcock Pt seen and examined. Resting comfortably in bed. She has no complaints of abd pain this AM. Denies N/V/D. Objective - Vital Signs/Intake and Output Vital Signs (last 24 hours): Temp Pulse Resp BP Pulse Ox 98.1 F 68 20 100/61 98 05/02/17 08:35 05/02/17 08:35 05/02/17 08:35 05/02/17 08:35 05/02/17 08:35 - Medications Medications: Current Medications Acetaminophen (Tylenol 325mg Tab) 650 mg PO Q6 PRN PRN Reason: Headache Last Admin: 04/29/17 18:57 Dose: 650 mg Ciprofloxacin (Cipro) 500 mg PO Q12 [facility] Last Admin: 05/02/17 09:42 Dose: 500 mg Haloperidol (Haldol) 5 mg PO Q6 PRN PRN Reason: Agitation Last Admin: 05/01/17 20:58 Dose: 5 mg Haloperidol Lactate (Haldol) 5 mg IM Q6 PRN PRN Reason: Agitation and refusing prn Ketorolac Tromethamine (Toradol) 30 mg IVP Q6 PRN PRN Reason: Pain, severe (8-10) Last Admin: 05/01/17 10:17 Dose: 30 mg Levetiracetam (Keppra) 500 mg PO BID [facility] Last Admin: 05/02/17 08:57 Dose: 500 mg Lorazepam (Ativan) 2 mg IVP Q6H PRN PRN Reason: seizures Last Admin: 05/01/17 08:16 Dose: 2 mg Lorazepam (Ativan) 2 mg PO Q6 PRN PRN Reason: Agitation Last Admin: 05/01/17 23:47 Dose: 2 mg Risperidone (Risperdal M-Tab) 0.5 mg PO DAILY [facility] Last Admin: 05/02/17 08:57 Dose: 0.5 mg Sertraline HCl (Zoloft) 25 mg PO DAILY [facility] Last Admin: 05/02/17 08:57 Dose: 25 mg - Labs Labs: 05/02/17 07:15 04/30/17 17:44 PT 13.2 Seconds (9.8-13.1) H 04/27/17 23:00 INR 1.3 (0.9-1.2) H 04/27/17 23:00 APTT 30.6 Seconds (25.6-37.1) 04/27/17 23:00 - Constitutional Appears: Non-toxic, No Acute Distress - Head Exam Head Exam: ATRAUMATIC, NORMOCEPHALIC - Eye Exam Eye Exam: EOMI - ENT Exam ENT Exam: Mucous Membranes Moist - Neck Exam Neck Exam: Full ROM - Respiratory Exam Respiratory Exam: NORMAL BREATHING PATTERN. absent: Accessory Muscle Use, Respiratory Distress - GI/Abdominal Exam GI & Abdominal Exam: Soft. absent: Distended, Firm, Guarding, Rigid, Tenderness , Rebound - Extremities Exam Extremities Exam: absent: Calf Tenderness, Pedal Edema - Neurological Exam Neurological Exam: Alert, Awake Assessment and Plan - Assessment and Plan (Free Text) Assessment: 21F w. abd pain, currently resolved -wbc trending down, c/w abx -regular diet -serial abd exams -no plans for surgical intervention at this time -kennedy chand attending Zemaitis PGY3
--- NOTE | 2017-05-02 14:48 | CP.PCM.DIS ---
Provider - Provider Date of Admission: 04/27/17 21:22 Attending physician: Kate Cruz MD Primary care physician: Morris Rahman Time Spent in preparation of Discharge (in minutes): 15 Diagnosis - Discharge Diagnosis (1) New onset seizure Status: Acute (2) Chest pain Status: Acute (3) DVT prophylaxis Status: Acute (4) Major depressive disorder Status: Acute Hospital Course - Lab Results Lab Results: Micro Results 04/29/17 06:36 Nose MRSA Culture (Admit) - Final MRSA NOT DETECTED 04/29/17 06:36 Urine Urine Culture - Final Proteus Mirabilis 04/28/17 07:20 Naris MRSA Culture (Admit) - Final MRSA NOT DETECTED Most Recent Lab Values WBC 10.9 K/uL (4.8-10.8) H 05/02/17 07:15 RBC 4.85 Mil/uL (3.80-5.20) 05/02/17 07:15 Hgb 12.1 g/dL (12.0-16.0) 05/02/17 07:15 Hct 37.4 % (34.0-47.0) 05/02/17 07:15 MCV 77.1 fl (81.0-99.0) L 05/02/17 07:15 MCH 24.9 pg (27.0-31.0) L 05/02/17 07:15 MCHC 32.3 g/dL (33.0-37.0) L 05/02/17 07:15 RDW 14.0 % (11.5-14.5) 05/02/17 07:15 Plt Count 324 K/uL (130-400) 05/02/17 07:15 MPV 8.1 fl (7.2-11.7) 04/28/17 06:00 Neut % (Auto) 67.8 % (50.0-75.0) 04/28/17 06:00 Lymph % (Auto) 21.6 % (20.0-40.0) 04/28/17 06:00 [place] % (Auto) 6.0 % (0.0-10.0) 04/28/17 06:00 Eos % (Auto) 4.1 % (0.0-4.0) H 04/28/17 06:00 Baso % (Auto) 0.5 % (0.0-2.0) 04/28/17 06:00 Neut # 8.3 K/uL (1.8-7.0) H 04/28/17 06:00 Lymph # 2.7 K/uL (1.0-4.3) 04/28/17 06:00 [place] # 0.7 K/uL (0.0-0.8) 04/28/17 06:00 Eos # 0.5 K/uL (0.0-0.7) 04/28/17 06:00 Baso # 0.1 K/uL (0.0-0.2) 04/28/17 06:00 PT 13.2 Seconds (9.8-13.1) H 04/27/17 23:00 INR 1.3 (0.9-1.2) H 04/27/17 23:00 APTT 30.6 Seconds (25.6-37.1) 04/27/17 23:00 Sodium 140 mmol/l (132-148) 04/30/17 17:44 Potassium 4.3 MMOL/L (3.6-5.0) 04/30/17 17:44 Chloride 106 mmol/L (98-107) 04/30/17 17:44 Carbon Dioxide 23 mmol/L (22-30) 04/30/17 17:44 Anion Gap 16 (10-20) 04/30/17 17:44 BUN 16 mg/dl (7-17) 04/30/17 17:44 Creatinine 0.8 mg/dL (0.7-1.2) 04/30/17 17:44 Est GFR ( Amer) > 60 04/30/17 17:44 Est GFR (Non-Af Amer) > 60 04/30/17 17:44 Random Glucose 94 mg/dL (65-105) 04/30/17 17:44 Calcium 9.4 mg/dL (8.4-10.2) 04/30/17 17:44 Ionized Calcium 5.2 04/28/17 22:52 Phosphorus 4.0 mg/dl (2.5-4.5) 04/28/17 11:52 Magnesium 1.7 MG/DL (1.6-2.3) 04/28/17 11:52 Total Bilirubin 0.5 mg/dl (0.2-1.3) 04/30/17 17:44 AST 25 U/L (14-36) 04/30/17 17:44 ALT 26 U/L (9-52) 04/30/17 17:44 Alkaline Phosphatase 85 U/L (38-126) 04/30/17 17:44 Total Creatine Kinase 32 U/L (30-135) 04/28/17 11:18 Troponin I < 0.0120 ng/mL (0.00-0.120) 04/29/17 04:20 Total Protein 7.5 G/DL (6.3-8.2) 04/30/17 17:44 Albumin 4.3 g/dL (3.5-5.0) 04/30/17 17:44 Globulin 3.2 gm/dL (2.2-3.9) 04/30/17 17:44 Albumin/Globulin Ratio 1.4 (1.0-2.1) 04/30/17 17:44 Vitamin B12 539 pg/mL (239-931) 04/28/17 11:52 Folate 9.5 ng/mL 04/28/17 11:52 Prolactin 17.1 ng/mL (3.0-18.9) 04/27/17 23:00 Beta HCG, Quant < 2.39 mIU/mL 04/30/17 17:45 Urine Color Yellow (YELLOW) 04/30/17 03:11 Urine Clarity Slighty-cloudy (Clear) 04/30/17 03:11 Urine pH 6.0 (5.0-8.0) 04/30/17 03:11 Ur Specific [place] 1.020 (1.003-1.030) 04/30/17 03:11 Urine Protein 30 mg/dL (NEGATIVE) 04/30/17 03:11 Urine Glucose (UA) Neg mg/dL (Normal) 04/30/17 03:11 Urine Ketones Negative mg/dL (NEGATIVE) 04/30/17 03:11 Urine Blood Large (NEGATIVE) 04/30/17 03:11 Urine Nitrate Negative (NEGATIVE) 04/30/17 03:11 Urine Bilirubin Negative (NEGATIVE) 04/30/17 03:11 Urine Urobilinogen 0.2-1.0 mg/dL (0.2-1.0) 04/30/17 03:11 Ur Leukocyte Esterase Neg Varun/uL (Negative) 04/30/17 03:11 Urine RBC (Auto) 3 /hpf (0-3) 04/30/17 03:11 Urine Microscopic WBC 2 /hpf (0-5) 04/30/17 03:11 Ur Squamous Epith Cells 3 /hpf (0-5) 04/30/17 03:11 RPR Nonreactive (NONREACTIVE) 04/28/17 11:52 Discharge Exam - Head Exam Head Exam: ATRAUMATIC, NORMOCEPHALIC Discharge Plan - Discharge Medications Prescriptions: Ciprofloxacin HCl [Cipro] 500 mg PO BID #14 tab - Follow Up Plan Condition: GUARDED Disposition: DISCHARGE TO PSYCH HOSPITAL Instructions: New-Onset Seizure in Adults (DC) Additional Instructions: pt cleared by neuro for psych admission, will follow on 3np final dx-seizure d/o, MDD< cerebral palsy, uti cleardy by surg for abdp ain Referrals: Morris Rahman MD [Primary Care Provider] -
== END 2017-05-02 14:57 | DRG 101 ==
LOC: H.ER 21:16 → H.ERHOLD 21:22 → H.ICU/CCU 04-28 00:55 → H.MEDSURG1 04-29 18:08
PROVIDERS: ADMIT Family Medicine; ATTEND Family Medicine
PROC: 3E0234Z Introduction of Serum, Toxoid and Vaccine into Muscle, Percutaneous Approach (ICD-10-PCS; principal; 2017-04-29)
DX: G40.409 Other generalized epilepsy and epileptic syndromes, not intractable, without status epilepticus (principal); G80.9 Cerebral palsy, unspecified; N39.0 Urinary tract infection, site not specified; F31.9 Bipolar disorder, unspecified; I88.0 Nonspecific mesenteric lymphadenitis; M94.0 Chondrocostal junction syndrome [Tietze]; B96.4 Proteus (mirabilis) (morganii) as the cause of diseases classified elsewhere; F41.9 Anxiety disorder, unspecified; J45.909 Unspecified asthma, uncomplicated; Z23 Encounter for immunization; K29.70 Gastritis, unspecified, without bleeding; Z87.820 Personal history of traumatic brain injury; Z91.5 Personal history of self-harm

== ENCOUNTER 2017-05-05 11:15 | Observation (INO) | payer OTHER, MEDICAID ==
[2017-05-05 11:15] VITALS: BMI 26.9
[2017-05-05 11:42] VITALS: RESP 19; TEMP 98
--- NOTE | 2017-05-05 13:48 | ED PDOC ---
HPI: Psych/Substance Abuse Time Seen by Provider: 05/05/17 12:47 Chief Complaint (Nursing): Psychiatric Evaluation Chief Complaint (Provider): brisa eval Additional Complaint(s): 21yo F in ED for eval of mild depression states she has bene depressed without SI/HI/hallucinations x1 week and wants to speak with someone, however mother state she has been hallucinating and has been with aggressive tendencies toward family Past Medical History Reviewed: Historical Data, Nursing Documentation, Vital Signs Vital Signs: Last Vital Signs Temp 98 F 05/05/17 11:36 Pulse 82 05/05/17 11:36 Resp 19 05/05/17 11:36 BP 129/69 05/05/17 11:36 Pulse Ox 100 05/05/17 11:36 - Medical History PMH: Anxiety, Asthma, Bipolar Disorder, Depression, Fractures, Gastritis, Gall Bladder Disease, Migraine, Osteoporosis Denies: Alzheimer's Disease, Anemia, Arthritis, Atrial Fibrillation, Bronchitis, Cardia Arrhythmia, CHF, COPD, Crohn's Disease, Dementia, Diabetes, Diverticulitis, Emphysema, Hepatitis, HIV, HTN, Hypercholesterolemia, Hyperthyroidism, Hypothyroidism, Mitral Valve Prolapse, Multiple Sclerosis, Pancreatitis, Parkinson's Disease, Peripheral Edema, Personality Disorder, Pneumonia, Pulmonary Embolism, Chronic Kidney Disease, Rheumatoid Arthritis, Schizophrenia, Seizures, Sickle Cell Disease, Sexually Transmitted Disease, Sleep Apnea, TIA - Surgical History Surgical History: Tonsillectomy Denies: Appendectomy, CABG, Carotid Endarterectomy, Cholecystectomy, Coronary Stent, Pacemaker - Family History Family History: States: Unknown Family Hx - Home Medications Home Medications: Ambulatory Orders Medication Instructions Recorded LORazepam [Ativan] 0.5 mg PO Q8H PRN 02/09/17 Sertraline [Zoloft] 25 mg PO DAILY 04/27/17 levETIRAcetam [Keppra] 500 mg PO BID tab 04/29/17 Ciprofloxacin HCl [Cipro] 500 mg PO BID #14 tab 05/01/17 - Allergies Allergies/Adverse Reactions: Allergies Allergy/AdvReac Type Severity Reaction Status Date / Time apple Allergy URTICARIA Verified 04/27/17 10:57 PEACH Allergy Mild URTICARIA Uncoded 03/09/17 12:13 PLUM Allergy URTICARIA Uncoded 03/09/17 12:13 Review of Systems ROS Statement: Except As Marked, All Systems Reviewed And Found Negative Psych: Positive for: Depression Physical Exam - Reviewed Nursing Documentation Reviewed: Yes Vital Signs Reviewed: Yes - Physical Exam Appears: Positive for: Well, Non-toxic, No Acute Distress Skin: Positive for: Normal Color, Warm, DRY Eye Exam: Positive for: EOMI, Normal appearance, PERRL Neck: Positive for: Normal, Painless ROM Cardiovascular/Chest: Positive for: Regular Rate, Rhythm Respiratory: Positive for: CNT, Normal Breath Sounds Neurologic/Psych: Positive for: Alert, Oriented - Laboratory Results Result Diagrams: 05/05/17 15:19 05/05/17 15:19 - ECG O2 Sat by Pulse Oximetry: 100 - Progress ED Course And Treament: pt placed on 1:1 for flight risk and ciris eval placed. Medical Decision Making Medical Decision Making: PT will require [facility] screening. pt will need medical clearance. ED OBSERVATION Date of observation admission: 05/05/17 Time of observation admission: 16:24 - Observation admission statement Patient is being placed in observation because:: [facility] screening - Goals of Observation Goals of observation are:: disposition - Progress Note Progress Note: 05/05/17 16:30 PT is medically cleared at this time for [facility] [place]admission. 05/05/17 19:54 pt with hxof asthma, felt she was having some wheezing. on PE: pt with mild wheeze to left lung sampson, but speaking in full sentences and taking deep normal breaths. Pt given duoneb x1 and improved. 05/05/17 19:58 case will be transferred to MD amanda Disposition - Clinical Impression Clinical Impression: Depression - Patient ED Disposition Is Patient to be Admitted: Transfer of Care - Disposition Disposition Time: 19:59 Condition: STABLE Patient Signed Over To: Julia Bhatti Handoff Comments: [facility] screening
[2017-05-05 15:23] LABS: BASO # 0.1 K/uL (0.0-0.2); EOS # 0.8 K/uL (0.0-0.7); EOS % 5.6 % (0.0-4.0); HEMATOCRIT 42.1 % (34.0-47.0); LYMPH # 2.7 K/uL (1.0-4.3); LYMPH % 18.9 % (20.0-40.0); MEAN CELL VOLUME 77.3 fl (81.0-99.0); MEAN CORPUSCULAR HEMOGLOBIN 24.2 pg (27.0-31.0); MEAN CORPUSCULAR HGB CONC 31.3 g/dL (33.0-37.0); MEAN PLATELET VOLUME 8.3 fl (7.2-11.7); MONO # 0.7 K/uL (0.0-0.8); MONO % 5.1 % (0.0-10.0); NEUT # 9.8 K/uL (1.8-7.0); NEUT % 69.4 % (50.0-75.0); WHITE BLOOD COUNT 14.1 K/uL (4.8-10.8)
[2017-05-05 15:26] LABS: RBC URINE 3 /hpf (0-3); URINE BILIRUBIN NEGATIVE (NEGATIVE); URINE BLOOD NEGATIVE (NEGATIVE); URINE COLOR YELLOW (YELLOW); URINE GLUCOSE (UA) NEG (Normal); URINE KETONE NEGATIVE (NEGATIVE); URINE LEUKOCYTE ESTERASE NEG Leu/uL (Negative); URINE PROTEIN NEGATIVE (NEGATIVE); URINE UROBILINOGEN 0.2-1.0 mg/dL (0.2-1.0); WBC URINE 1 /hpf (0-5)
[2017-05-05 15:37] LABS: ALB/GLOB RATIO 1.5 (1.0-2.1); ALCOHOL SERUM < 10 mg/dl (0-10); ALKALINE PHOSPHATASE 101 U/L (38-126); ALT/SGPT 24 U/L (9-52); AST/SGOT 18 U/L (14-36); BILIRUBIN,TOTAL 0.6 mg/dl (0.2-1.3); BLOOD UREA NITROGEN 10 mg/dl (7-17); CARBON DIOXIDE 26 mmol/L (22-30); CHLORIDE 103 mmol/L (98-107); GFR AFRICAN-AMERICAN > 60; GLUCOSE,RANDOM 87 mg/dL (65-105); POTASSIUM 4.4 MMOL/L (3.6-5.0); SODIUM 141 mmol/l (132-148); TOTAL PROTEIN 7.9 G/DL (6.3-8.2)
--- NOTE | 2017-05-05 16:42 | RAD ---
HISTORY: medical exam COMPARISON: Prior single frontal chest 04/27/2017 FINDINGS: LUNGS: No active pulmonary disease. PLEURA: No significant pleural effusion identified, no pneumothorax apparent. CARDIOVASCULAR: Normal. OSSEOUS STRUCTURES: No significant abnormalities. VISUALIZED UPPER ABDOMEN: Normal. OTHER FINDINGS: None. IMPRESSION: No acute cardiopulmonary is appreciated or significant interval change.
[2017-05-05] MEDS ORDERED: Albuterol-Ipratrop 3 mg / 0.5 (3 ml) UD INH STA (18:31)
[2017-05-05] MEDS ORDERED: Albuterol-Ipratrop 3 mg / 0.5 (3 ml) UD ONE (18:41)
[2017-05-05 19:36] VITALS: BP 118/47; PULSE 97
[2017-05-05 19:58] VITALS: O2SAT 100
--- NOTE | 2017-05-05 20:05 | ED PDOC ---
- Laboratory Results Result Diagrams: 05/05/17 15:19 05/05/17 15:19 - ECG O2 Sat by Pulse Oximetry: 100 - Progress ED Course And Treament: Case endorsed to ghost writer from Tej[employer] QUILES pending [facility] screener 21:20 Patient evaluated by [facility] screener; does not meet criteria for commitment at this time. Patient is stable for discharge as per Dr. Lee Disposition - Clinical Impression Clinical Impression: Depression - POA Present On Arrival: None - Disposition Disposition: Routine/Home Disposition Time: 21:19 Condition: STABLE
--- NOTE | 2017-05-06 23:07 | CARD ---
APPROVED REPORT EKG Measurement Heart [id number] NE 108P [id number] <Conclusion> Sinus rhythm with short NE Otherwise normal ECG
== END 2017-05-05 21:22 | disposition home or self-care (01) ==
LOC: H.ER 11:15 → H.EROBSV 16:23
PROVIDERS: ADMIT Emergency Medicine; ATTEND Emergency Medicine
DX: F32.9 Major depressive disorder, single episode, unspecified (principal); Z91.018 Allergy to other foods; J45.909 Unspecified asthma, uncomplicated; F41.9 Anxiety disorder, unspecified; K29.70 Gastritis, unspecified, without bleeding; G43.909 Migraine, unspecified, not intractable, without status migrainosus; M81.0 Age-related osteoporosis without current pathological fracture
CPT/HCPCS: 71010; 80053; 80320; 80324; 80345; 80346; 80349; 80353; 80358; 80361; 81003; 81025; 83992; 85025; 93005; 94640; 96372; 99283; G0378; J2060

== ENCOUNTER 2019-01-19 10:25 | Emergency (ER) | payer OTHER, MEDICAID ==
[2019-01-19 10:39] VITALS: BMI 31.8
[2019-01-19 10:44] VITALS: O2SAT 98
[2019-01-19] MEDS ORDERED: Sodium Chloride 0.9% 1,000 ML IV STA (11:34)
[2019-01-19 11:48] LABS: SQUAMOUS EPITHIAL 3 /hpf (0-5); URINE BACTERIA FEW (<OCC); URINE BILIRUBIN NEGATIVE (NEGATIVE); URINE BLOOD NEGATIVE (NEGATIVE); URINE CLARITY SLIGHTY-CLOUDY (Clear); URINE COLOR YELLOW (YELLOW); URINE GLUCOSE (UA) NEG (NEGATIVE); URINE LEUKOCYTE ESTERASE NEG Leu/uL (Negative); URINE PROTEIN NEGATIVE (NEGATIVE); URINE UROBILINOGEN 0.2-1.0 mg/dL (0.2-1.0)
[2019-01-19 12:04] LABS: BASO % 0.4 % (0.0-2.0); EOS # 0.2 K/uL (0.0-0.7); HEMOGLOBIN 12.9 g/dL (12.0-16.0); LYMPH # 2.1 K/uL (1.0-4.3); LYMPH % 17.6 % (20.0-40.0); MEAN CELL VOLUME 75.9 fl (81.0-99.0); MEAN CORPUSCULAR HEMOGLOBIN 24.1 pg (27.0-31.0); MEAN CORPUSCULAR HGB CONC 31.7 g/dL (33.0-37.0); MEAN PLATELET VOLUME 8.4 fl (7.2-11.7); MONO # 0.7 K/uL (0.0-0.8); MONO % 5.7 % (0.0-10.0); NEUT # 8.7 K/uL (1.8-7.0); NEUT % 74.3 % (50.0-75.0); NRBC % 0.1 % (0.0-0.0); RBC 5.36 Mil/uL (3.80-5.20); RED CELL DISTRIBUTION WIDTH 15.3 % (11.5-14.5); WHITE BLOOD COUNT 11.7 K/uL (4.8-10.8)
--- NOTE | 2019-01-19 12:07 | ED PDOC ---
HPI: Abdomen Time Seen by Provider: 01/19/19 10:25 Chief Complaint (Nursing): Abdominal Pain Chief Complaint (Provider): Abdominal Pain History Per: Patient History/Exam Limitations: no limitations Onset/Duration Of Symptoms: Days (3) Additional Complaint(s): 23 y/o female here with mom presents to the ED complaining of upper abdominal pain as well as "explosive" diarrhea for 3 days. patient states pain has subside. patient denies any other symptoms at this time. PMD: Adriana Past Medical History Reviewed: Historical Data, Nursing Documentation, Vital Signs Vital Signs: Last Vital Signs Temp 97.9 F 01/19/19 10:38 Pulse 91 H 01/19/19 10:38 Resp 18 01/19/19 10:38 BP 142/85 01/19/19 10:38 Pulse Ox 98 01/19/19 10:42 Primary Care Provider: FAMILY PROVIDER,NO - Medical History PMH: Anxiety, Asthma, Bipolar Disorder, Depression, Fractures, Gastritis, Gall Bladder Disease, Migraine, Osteoporosis, Seizures Denies: Alzheimer's Disease, Anemia, Arthritis, Atrial Fibrillation, Bronchitis, Cardia Arrhythmia, CHF, COPD, Crohn's Disease, Dementia, Diabetes, Diverticulitis, Emphysema, Hepatitis, HIV, HTN, Hypercholesterolemia, Hyperthyroidism, Hypothyroidism, Mitral Valve Prolapse, Multiple Sclerosis, Pancreatitis, Parkinson's Disease, Peripheral Edema, Personality Disorder, Pneumonia, Pulmonary Embolism, Chronic Kidney Disease, Rheumatoid Arthritis, Schizophrenia, Sickle Cell Disease, Sexually Transmitted Disease, Sleep Apnea, TIA - Surgical History Surgical History: Tonsillectomy Denies: Appendectomy, CABG, Carotid Endarterectomy, Cholecystectomy, Coronary Stent, Pacemaker Other surgeries: Multiple surgical orthopedic in right knee, bilateral arms, facial fracture, and broken scalp. - Family History Family History: States: Unknown Family Hx - Social History Current smoker - smoking cessation education provided: No Alcohol: None - Immunization History Hx Tetanus Toxoid Vaccination: No Hx Influenza Vaccination: No Hx Pneumococcal Vaccination: No - Home Medications Home Medications: Ambulatory Orders Medication Instructions Recorded LORazepam [Ativan] 0.5 mg PO Q8H PRN 02/09/17 Sertraline [Zoloft] 25 mg PO DAILY 04/27/17 levETIRAcetam [Keppra] 500 mg PO BID tab 04/29/17 Ciprofloxacin HCl [Cipro] 500 mg PO BID #14 tab 05/01/17 Famotidine [Pepcid] 20 mg PO BID PRN #10 tab 01/19/19 - Allergies Allergies/Adverse Reactions: Allergies Allergy/AdvReac Type Severity Reaction Status Date / Time apple Allergy URTICARIA Verified 01/19/19 10:41 divalproex sodium AdvReac Mild VOMITING Verified 01/19/19 13:13 [From Depakote] PEACH Allergy Mild URTICARIA Uncoded 01/19/19 10:41 PLUM Allergy URTICARIA Uncoded 01/19/19 10:41 Review of Systems ROS Statement: Except As Marked, All Systems Reviewed And Found Negative Constitutional: Negative for: Fever Gastrointestinal: Positive for: Abdominal Pain Physical Exam - Reviewed Nursing Documentation Reviewed: Yes Vital Signs Reviewed: Yes - Physical Exam Appears: Positive for: Well, Non-toxic, No Acute Distress Head Exam: Positive for: ATRAUMATIC, NORMAL INSPECTION, NORMOCEPHALIC Skin: Positive for: Normal Color, Warm, Dry Eye Exam: Positive for: EOMI, Normal appearance, PERRL ENT: Positive for: Normal ENT Inspection Neck: Positive for: Normal, Painless ROM, Supple Cardiovascular/Chest: Positive for: Regular Rate, Rhythm. Negative for: Murmur Respiratory: Positive for: Normal Breath Sounds. Negative for: Wheezing Gastrointestinal/Abdominal: Positive for: Normal Exam, Soft, Tenderness (Epigastric) Back: Positive for: Normal Inspection. Negative for: L CVA Tenderness, R CVA Tenderness Extremity: Positive for: Normal ROM Neurological/Psych: Positive for: Awake, Alert, Normal Tone, Oriented (x3). Negative for: Motor/Sensory Deficits - Laboratory Results Result Diagrams: 01/19/19 11:30 01/19/19 11:30 Lab Results: Urine Color Yellow (YELLOW) 01/19/19 11:30 Urine Clarity Slighty-cloudy (Clear) 01/19/19 11:30 Urine pH 7.0 (5.0-8.0) 01/19/19 11:30 Ur Specific [place] 1.011 (1.003-1.030) 01/19/19 11:30 Urine Protein Negative mg/dL (NEGATIVE) 01/19/19 11:30 Urine Glucose (UA) Neg mg/dL (NEGATIVE) 01/19/19 11:30 Urine Ketones Negative mg/dL (NEGATIVE) 01/19/19 11:30 Urine Blood Negative (NEGATIVE) 01/19/19 11:30 Urine Nitrate Negative (NEGATIVE) 01/19/19 11:30 Urine Bilirubin Negative (NEGATIVE) 01/19/19 11:30 Urine Urobilinogen 0.2-1.0 mg/dL (0.2-1.0) 01/19/19 11:30 Ur Leukocyte Esterase Neg Varun/uL (Negative) 01/19/19 11:30 Urine RBC (Auto) 1 /hpf (0-3) 01/19/19 11:30 Urine Microscopic WBC 1 /hpf (0-5) 01/19/19 11:30 Ur Squamous Epith Cells 3 /hpf (0-5) 01/19/19 11:30 Urine Bacteria Few (<OCC) H 01/19/19 11:30 - ECG O2 Sat by Pulse Oximetry: 98 Medical Decision Making Medical Decision Making: Time:1108 Impression: Abdominal pain rule out infection, inflammation, UTI, electrolyte abnormality Plan: -CMP -Lipase -CBC -Sodium chloride -Pepcid -Zofran -Urine culture -Urinalysis 1351: FINDINGS: LOWER THORAX: Unremarkable. LIVER: Unremarkable. No gross lesion or ductal dilatation. GALLBLADDER AND BILE DUCTS: Unremarkable. PANCREAS: Unremarkable. No gross lesion or ductal dilatation. SPLEEN: Unremarkable. ADRENALS: Unremarkable. No mass. KIDNEYS AND URETERS: Unremarkable. No hydronephrosis. No solid mass. VASCULATURE: Unremarkable. No aortic aneurysm. No aortic atherosclerotic calcification or mu ral plaque present.Left hemipelvic phleboliths. BOWEL: Moderate amount of stool seen throughout the left and right colon.. No obstruction. No gross mural thickening. APPENDIX: Portions of the appendix are believed identified. PERITONEUM: . No free fluid. No free air. LYMPH NODES: Unremarkable. No enlarged lymph nodes. BLADDER: Unremarkable. REPRODUCTIVE: Full bilateral ovarian follicles and or cysts-those on the right are slightly more pronounced than those on the left. BONES: No acute fracture. OTHER FINDINGS: There is some trace asymmetrical prominence of superficial soft tissue changes around the anus and perineum this could simply be due to summation of soft tissues. Correlation with patient's clinical symptomatology is advised. No fluid like collections or abscesses here noted. IMPRESSION: No bowel obstruction, diverticulitis, or free air seen. No acute intra-ab dominal pathology appreciated. No hydronephrosis or hydroureter. Other findings as above. 1400: Patient has elevated white blood cell count noted. otherwise labs benign 1428: Patient is feeling better and tolerated po in the ED. she states she feels ready to go home, she is stable for discharge. Scribe Attestation: Documented by Selene Best, acting as a scribe for Maximo Singh. Provider Scribe Attestation: All medical record entries made by the Scribe were at my direction and personally dictated by me. I have reviewed the chart and agree that the record accurately reflects my personal performance of the history, physical exam, medical decision making, and the department course for this patient. I have also personally directed, reviewed, and agree with the discharge instructions and disposition. Disposition - Clinical Impression Clinical Impression: Gastritis - Patient ED Disposition Is Patient to be Admitted: No Counseled Patient/Family Regarding: Studies Performed, Diagnosis, Need For Followup - Disposition Disposition: Routine/Home Disposition Time: 14:10 Condition: IMPROVED Additional Instructions: follow up with your doctor in 1-2 days return to the ED with any worsening or concerning symptoms Prescriptions: Famotidine [Pepcid] 20 mg PO BID PRN #10 tab PRN Reason: Heartburn Instructions: Gastritis (DC) Forms: [employer] (Icelandic)
[2019-01-19 12:13] LABS: ALB/GLOB RATIO 1.4 (1.0-2.1); ALBUMIN 4.5 g/dL (3.5-5.0); ALT/SGPT 19 U/L (9-52); AST/SGOT 21 U/L (14-36); BLOOD UREA NITROGEN 7 mg/dl (7-17); CALCIUM 9.2 mg/dL (8.4-10.2); GFR NON-AFRICAN AMERICAN > 60; LIPASE 50 U/L (23-300)
[2019-01-19] MEDS ORDERED: Sodium Chloride 0.9% 50 ML IV ONE (13:24)
[2019-01-19] MEDS ORDERED: Iohexol 300 100 ML IJ ONE (13:24)
--- NOTE | 2019-01-19 14:03 | CT ---
Date of service: 01/19/2019 PROCEDURE: CT Abdomen and Pelvis with contrast HISTORY: abd pain COMPARISON: None. TECHNIQUE: Contrast dose: 100 mL Omnipaque 300 Radiation dose: Total exam DLP = 661.77 mGy-cm. This CT exam was performed using one or more of the following dose reduction techniques: Automated exposure control, adjustment of the mA and/or kV according to patient size, and/or use of iterative reconstruction technique. FINDINGS: LOWER THORAX: Unremarkable. LIVER: Unremarkable. No gross lesion or ductal dilatation. GALLBLADDER AND BILE DUCTS: Unremarkable. PANCREAS: Unremarkable. No gross lesion or ductal dilatation. SPLEEN: Unremarkable. ADRENALS: Unremarkable. No mass. KIDNEYS AND URETERS: Unremarkable. No hydronephrosis. No solid mass. VASCULATURE: Unremarkable. No aortic aneurysm. No aortic atherosclerotic calcification or mural plaque present.Left hemipelvic phleboliths. BOWEL: Moderate amount of stool seen throughout the left and right colon.. No obstruction. No gross mural thickening. APPENDIX: Portions of the appendix are believed identified. PERITONEUM: . No free fluid. No free air. LYMPH NODES: Unremarkable. No enlarged lymph nodes. BLADDER: Unremarkable. REPRODUCTIVE: Full bilateral ovarian follicles and or cysts-those on the right are slightly more pronounced than those on the left. BONES: No acute fracture. OTHER FINDINGS: There is some trace asymmetrical prominence of superficial soft tissue changes around the anus and perineum this could simply be due to summation of soft tissues. Correlation with patient's clinical symptomatology is advised. No fluid like collections or abscesses here noted. IMPRESSION: No bowel obstruction, diverticulitis, or free air seen. No acute intra-abdominal pathology appreciated. No hydronephrosis or hydroureter. Other findings as above.
[2019-01-19 14:38] VITALS: RESP 20; TEMP 98.6
[2019-01-19 14:46] VITALS: BP 129/60; PULSE 74
== END 2019-01-19 14:46 | disposition home or self-care (01) ==
LOC: H.ER 10:25
DX: K29.70 Gastritis, unspecified, without bleeding (principal); D72.829 Elevated white blood cell count, unspecified
CPT/HCPCS: 74177; 80053; 81003; 81025; 83690; 85025; 87086; 96361; 96374; 96375; 99284; J2405; J7030; Q9967